=== PATIENT | male | born 1970 | race Caucasian/White ===

== ENCOUNTER 2016-10-22 20:08 | Inpatient (IN) | payer MEDICAID, OTHER ==
[~2016-10-22] VITALS: Ht 167.6 cm; Wt 42.2 kg
[2016-10-22] MEDS ORDERED: TRAM-40 PO (22:16)
[2016-10-22] MEDS ORDERED: DOCU-159 PO (22:16)
[2016-10-22] MEDS ORDERED: NEPH PO (22:17)
[2016-10-22] MEDS ORDERED: SEVE800T10 PO (22:17)
[2016-10-22] MEDS ORDERED: CHOL400T10 PO (22:18)
[2016-10-22] MEDS ORDERED: PYRI100T59 PO (22:19)
[2016-10-22] MEDS ORDERED: FOLI-49 PO (22:19)
[2016-10-22] MEDS ORDERED: RANI150T5 PO (22:19)
[2016-10-22] MEDS ORDERED: NIFE60TA7 PO (22:20)
[2016-10-22] MEDS ORDERED: PARO10TA76 PO (22:21)
[2016-10-22] MEDS ORDERED: AMAN100C65 PO (22:21)
[2016-10-22 23:08] LABS: BASOPHILS % 0.1 % (0.0-2.0); EOSINOPHILS % 1.5 % (0.0-7.0); HEMATOCRIT 32.4 % (42.0-52.0); HEMOGLOBIN 10.8 g/dl (14.0-18.0); LYMPHOCYTES # 0.3 10^3/ul (0.8-2.9); LYMPHOCYTES % 8.1 % (15.0-51.0); MEAN CORPUSCULAR HEMOGLOBIN 30.7 pg (29.0-33.0); MEAN CORPUSCULAR HGB CONC 33.2 g/dl (32.0-37.0); MEAN CORPUSCULAR VOLUME 92.4 fl (82.0-101.0); MEAN PLATELET VOLUME 7.3 fl (7.4-10.4); MONOCYTE # 0.5 10^3/ul (0.3-0.9); MONOCYTES % 14.5 % (0.0-11.0); NEUTROPHIL # 2.5 10^3/ul (1.6-7.5); NEUTROPHILS % 75.8 % (39.0-77.0); PLATELET COUNT 163 10^3/UL (140-440); RED BLOOD COUNT 3.51 10^6/ul (4.70-6.10); RED CELL DISTRIBUTION WIDTH 15.4 % (11.5-14.5); UNCORRECTED WBC 3.3 10^3/ul (4.8-10.8); WHITE BLOOD COUNT 3.3 10^3/ul (4.8-10.8)
[2016-10-22 23:11] LABS: CONDITION 1; LH ANALYZER COMMENTS 1
[2016-10-22 23:17] LABS: INR 1.1; PROTIME 14.2 Sec (12.2-14.2); PT RATIO 1.1
[2016-10-22 23:18] LABS: PARTIAL THROMBOPLASTIN TIME 45.6 Sec (25.0-35.0); POTASSIUM 3.7 mmol/L (3.5-5.1)
[2016-10-22 23:20] LABS: CREATININE 2.84 mg/dl (0.61-1.24)
[2016-10-22 23:21] LABS: CALCIUM 9.4 mg/dl (8.4-10.2)
[2016-10-22 23:36] LABS: TROPONIN-I 0.57 ng/ml (0.00-0.12)
--- NOTE | 2016-10-22 23:49 | RADRPT ---
PROCEDURE: XR Chest. CLINICAL INDICATION: Patient experiencing a Headache TECHNIQUE: Single frontal chest x-ray. COMPARISON: None. FINDINGS: The lungs are clear. No focal opacification is seen. The cardiomediastinal silhouette is unremarka ble. The osseous structures are unremarkable. ECG leads projected over the chest. IMPRESSION: 1. There is no acute cardiopulmonary process. RPTAT: HJES .Quan Cowan MD, MD Date Time Electronically viewed and signed by .Quan Cowan MD, on 10/22/2016 23:48 .S/
[2016-10-23] VITALS (18 sets, daily range): BP systolic 126–155; BP diastolic 80–95; PULSE 60–86; RESP 16–18; TEMP 98; Ht 167.6 cm; Wt 42.2 kg
[2016-10-23] MEDS ORDERED: ASPIRIN 81 MG TAB PO ONE
--- NOTE | 2016-10-23 00:02 | RADRPT ---
PROCEDURE: CT Brain without contrast. CLINICAL INDICATION: Headaches TECHNIQUE: A CT of the brain was performed on a GE [employer] 64-slice CT scanner utilizing axial imaging from the skull base through the vertex without IV contrast. Multiplanar reformatted images were made. Images were reviewed on a PACS workstation. The CTDIvol is 86.10 mGy and the DLP is 162 0.51 mGycm. Study was repeated secondary to motion artifact. COMPARISON: None available FINDINGS: There is no intracranial hemorrhage, mass effect, or midline shift. No extra-axial fluid collection is seen. The ventricles and sulci are age appropriate. Mild diffuse volume loss is present. Decre ased attenuation is present in the right posterior limb of the internal capsule which may represent an acute ischemic infarct. This is anterior to a chronic right thalami capsular infarct. Extensive decreased attenuation is present in the bilateral subcortical white matter, centrum semiovale, and periventricular white matter. Decreased attenuation is also noted in the right delia randall. These ar e compatible with moderate chronic microvascular ischemic disease. The visualized scalp is remarkable for mild right frontal and left parietal scalp edema or small hem atomas. No evidence for calvarial fractures are present. The bilateral orbits are normal. The oscar ateral paranasal sinuses, mastoid air cells and middle ear cavities are clear. IMPRESSION: 1. Acute appearing non hemorrhagic right thalami capsular junction ischemic infarct anterior to a c hronic infarct in the same location. Recommend diffusion weighted MRI to further evaluate. 2. Moderate chronic microvascular ischemic disease 3. Mild diffuse volume loss. A call report was made to JOE Corley at 10/23/2016 12:01:58 AM following the completion of t he examination by the undersigned. Additional history provided is that of a wheelchair-bound dialysi s dependent diabetic patient. RPTAT: HDC .Rand Wolf MD, Date Time Electronically viewed and signed by .Rand Wolf MD, on 10/23/2016 00:02 .C/
--- NOTE | 2016-10-23 00:07 | ERA ---
ER Documentation Chief Complaint Date/Time DATE: 10/23/16 TIME: 00:04 Chief Complaint "dizziness during dialysis with high blood pressure" HPI This is a 46-year-old male l with dizziness during dialysis was severely elevated blood pressure today. Patient denied chest pain. Denies focal neurologic complaints. Patient is chair bound secondary left-sided CVA previously. No other current complaints. ROS All systems reviewed and are negative except as per history of present illness. Medications Home Meds Reported Medications Paroxetine Hcl* (Paroxetine*) 10 Mg Tablet, 10 MG PO DAILY, TAB 10/22/16 Amantadine Hcl* (Amantadine Hcl*) 100 Mg Capsule, 100 MG PO DAILY, #60 CAP 10/22/16 Nifedipine* (Nifedipine ER*) 60 Mg Tablet.sa, 60 MG PO DAILY, TAB.SA 10/22/16 Folic Acid* (Folic Acid*) 1 Mg Tablet, 1 MG PO DAILY, TAB 10/22/16 Pyridoxine Hcl* (Vitamin B-6*) 100 Mg Tablet, 100 MG PO DAILY, TAB 10/22/16 Ranitidine Hcl* (Ranitidine Hcl*) 150 Mg Tablet, 300 MG PO DAILY, #60 TAB 10/22/16 Cholecalciferol* (Vitamin D*) 400 Unit Tablet, 800 UNIT PO QHS, TAB 10/22/16 Sevelamer Hcl* (Renagel*) 800 Mg Tablet, 800 MG PO WITH MEALS, TAB 10/22/16 Multivit/Ca Carb/B Cmplx/Fa* (Germaine-Nae*) 1 Tab Tab, 1 TAB PO DAILY, TAB 10/22/16 Tramadol Hcl* (Ultram*) 50 Mg Tablet, 50 MG PO Q8 Y for PRN, TAB 10/22/16 Docusate Sodium* (Docusate Sodium*) 100 Mg Capsule, 100 MG PO DAILY, #30 CAP 10/22/16 Allergies Allergies: Coded Allergies: No Known Allergy (Unverified , 10/22/16) PMhx/Soc History of Surgery: Yes (AVF PLACEMENT) Anesthesia Reaction: No Hx Neurological Disorder: Yes (CVA WITH LEFT SIDE DEFICIT) Hx Respiratory Disorders: No Hx Cardiac Disorders: Yes (HTN, HLD) Hx Psychiatric Problems: No Hx Miscellaneous Medical Probl: Yes (CKD ON HD TTHS) Hx Alcohol Use: No Hx Substance Use: No Hx Tobacco Use: No Smoking Status: Never smoker Physical Exam Vitals Vital Signs Date Time Temp Pulse Resp B/P Pulse Ox O2 Delivery O2 Flow Rate FiO2 10/22/16 22:03 98.0 73 18 153/96 98 Room Air 10/22/16 20:26 98.4 95 18 147/89 98 Physical Exam Const: [] Head: Atraumatic Eyes: Normal Conjunctiva ENT: Normal External Ears, Nose and Mouth. Neck: Full range of motion..~ No meningismus. Resp: Clear to auscultation bilaterally Cardio: Regular rate and rhythm, no murmurs Abd: Soft, non tender, non distended. Normal bowel sounds Skin: No petechiae or rashes Back: No midline or flank tenderness Ext: No cyanosis, or edema Neur: Awake and alert Psych: Normal Mood and Affect Result Diagram: 10/22/16222910/22/162229 Results 24 hrs Laboratory Tests Test 10/22/16 22:30 Activated Partial Thromboplast Time 45.6Sec Anion Gap 16 Basophils # 0.010^3/ul Basophils % 0.1% Blood Morphology Comment Blood Urea Nitrogen 18mg/dl Calcium Level 9.4mg/dl Carbon Dioxide Level 33mmol/L Chloride Level 91mmol/L Creatinine 2.84mg/dl Eosinophils # 0.010^3/ul Eosinophils % 1.5% Glucose Level 99mg/dl Hematocrit 32.4% Hemoglobin 10.8g/dl INR International Normalized Ratio 1.10 Lymphocytes # 0.310^3/ul Lymphocytes % 8.1% Mean Corpuscular Hemoglobin 30.7pg Mean Corpuscular Hemoglobin Concent 33.2g/dl Mean Corpuscular Volume 92.4fl Mean Platelet Volume 7.3fl Monocytes # 0.510^3/ul Monocytes % 14.5% Neutrophils # 2.510^3/ul Neutrophils % 75.8% Nucleated Red Blood Cells # 0.010^3/ul Nucleated Red Blood Cells % 0.0/100WBC Platelet Count 61350^3/UL Potassium Level 3.7mmol/L Prothrombin Time 14.2Sec Prothrombin Time Ratio 1.1 Red Blood Count 3.5110^6/ul Red Cell Distribution Width 15.4% Sodium Level 136mmol/L Troponin I 0.570ng/ml White Blood Count 3.310^3/ul Current Medications Medications (Trade) Dose Ordered Sig/Bijan Route PRN Reason Start Time Stop Time Status Last Admin Dose Admin Aspirin (Aspirin) 324 mg ONCE ONCE PO 10/23/16 00:00 10/23/16 00:01 DC 10/22/16 23:59 Procedures/MDM EKG: Rate/Rhythm: Normal Sinus Rhythm QRS, ST, T-waves: No changes consistent w/ acute ischemia Impression: No evidence of ischemia or arrhythmia Chest X-ray 1V Interpreted by me: Soft Tissue: No acute abnormalities Bones: No acute abnormalities Mediastinum/Cardiac Silhouette/Lungs: No acute abnormalities CT of the head shows a subacute stroke Medical decision making: This very pleasant gentleman is a positive troponin along with a subacute stroke. Patient has been started on aspirin therapy. Emergency part. Patient will be admitted to hospitalist. Critical Care: Time: 45 minutes Treatments/Evaluations: Close monitoring and treatment of unstable vital signs, cardiorespiratory, and neurologic status, while maintaining tight balance of fluid, respiratory, and cardiac interventions. Departure Diagnosis: Primary Impression: Dizziness Additional Impressions: Non-STEMI (non-ST elevated myocardial infarction) CVA (cerebral vascular accident) Qualified Code: I63.9 - Cerebrovascular accident (CVA), unspecified mechanism Condition: Critical ACELAURARADHA HUNTEL Barney Oct 23, 2016 00:07
[2016-10-23] MEDS ORDERED: traMADol 50 MG TAB PO PRN (02:00)
[2016-10-23] MEDS: HEPARIN 5,000 UNIT/0.5 ML SYG SC SCH ×3 (02:30→21:11)
--- NOTE | 2016-10-23 02:58 | RADRPT ---
PROCEDURE: Doppler US Carotids. CLINICAL INDICATION: Headache. Right thalamic stroke. TECHNIQUE: Multiple sonographic of the carotid bifurcation region and vertebral arteries were obta ined utilizing dumont scale, duplex and color-flow imaging. The images were reviewed on a PACS worksta tion. Stenoses were measured using SRU criteria where appropriate. COMPARISON: None FINDINGS: Evaluation of the right carotid system shows no significant intimal medial thickening and no plaque formation.. Evaluation of the left carotid system shows no significant anteromedial thickening and no plaque for mation.. There is antegrade flow within the vertebral arteries bilaterally. RIGHT CAROTID MEASUREMENTS: Common Carotid Qbudbt94.1 (cm/sec) Internal Carotid Artery - wwdlucwe92.5 (cm/sec) Internal Carotid Artery - mid30.5 (cm/sec) Internal Carotid Artery - .6 (cm/sec) Internal Carotid/Common Carotid0.78 LEFT CAROTID MEASUREMENTS: Common Carotid Artery 68.1 (cm/sec) Internal Carotid Artery - proximal 47.3 (cm/sec) Internal Carotid Artery - mid 67.3(cm/sec) Internal Carotid Artery - distal 37.3(cm/sec) Internal Carotid/Common Carotid 0.99 IMPRESSION: 1. No evidence for hemodynamically significant carotid artery stenosis. 2. Normal antegrade flow in the vertebral arteries bilaterally. RPTAT: HLBE Physician Eyad Date Time Electronically viewed and signed by Physician Eyad on 10/23/2016 02:57 CHARAN/
[2016-10-23 06:03] LABS: BASOPHILS % 1.3 % (0.0-2.0); EOSINOPHILS % 1.2 % (0.0-7.0); HEMATOCRIT 33.4 % (42.0-52.0); HEMOGLOBIN 11.1 g/dl (14.0-18.0); LYMPHOCYTES # 0.3 10^3/ul (0.8-2.9); LYMPHOCYTES % 12.2 % (15.0-51.0); MEAN CORPUSCULAR HEMOGLOBIN 31.1 pg (29.0-33.0); MEAN CORPUSCULAR HGB CONC 33.4 g/dl (32.0-37.0); MEAN CORPUSCULAR VOLUME 93.2 fl (82.0-101.0); MEAN PLATELET VOLUME 7.4 fl (7.4-10.4); MONOCYTE # 0.4 10^3/ul (0.3-0.9); MONOCYTES % 14.6 % (0.0-11.0); NEUTROPHILS % 70.7 % (39.0-77.0); PLATELET COUNT 154 10^3/UL (140-440); RED BLOOD COUNT 3.58 10^6/ul (4.70-6.10); RED CELL DISTRIBUTION WIDTH 15.7 % (11.5-14.5); UNCORRECTED WBC 2.9 10^3/ul (4.8-10.8); WHITE BLOOD COUNT 2.9 10^3/ul (4.8-10.8)
[2016-10-23 06:10] LABS: ALBUMIN 3.7 g/dl (3.3-4.9)
[2016-10-23 06:11] LABS: CHLORIDE 94 mmol/L (97-110); SODIUM 136 mmol/L (135-144)
[2016-10-23 06:13] LABS: ALANINE AMINOTRANSFERASE 42 IU/L (13-69); ALKALINE PHOSPHATASE 64 IU/L (42-121); ANION GAP 15 (8-16); ASPARTATE AMINO TRANSFERASE 33 IU/L (15-46); BILIRUBIN,INDIRECT 0.1 mg/dl (0-1.1); BILIRUBIN,TOTAL 0.1 mg/dl (0.2-1.3); BLOOD UREA NITROGEN 22 mg/dl (7-20); CARBON DIOXIDE 31 mmol/L (21-31); CHOLESTEROL 95 mg/dl (100-200); CONDITION 1; CREATININE 3.56 mg/dl (0.61-1.24); GLUCOSE 78 mg/dl (70-220); LH ANALYZER COMMENTS 1; PHOSPHORUS 3.3 mg/dl (2.5-4.9); TOTAL PROTEIN 6.2 g/dl (6.1-8.1); TRIGLYCERIDES 50 mg/dl (0-149)
[2016-10-23 06:14] LABS: CALCIUM 9.5 mg/dl (8.4-10.2); CHOL/HDL RATIO 1.8 RATIO; HDL CHOLESTEROL 51 mg/dl (27-67); MAGNESIUM 2.2 mg/dl (1.7-2.5)
[2016-10-23 06:40] LABS: IRON 167 ug/dl (35-150)
[2016-10-23 06:50] LABS: TOTAL IRON BINDING CAPACITY 197 ug/dl (241-421)
[2016-10-23 07:20] LABS: FOLATE > 20.0 ng/ml (2.8-20.0)
--- NOTE | 2016-10-23 08:48 | HP ---
DATE OF ADMISSION: 10/22/2016 PRESENTING COMPLAINT: The patient was sent from dialysis center for dizziness as well as shortness of breath. PRESENTING COMPLAINT: The patient was sent from Dialysis Center for dizziness as well as shortness of breath. HISTORY OF PRESENTING COMPLAINT: This is a 46-year-old unfortunate male with a history of end-stage renal disease on hemodialysis, high blood pressure, and a previous stroke who was at dialysis today when he started having episodes of dizziness and a feeling of near syncope. The patient reported t hat he also had mild chest discomfort as well as some chest pressure, and because of that, they sent him to the emergency room for further workup. In the emergency room, he was found to have elevated troponins, and a CT scan is concerning for an acute CVA, so he is being admitted for further manage ment. PAST MEDICAL HISTORY: 1. End-stage renal disease, on hemodialysis Friday, , and Friday. 2. Depression. 3. Previous cerebrovascular accident. 4. Anemia of chronic kidney disease. 5. High blood pressure. 6. 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 PAST SURGICAL HISTORY: Dialysis access placement. ALLERGIES: THE PATIENT HAS NO KNOWN DRUG ALLERGIES. SOCIAL HISTORY: Denies tobacco, alcohol, or illicit drug use. FAMILY HISTORY: Positive for high blood pressure. REVIEW OF SYSTEMS: A 12-point review of system was done. The patient denies fever. He denies abdo jerson pain. He denies dysuria or hematuria. He had an episode of epistaxis when he first came into the emergency room. All other systems were reviewed and negative. PHYSICAL EXAMINATION: VITAL SIGNS: Temperature 98.0, pulse is 73, respirations 18, blood pressure 153/96, saturations wer e 98% on room air. GENERAL: The patient is alert and oriented, in no distress. HEENT: Head normocephalic. Pupils are equal and reactive. NECK: Supple. CHEST: Slightly reduced air entry bilaterally. CARDIOVASCULAR: Heart sounds S1 and S2, without added sounds or murmurs. ABDOMEN: Soft, nontender, nondistended. EXTREMITIES: Lower extremities are negative for edema. NEUROLOGIC: He has chronic left-sided deficits from previous CVA. LABORATORY VALUES: The following abnormalities were pertinent: A leukopenia of 3.3, a hemoglobin o f 10.8, elevated troponin of 0.570, elevated creatinine of 2.84, and his PTT was mildly elevated at 45.6. IMAGING: His chest x-ray did not show any acute cardiopulmonary abnormalities, even with radiology review, and his EKG did not show any acute ST elevations or reciprocal depressions concerning for an acute ischemia. A CT of his brain, however, did show an acute right thalamic ischemic infarct with a chronic infarct in the same location as well as moderate chronic microvascular ischemic changes. IMPRESSION: A 46-year-old unfortunate male with the followin. Dizziness, near syncope, likely secondary to #2. 2. Jqm-BW-jisldxrya myocardial infarction. 3. Acute cerebrovascular accident on chronic cerebrovascular accident with chronic residual left-si ded paralysis. 4. High blood pressure with suboptimal control. 5. End-stage renal disease, on hemodialysis. 6. Chronic debility from previous cerebrovascular accident. 7. Anemia of chronic kidney disease with associated leukopenia. 8. Chronic depression. PLAN OF CARE: The patient is to be admitted to telemetry floor and will complete the ACS rule out. He will benefit from a 2-D echocardiogram, cardiology consultation, and neurology consultation as w tonya. He will also need in-house hemodialysis. Will consult his speech and language specialist to continue that. He will also benefit from an MRI to confirm diagnosis of stroke, and once cleared by neurology he will be able to be started on physical therapy. At this time we going to hold off on statins as well as heparin because I am not sure of the extent of the stroke and the probability of concerns for maybe hemorrhagic conversion, however, if cleared by neurology, we will go ahead and institute this. In t he interim, the patient is to be started on statin as well as aspirin therapy and we will go from ere. For his comorbidities, he will be continued on all his previous home meds. For further inform ation and clarification, please review the patient's chart and my orders. For prophylaxis. I have him on heparin at the prophylaxis dose and I continued his home ranitidine as well. This plan of care has been reviewed with patient, questions have been answered. For clarification a nd further information, please review the patient's chart and my orders. Dictated By: KIA FREEDMAN MD, BA/LOURDES Conf#: [id number] DID#: [id number]
[2016-10-23] MEDS: ASPIRIN 325 MG TAB PO SCH (09:32)
[2016-10-23] MEDS: ATORVASTATIN 40 MG TAB PO SCH (09:33)
[2016-10-23] MEDS: SEVELAMER 800 MG TAB PO SCH ×3 (09:34→17:55)
[2016-10-23] MEDS: PYRIDOXINE 50 MG TAB PO SCH (09:34)
[2016-10-23] MEDS: NIFEdipine (XL) 60 MG TAB PO SCH (09:35)
[2016-10-23] MEDS: RANITIDINE 150 MG TAB PO SCH ×2 (09:35→20:39)
[2016-10-23] MEDS: DOCUSATE SODIUM 100 MG CAP PO SCH (09:36)
[2016-10-23] MEDS: FOLIC ACID 1 MG TAB PO SCH (09:36)
[2016-10-23] MEDS: PAROXETINE 10 MG TAB PO SCH (09:36)
[2016-10-23] MEDS: MULTIVIT/CA CARB/B CMPLX/FA TAB PO SCH (09:36)
[2016-10-23 09:54] LABS: CK-MB 5.07 ng/ml (0.0-2.4); TROPONIN-I 0.641 ng/ml (0.00-0.12)
--- NOTE | 2016-10-23 10:10 | QN ---
Documentation Comment Observation Note: Time: 4 hours Family Hx: Negative for diabetes Evaluation: Multiple exams showed improving symptoms and no evidence of clinical decompensation. NUBIA PAREDES MD Oct 23, 2016 10:09
--- NOTE | 2016-10-23 11:05 | RADRPT ---
PROCEDURE: MRI Brain without contrast. CLINICAL INDICATION: Weakness, acute CVA TECHNIQUE: MRI of the brain was performed on a GE [employer] 3.0T scanner with the following sequ ences obtained: Sagittal and axial T1-weighted, axial T2-weighted, axial FLAIR, axial diffusion jessika ghted (with ADC map), and coronal GRE. COMPARISON: CT brain 10/22/2016 FINDINGS: Patient motion related artifacts are present which somewhat limit evaluation. No acute/recent ische aman infarction or intracranial hemorrhage is seen. No extra-axial fluid collection is seen. There i s no mass effect or midline shift. There is an area of marked decreased T1-weighted/T2-weighted signal intensity centered in the right thalamus extending into the adjacent posterior right sanford radiata with associated susceptibility a rtifact compatible with chronic blood products/hemorrhage, and minimal adjacent encephalomalacia - g liosis noted in the adjacent posterior limb of the right internal capsule. There is suggestion of a linear tract in the left frontal lobe with mild adjacent gliosis and suscep tibility seen on the B0 images of the diffusion weighted sequence, suggestive of the sequela of prio r external ventricular drainage. Also seen is suggestion of a punctate focus of susceptibility on t he B0 images in the left randall which may reflect a chronic micro hemorrhage. A small chronic lacunar infarct is seen in the deep right frontal white matter. The ventricles and sulci are mild to moderately enlarged compatible with volume loss. There are moderate areas of incr eased T2-weighted FLAIR signal intensity in the periventricular - deep white matter which are nonspe cific but likely reflect chronic small vessel ischemic changes. Flow voids are grossly visible in t he proximal intracranial arteries and dural sinuses suggesting patency. The mastoid air cells and p aranasal sinuses are grossly clear. IMPRESSION: 1. Somewhat limited evaluation due to motion, without acute intracranial pathology identified. 2. Findings compatible with chronic hemorrhage centered in the right thalamus extending into the ri ght sanford radiata. Also seen is suggestion of a chronic micro hemorrhage in the left randall. 3. Chronic right frontal lacunar infarct. 4. Mild to moderate volume loss, with moderate chronic small vessel ischemic changes. 5. Also noted are findings suggesting the sequela of prior left trans frontal external ventricular drainage. RPTAT: HESO .Jose M Welsh MD, MD Date Time Electronically viewed and signed by .Jose M Welsh MD, on 10/23/2016 11:05 .O/
--- NOTE | 2016-10-23 12:12 | PN ---
Date/Time of Note Date/Time of Note DATE: 10/23/16 TIME: 12:06 Assessment/Plan VTE Prophylaxis VTE Prophylaxis Intervention: SCD's Assessment/Plan Chief Complaint/Hosp Course Assessment and plan 1. Dizziness and syncope suspect secondary to acute CVA. Continue antiplatelet therapy as well as statin medication. Neurologist consulted. We'll follow-up with recommendations. Of note patient did have MRI of the brain on 10/15/2016 that did show findings compatible with chronic hemorrhage centered in the right thalamus extending into the right sanford radiata. There is also seen chronic right frontal lacunar infarct. 2. Non-ST elevated microinfarction. Supply Coordinator following. Follow-up with recommendations. Of note patient does have end-stage renal disease on dialysis 3. Essential hypertension. Continue on anti-hypertensives and adjust as needed. 4. End-stage renal disease. Continue on dialysis. Monitor renal panel. 5. 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 We'll get physical therapist to follow. 6. Anemia of chronic disease. H&H remained stable. We'll monitor. 7. History of major depression. Continue on Paxil 8. History of dyslipidemia. Continue on statin medication Disposition and plan: Neurologist consulted. Follow-up with recommendations. Await cardiology input for nstemi. Continue patient monitoring Discussed plan of care with Problems: Subjective 24 Hr Interval Summary Free Text/Dictation no s/s of distress Exam/Review of Systems Vital Signs Vitals Vital Signs Date Time Temp Pulse Resp B/P Pulse Ox O2 Delivery O2 Flow Rate FiO2 10/23/16 07:19 97.9 56 16 172/99 99 Room Air Exam General: No acute signs or symptoms of distress Eyes: pupils equal round, Anicteric sclera Neck: Supple nontender, no JVD Cardiac: S1, S2 auscultated, regular rhythm and rate Pulmonary: No coarse rhonchi or breathing auscultated GI: Abdomen soft nontender nondistended, bowel sounds active Extremities: No edema bilateral lower extremities Skin: Clean dry and intact Neurologic: [Noted with some left-sided weakness Results Result Diagram: 10/23/16 0538 10/23/16 0538 Results 24 hrs Laboratory Tests Test 10/22/16 22:30 10/23/16 05:38 10/23/16 09:20 Activated Partial Thromboplast Time 45.6 H Anion Gap 16 15 Basophils # 0.0 0.0 Basophils % 0.1 1.3 Blood Morphology Comment Blood Urea Nitrogen 18 22 H Calcium Level 9.4 9.5 Carbon Dioxide Level 33 H 31 Chloride Level 91 L 94 L Creatinine 2.84 H 3.56 H Eosinophils # 0.0 0.0 Eosinophils % 1.5 1.2 Glucose Level 99 78 Hematocrit 32.4 L 33.4 L Hemoglobin 10.8 L 11.1 L INR International Normalized Ratio 1.10 Lymphocytes # 0.3 L 0.3 L Lymphocytes % 8.1 L 12.2 L Mean Corpuscular Hemoglobin 30.7 31.1 Mean Corpuscular Hemoglobin Concent 33.2 33.4 Mean Corpuscular Volume 92.4 93.2 Mean Platelet Volume 7.3 L 7.4 Monocytes # 0.5 0.4 Monocytes % 14.5 H 14.6 H Neutrophils # 2.5 2.0 Neutrophils % 75.8 70.7 Nucleated Red Blood Cells # 0.0 0.0 Nucleated Red Blood Cells % 0.0 0.0 Platelet Count 163 154 Potassium Level 3.7 4.0 Prothrombin Time 14.2 Prothrombin Time Ratio 1.1 Red Blood Count 3.51 L 3.58 L Red Cell Distribution Width 15.4 H 15.7 H Sodium Level 136 136 Troponin I 0.570 *H 0.641 *H White Blood Count 3.3 L 2.9 L Alanine Aminotransferase (ALT/SGPT) 42 Albumin 3.7 Alkaline Phosphatase 64 Aspartate Amino Transf (AST/SGOT) 33 Cholesterol Level 95 L Cholesterol/HDL Ratio 1.8 Direct Bilirubin 0.00 Folate > 20.0 H HDL Cholesterol 51 Indirect Bilirubin 0.1 Iron Level 167 H LDL Cholesterol, Calculated 34 Magnesium Level 2.2 Percent Iron Saturation 85 H Phosphorus Level 3.3 Thyroid Stimulating Hormone (TSH) 4.390 Total Bilirubin 0.1 L Total Iron Binding Capacity 197 L Total Protein 6.2 Triglycerides Level 50 Creatine Kinase 145 Creatine Kinase Index 3.5 Creatinine Kinase MB (Mass) 5.07 H Medications Medications Current Medications Amantadine HCl (Symmetrel) 100 mg DAILY PO ; Start 10/23/16 at 09:00 Cholecalciferol (Vitamin D) 800 units QHS PO ; Start 10/23/16 at 21:00 Docusate Sodium (Colace) 100 mg DAILY PO Last administered on 12/28/16at 09:36 ; Admin Dose 100 MG; Start 10/23/16 at 09:00 Folic Acid (Folic Acid) 1 mg DAILY PO Last administered on 10/23/16 09:36; Admin Dose 1 MG; Start 10/23/16 at 09:00 Multivit/Ca Carb/ B Cmplx/FA/Prenat (Germaine-Nae) 1 tab DAILY PO Last administered on 10/23/16 09:36; Admin Dose 1 TAB; Start 10/23/16 at 09:00 Nifedipine (Procardia Xl) 60 mg DAILY PO Last administered on 10/23/16 09:35 ; Admin Dose 60 MG; Start 10/23/16 at 09:00 Paroxetine HCl (Paxil) 10 mg DAILY PO Last administered on 10/23/16 09:36; Admin Dose 10 MG; Start 10/23/16 at 09:00 Pyridoxine HCl (Vitamin B6) 100 mg DAILY PO Last administered on 10/23/16 09: 34; Admin Dose 100 MG; Start 10/23/16 at 09:00 Ranitidine HCl (Zantac) 150 mg BID PO Last administered on 10/23/16 09:35; Admin Dose 150 MG; Start 10/23/16 at 09:00 Tramadol HCl (Ultram) 50 mg Q8H PRN PO PRN; Start 10/23/16 at 02:00 Aspirin (Aspirin) 325 mg DAILY PO Last administered on 10/23/16 09:32; Admin Dose 325 MG; Start 10/23/16 at 09:00 Heparin Sodium (Porcine) (Heparin (5000 Units/0.5 ml)) 5,000 unit BID SC ; Start 10/23/16 at 02:30 Atorvastatin Calcium (Lipitor) 40 mg DAILY PO Last administered on 10/23/16 09:33; Admin Dose 40 MG; Start 10/23/16 at 09:00 SANTO KIMBROUGH Oct 23, 2016 12:11
--- NOTE | 2016-10-23 12:20 | CONS ---
Date/Time of Note Date/Time of Note DATE: 10/23/16 TIME: 12:13 Assessment/Plan Assessment/Plan Additional Assessment/Plan Elevated troponin Hypertension End-stage renal disease on hemodialysis History of CVA with possible acute CVA -Patient's troponins are mildly elevated and has remained static. He denies chest pain, shortness of breath, this is likely secondary to hypertension and decreased renal clearance. Would obtain echocardiogram. Patient undergoing evaluation for possible CVA, unclear if this is acute or chronic. Would defer management to the primary team. Blood pressure has improved, will start ROMAN inhibitor. Continue statin therapy if no contraindication. Consultation Date/Type/Reason Admit Date/Time Type of Consultation: cv Reason for Consultation Elevated troponin Hx of Present Illness This is a 46-year-old male with past medical history of end-stage renal disease on hemodialysis, hypertension and CVA with left hemiparesis who presents from dialysis center secondary to hypertension and dizziness. Patient states he has been having difficult to control blood pressure for over a year. He does take his medications on a regular basis but his blood pressure remains elevated. He otherwise denies any chest pain, shortness of breath, palpitations. He feels better now but still has mild dizziness. Denies any fevers or chills, abdominal pain, nausea or vomiting. 12 point review of systems was performed with all pertinent positives and negatives mentioned above and all else is negative Past Medical History CVA Medical History: hypertension, renal disease Past Surgical History Dialysis fistula Family History Significant Family History: no pertinent family hx Social History Alcohol Use: none Smoking Status: Former smoker Drug Use: none Exam/Review of Systems Vital Signs Vitals Vital Signs Date Time Temp Pulse Resp B/P Pulse Ox O2 Delivery O2 Flow Rate FiO2 10/23/16 07:19 97.9 56 16 172/99 99 Room Air Exam No apparent distress Constitutional: alert, frail, oriented Head: normocephalic Neck: supple Respiratory: other (course breath sounds bilaterally, no wheezing) Cardiovascular: other (S1 and S2 heard), regular rate and rhythm Gastrointestinal: bowel sounds, non-tender, soft Extremities: edema (trace) Results Result Diagram: 10/23/16 0538 10/23/16 0538 Results 24 hrs Laboratory Tests Test 10/22/16 22:30 10/23/16 05:38 10/23/16 09:20 Activated Partial Thromboplast Time 45.6 H Anion Gap 16 15 Basophils # 0.0 0.0 Basophils % 0.1 1.3 Blood Morphology Comment Blood Urea Nitrogen 18 22 H Calcium Level 9.4 9.5 Carbon Dioxide Level 33 H 31 Chloride Level 91 L 94 L Creatinine 2.84 H 3.56 H Eosinophils # 0.0 0.0 Eosinophils % 1.5 1.2 Glucose Level 99 78 Hematocrit 32.4 L 33.4 L Hemoglobin 10.8 L 11.1 L INR International Normalized Ratio 1.10 Lymphocytes # 0.3 L 0.3 L Lymphocytes % 8.1 L 12.2 L Mean Corpuscular Hemoglobin 30.7 31.1 Mean Corpuscular Hemoglobin Concent 33.2 33.4 Mean Corpuscular Volume 92.4 93.2 Mean Platelet Volume 7.3 L 7.4 Monocytes # 0.5 0.4 Monocytes % 14.5 H 14.6 H Neutrophils # 2.5 2.0 Neutrophils % 75.8 70.7 Nucleated Red Blood Cells # 0.0 0.0 Nucleated Red Blood Cells % 0.0 0.0 Platelet Count 163 154 Potassium Level 3.7 4.0 Prothrombin Time 14.2 Prothrombin Time Ratio 1.1 Red Blood Count 3.51 L 3.58 L Red Cell Distribution Width 15.4 H 15.7 H Sodium Level 136 136 Troponin I 0.570 *H 0.641 *H White Blood Count 3.3 L 2.9 L Alanine Aminotransferase (ALT/SGPT) 42 Albumin 3.7 Alkaline Phosphatase 64 Aspartate Amino Transf (AST/SGOT) 33 Cholesterol Level 95 L Cholesterol/HDL Ratio 1.8 Direct Bilirubin 0.00 Folate > 20.0 H HDL Cholesterol 51 Indirect Bilirubin 0.1 Iron Level 167 H LDL Cholesterol, Calculated 34 Magnesium Level 2.2 Percent Iron Saturation 85 H Phosphorus Level 3.3 Thyroid Stimulating Hormone (TSH) 4.390 Total Bilirubin 0.1 L Total Iron Binding Capacity 197 L Total Protein 6.2 Triglycerides Level 50 Creatine Kinase 145 Creatine Kinase Index 3.5 Creatinine Kinase MB (Mass) 5.07 H Medications Medications Current Medications Amantadine HCl (Symmetrel) 100 mg DAILY PO ; Start 10/23/16 at 09:00 Cholecalciferol (Vitamin D) 800 units QHS PO ; Start 10/23/16 at 21:00 Docusate Sodium (Colace) 100 mg DAILY PO Last administered on 10/23/16 09:36 ; Admin Dose 100 MG; Start 10/23/16 at 09:00 Folic Acid (Folic Acid) 1 mg DAILY PO Last administered on 10/23/16 09:36; Admin Dose 1 MG; Start 10/23/16 at 09:00 Multivit/Ca Carb/ B Cmplx/FA/Prenat (Germaine-Nae) 1 tab DAILY PO Last administered on 10/23/16 09:36; Admin Dose 1 TAB; Start 10/23/16 at 09:00 Nifedipine (Procardia Xl) 60 mg DAILY PO Last administered on 10/23/16 09:35 ; Admin Dose 60 MG; Start 10/23/16 at 09:00 Paroxetine HCl (Paxil) 10 mg DAILY PO Last administered on 10/23/16 09:36; Admin Dose 10 MG; Start 10/23/16 at 09:00 Pyridoxine HCl (Vitamin B6) 100 mg DAILY PO Last administered on 10/23/16 09: 34; Admin Dose 100 MG; Start 10/23/16 at 09:00 Ranitidine HCl (Zantac) 150 mg BID PO Last administered on 10/23/16 09:35; Admin Dose 150 MG; Start 10/23/16 at 09:00 Tramadol HCl (Ultram) 50 mg Q8H PRN PO PRN; Start 10/23/16 at 02:00 Aspirin (Aspirin) 325 mg DAILY PO Last administered on 10/23/16 09:32; Admin Dose 325 MG; Start 10/23/16 at 09:00 Heparin Sodium (Porcine) (Heparin (5000 Units/0.5 ml)) 5,000 unit BID SC ; Start 10/23/16 at 02:30 Atorvastatin Calcium (Lipitor) 40 mg DAILY PO Last administered on 10/23/16 09:33; Admin Dose 40 MG; Start 10/23/16 at 09:00 Procedures Procedures ECG demonstrates sinus bradycardia at 54 bpm, QRS 122 ms, nonspecific STT wave abnormalities Abdulaziz Ny DO Oct 23, 2016 12:20
[2016-10-23] MEDS: AMANTADINE 100 MG CAP PO SCH (13:58)
--- NOTE | 2016-10-23 14:28 | RADRPT ---
Echocardiogram Report Patient Name: ROISE CASILLAS Gender: Male Date: 1970 Study Date: 23-Oct-2016 [place] Sewer: Nitza Brizuela RDCS Location: [facility] Ref. Physician: KIA FREEDMAN Quality: Adequate Procedures: Transthoracic echocardiogram with complete 2D, M-Mode, and doppler examination. Indications: NSTEMI. 2D/M Mode Doppler Measurement Value Normal Ranges Measurement Value Normal Ranges LVIDd 2D 5.3 3.5 - 5.6 cm AV Peak Genaro 1.6 m/sec LVIDs 2D 2.9 2.1 - 4.1 cm AV Peak PG 10.1 mmHg LVPWd 2D 1.2 0.6 - 1.1 cm LVOT Peak Genaro 1.2 m/sec IVSd 2D 1.1 0.6 - 1.1 cm LVOT Peak PG 5.9 mmHg AoR Diam 2D 2.6 2.0 - 3.7 cm MV E Peak Genaro 0.7 m/sec EDV 2D 135.4 cm3 MV A Peak Genaro 0.7 m/sec ESV 2D 25.5 cm3 MV E/A 1.0 LA Dimen 2D 3.5 2.3 - 4.0 cm MV Decel Time 230 msec MV Decel [place] 3 MV E/A 1.0 Findings Left Ventricle: Lower limits of normal systolic function. Normal left ventricular cavity size. Mild concentric left ventricular hypertrophy. Ejection fraction is visually estimated at 50 %. Tissue Doppler/Mitral Doppler indices are consistent with pseudonormalization with mildly elevated left atrial pressure (Stage II diastolic dysfunction). Right Ventricle: Normal right ventricular size. Normal right ventricular systolic function. Left Atrium: There is mild enlargement of left atrium. Right Atrium: The right atrium is normal in size. Mitral Valve: Mitral valve leaflets appear mildly thickened. Mild mitral annular calcification. Mild mitral valve regurgitation. Aortic Valve: No hemodynamically significant aortic stenosis by doppler. Aortic cusps appear mildly calcified. Trace aortic valve regurgitation. Tricuspid Valve: Normal appearance and function of the tricuspid valve with trace physiologic regurgitation. Pulmonic Valve: Pulmonic valve not well visualized. Pericardium: Normal pericardium with no significant pericardial effusion. Aorta: Normal aortic root. IVC: Normal size and normal respiratory collapse consistent with normal right atrial pressure. Pulmonary Artery: Normal pulmonary artery size. Conclusions 1.Lower limits of normal systolic function. Normal left ventricular cavity size. Mild concentric left ventricular hypertrophy. Ejection fraction is visually estimated at 50 %. Tissue Doppler/Mitral Doppler indices are consistent with pseudonormalization with mildly elevated left atrial pressure (Stage II diastolic dysfunction). 2.Normal right ventricular size. Normal right ventricular systolic function. 3.There is mild enlargement of left atrium. 4.The right atrium is normal in size. 5.Mild mitral valve regurgitation. 6.No significant valvular stenosis or regurgitation seen of remaining visualized valves. 7.Normal pericardium with no significant pericardial effusion. Electronically Signed By: Abdulaziz Ny 23-Oct-2016 14:27:48 -0800 Patient Name: ROSIE CASILLAS Study Date: 23-Oct-2016 [id number]
--- NOTE | 2016-10-23 15:40 | CONS ---
Date/Time of Note Date/Time of Note DATE: 10/23/16 TIME: 15:28 Assessment/Plan Assessment/Plan Chief Complaint/Hosp Course 46 year old M ESRD, HTN, previous CVA with hemorrhagic component likely secondary to advanced small vessel disease and uncontrolled hypertension. likely hypertensive emergency -MRI Brain reviewed, carotid duplex wnl -MRA Head without contrast ordered for further evaluation for large vessel stenosis -may continue on antiplatelet therapy with Aspirin -maintain BP<140/90 -LDL: 34 continue on current dose of statin -check HBA1C -PT/OT/Speech evaluation -will continue to follow Problems: Consultation Date/Type/Reason Admit Date/Time 10/23/16 Date of Consultation: Oct 23, 2016 Type of Consultation: eval for stroke Reason for Consultation r/o CVA hypertensive emergency Referring Provider: KIA FREEDMAN Hx of Present Illness 46 year old male with hx of ESRD on HD, HTN, previous CVA with residual left sided hemiparesis presented from dialysis center with elevated blood pressure and complaint of dizziness. Per chart he has had difficulty controlling his blood pressure for the past year, reports being compliant with meds including aspirin. Initial documented BP: 183/90. MRI shows right thalamic chronic hemorrhage, encephalomalacia and gliosis in posterior limb of right internal capsule. hemorrhage. chronic microvascular disease Constitutional: no complaints Eyes: no complaints ENT: no complaints Respiratory: no complaints Cardiovascular: no complaints Gastrointestinal: no complaints Genitourinary: no complaints Musculoskeletal: no complaints Skin: no complaints Neurologic: dizziness Past Medical History as per hpi Medical History: hypertension, renal disease Social History Alcohol Use: none Smoking Status: Former smoker Drug Use: none Exam/Review of Systems Vital Signs Vitals Vital Signs Date Time Temp Pulse Resp B/P Pulse Ox O2 Delivery O2 Flow Rate FiO2 10/23/16 14:46 97.7 82 18 136/95 100 10/23/16 14:23 Room Air Exam awake and alert no acute distress appears older than stated age, thin oriented x3 appears comfortable speech is mildly dysarthric, but fluent with no aphasia CN: LILIANA, VFF, blinks to threat, sensation intact, face symmetric on smile palate upgoing uvula midline scm/trap intact tongue midline Motor: left arm contracted with spasticity limited movement 2/5, LLE 3/5 lifts anti-gravity with drift right arm and leg full strength Sensory: intact throughout Coordination: mild ataxia on right FTN, unable to perform on left due to residual weakness Results Result Diagram: 10/23/16 0538 10/23/16 0538 Results 24 hrs Laboratory Tests Test 10/22/16 22:30 10/23/16 05:38 10/23/16 09:20 10/23/16 14:01 Activated Partial Thromboplast Time 45.6 H Anion Gap 16 15 Basophils # 0.0 0.0 Basophils % 0.1 1.3 Blood Morphology Comment Blood Urea Nitrogen 18 22 H Calcium Level 9.4 9.5 Carbon Dioxide Level 33 H 31 Chloride Level 91 L 94 L Creatinine 2.84 H 3.56 H Eosinophils # 0.0 0.0 Eosinophils % 1.5 1.2 Glucose Level 99 78 Hematocrit 32.4 L 33.4 L Hemoglobin 10.8 L 11.1 L INR International Normalized Ratio 1.10 Lymphocytes # 0.3 L 0.3 L Lymphocytes % 8.1 L 12.2 L Mean Corpuscular Hemoglobin 30.7 31.1 Mean Corpuscular Hemoglobin Concent 33.2 33.4 Mean Corpuscular Volume 92.4 93.2 Mean Platelet Volume 7.3 L 7.4 Monocytes # 0.5 0.4 Monocytes % 14.5 H 14.6 H Neutrophils # 2.5 2.0 Neutrophils % 75.8 70.7 Nucleated Red Blood Cells # 0.0 0.0 Nucleated Red Blood Cells % 0.0 0.0 Platelet Count 163 154 Potassium Level 3.7 4.0 Prothrombin Time 14.2 Prothrombin Time Ratio 1.1 Red Blood Count 3.51 L 3.58 L Red Cell Distribution Width 15.4 H 15.7 H Sodium Level 136 136 Troponin I 0.570 *H 0.641 *H White Blood Count 3.3 L 2.9 L Alanine Aminotransferase (ALT/SGPT) 42 Albumin 3.7 Alkaline Phosphatase 64 Aspartate Amino Transf (AST/SGOT) 33 Cholesterol Level 95 L Cholesterol/HDL Ratio 1.8 Direct Bilirubin 0.00 Folate > 20.0 H HDL Cholesterol 51 Indirect Bilirubin 0.1 Iron Level 167 H LDL Cholesterol, Calculated 34 Magnesium Level 2.2 Percent Iron Saturation 85 H Phosphorus Level 3.3 Thyroid Stimulating Hormone (TSH) 4.390 Total Bilirubin 0.1 L Total Iron Binding Capacity 197 L Total Protein 6.2 Triglycerides Level 50 Creatine Kinase 145 Creatine Kinase Index 3.5 Creatinine Kinase MB (Mass) 5.07 H Bedside Glucose 79 Medications Medications Current Medications Amantadine HCl (Symmetrel) 100 mg DAILY PO Last administered on 10/23/16 13: 58; Admin Dose 100 MG; Start 10/23/16 at 09:00 Cholecalciferol (Vitamin D) 800 units QHS PO ; Start 10/23/16 at 21:00 Docusate Sodium (Colace) 100 mg DAILY PO Last administered on 10/23/16 09:36 ; Admin Dose 100 MG; Start 10/23/16 at 09:00 Folic Acid (Folic Acid) 1 mg DAILY PO Last administered on 10/23/16 09:36; Admin Dose 1 MG; Start 10/23/16 at 09:00 Multivit/Ca Carb/ B Cmplx/FA/Prenat (Germaine-Nae) 1 tab DAILY PO Last administered on 10/23/16 09:36; Admin Dose 1 TAB; Start 10/23/16 at 09:00 Nifedipine (Procardia Xl) 60 mg DAILY PO Last administered on 10/23/16 09:35 ; Admin Dose 60 MG; Start 10/23/16 at 09:00 Paroxetine HCl (Paxil) 10 mg DAILY PO Last administered on 10/23/16 09:36; Admin Dose 10 MG; Start 10/23/16 at 09:00 Pyridoxine HCl (Vitamin B6) 100 mg DAILY PO Last administered on 10/23/16 09: 34; Admin Dose 100 MG; Start 10/23/16 at 09:00 Ranitidine HCl (Zantac) 150 mg BID PO Last administered on 10/23/16 09:35; Admin Dose 150 MG; Start 10/23/16 at 09:00 Tramadol HCl (Ultram) 50 mg Q8H PRN PO PRN; Start 10/23/16 at 02:00 Aspirin (Aspirin) 325 mg DAILY PO Last administered on 10/23/16 09:32; Admin Dose 325 MG; Start 10/23/16 at 09:00 Heparin Sodium (Porcine) (Heparin (5000 Units/0.5 ml)) 5,000 unit BID SC ; Start 10/23/16 at 02:30 Atorvastatin Calcium (Lipitor) 40 mg DAILY PO Last administered on 10/23/16 09:33; Admin Dose 40 MG; Start 10/23/16 at 09:00 COSMO CROWE MD Oct 23, 2016 15:39
--- NOTE | 2016-10-23 18:45 | QN ---
Documentation Comment [id number] DEEPAK BERGER MD Oct 23, 2016 18:45
--- NOTE | 2016-10-23 19:27 | CONS ---
DATE OF ADMISSION: 10/23/2016 DATE OF CONSULTATION: TYPE OF CONSULTATION: Nephrology consultation. Thank you, Dr. Ceci Freedman, and [place], for kindly asking me to see this patient in consul tation. HISTORY OF PRESENT ILLNESS: The patient is a 46-year-old male who has a history of ESRD, hypertensi on, history of aphasia, history of CVA, history of AV fistula in left upper extremity, history of G- tube placement and removal, who was sent in from the dialysis center by me because the patient was n ot feeling good, complaining of dizziness, and has uncontrolled hypertension. There was a question about patient not taking his medication and losing weight and having also some malnutrition because of not eating due to his stroke history. The patient, in the ER, was seen. The patient's blood pre ssure earlier was recorded as 153/92. The patient's brain MRI scan was done, shows somewhat limited evaluation due to motion without acute intracranial pathology. Findings compatible with chronic he morrhage centered in the right thalamus extending into the right sanford radiata, also seen are chron ic microhemorrhages in the left randall, chronic right frontal lacunar infarctions, mild to moderate vo lume loss. Also noted findings of some ____ external ventricular drainage. A carotid duplex scan d one shows no evidence for hemodynamically significant carotid artery stenosis. Brain CT scan shows acute appearing nonhemorrhagic right thalami capsular junction ischemic infarction, anterior to utility bill collector micah infarction in the same location, moderate chronic microvascular ischemic changes. Chest x-ray s hows no acute cardiopulmonary process. The patient's WBC 3.3, hematocrit 32.4, platelet count of 16 3. Sodium 132, potassium 4.1, BUN of 22, creatinine 3.56. The patient's troponin 0.570. Patient i s being admitted. The patient did have dialysis yesterday. 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 The patient has left-sided weakness, AV fistula in the left upper extremit y, history of anemia, history of G-tube placement and removal. ALLERGY HISTORY: NEGATIVE. FAMILY HISTORY: Negative at this point. SOCIAL HISTORY: Negative per patient. MEDICATION HISTORY: Includes the patient is on: 1. Amantadine. 2. Vitamin D. 3. Docusate sodium. 4. Folic acid. 5. Multiple vitamin. 6. Nifedipine. 7. Paxil. 8. Pyridoxine. 9. Ranitidine. 10. Renagel. 11. Ultram. CURRENT MEDICATIONS: The patient is on: 1. Amantadine. 2. Aspirin. 3. Lipitor. 4. Cholecalciferol. 5. Docusate sodium. 6. Folic acid. 7. Heparin subcutaneous. 8. The patient is on Paxil. 9. Pyridoxine. 10. Ranitidine. 11. Renvela. 12. Tramadol. REVIEW OF SYSTEMS: Limited because patient is aphasic for the examination. PHYSICAL EXAMINATION: GENERAL: The patient is awake, alert, aphasic, no change. VITAL SIGNS: Pulse 70, blood pressure 150/106. HEENT: Head is atraumatic, normocephalic. Pupils equal, reactive. NECK: Supple. LUNGS: Clear. CARDIOVASCULAR: S1, S2 is normal. Systolic murmur noted. ABDOMEN: Soft, nontender. Bowel sounds positive. No palpable mass or hepatosplenomegaly. EXTREMITIES: No cyanosis, clubbing, or edema. CENTRAL NERVOUS SYSTEM: The patient is awake, alert with hemiplegia noted. IMPRESSION: 1. The patient has uncontrolled hypertension. 2. Old cerebrovascular accident. 3. History of dysphagia and G-tube placement and removal, now patient is on diet at home. 4. The patient has positive troponin. 5. The patient has anemia. 6. Incomplete database. 7. Neutropenia. 8. The patient is status post hypercalcemia, but now he is hypocalcemic. PLAN: At this point is to continue to monitor. Continue to monitor blood pressure. The patient is on nifedipine. The patient will have hemodialysis done. The patient's electrolytes will be monito red. Thank you, Dr. Freedman, for kindly asking me to see this patient in nephrology consultation. Dictated By: DEEPAK BERGER MD BS/NTS Conf#: [id number] DID#: [id number] CC: KIA FREEDMAN MD; [place] CONSUMER CREDIT COUNSELOR;*EndCC*
[2016-10-23] MEDS: CHOLECALCIFEROL 400 UNITS TAB PO SCH (20:39)
[2016-10-24] VITALS (15 sets, daily range): BP systolic 127–169; BP diastolic 77–128; PULSE 60–88; RESP 16–21
[2016-10-24] MEDS: morphine 2 MG INJ IV PRN (01:00)
[2016-10-24] MEDS ORDERED: LORAZEPAM 2 MG INJ IV ONE (05:00)
[2016-10-24] MEDS: SEVELAMER 800 MG TAB PO SCH ×3 (07:53→17:55)
[2016-10-24 08:20] LABS: ALBUMIN 3.8 g/dl (3.3-4.9); POTASSIUM 4.1 mmol/L (3.5-5.1)
[2016-10-24 08:21] LABS: BASOPHILS % 0.8 % (0.0-2.0); EOSINOPHILS % 1.3 % (0.0-7.0); HEMATOCRIT 33.5 % (42.0-52.0); HEMOGLOBIN 11.1 g/dl (14.0-18.0); LYMPHOCYTES # 0.4 10^3/ul (0.8-2.9); LYMPHOCYTES % 11.7 % (15.0-51.0); MEAN CORPUSCULAR HEMOGLOBIN 30.9 pg (29.0-33.0); MEAN CORPUSCULAR VOLUME 93.5 fl (82.0-101.0); MEAN PLATELET VOLUME 7.7 fl (7.4-10.4); MONOCYTE # 0.5 10^3/ul (0.3-0.9); MONOCYTES % 13.8 % (0.0-11.0); NEUTROPHIL # 2.4 10^3/ul (1.6-7.5); NEUTROPHILS % 72.4 % (39.0-77.0); PLATELET COUNT 164 10^3/UL (140-440); RED BLOOD COUNT 3.58 10^6/ul (4.70-6.10); RED CELL DISTRIBUTION WIDTH 15.1 % (11.5-14.5); UNCORRECTED WBC 3.4 10^3/ul (4.8-10.8); WHITE BLOOD COUNT 3.4 10^3/ul (4.8-10.8)
[2016-10-24 08:22] LABS: CREATININE 3.32 mg/dl (0.61-1.24)
[2016-10-24 08:23] LABS: CALCIUM 10.2 mg/dl (8.4-10.2); PHOSPHORUS 3.4 mg/dl (2.5-4.9)
[2016-10-24 08:25] LABS: CONDITION 1; LH ANALYZER COMMENTS 1
[2016-10-24] MEDS: DOCUSATE SODIUM 100 MG CAP PO SCH (11:51)
[2016-10-24] MEDS: RANITIDINE 150 MG TAB PO SCH ×2 (11:51→23:32)
[2016-10-24] MEDS: PAROXETINE 10 MG TAB PO SCH (11:51)
[2016-10-24] MEDS: FOLIC ACID 1 MG TAB PO SCH (11:51)
[2016-10-24] MEDS: ATORVASTATIN 40 MG TAB PO SCH (11:51)
[2016-10-24] MEDS: MULTIVIT/CA CARB/B CMPLX/FA TAB PO SCH (11:51)
[2016-10-24] MEDS: ASPIRIN 325 MG TAB PO SCH (11:51)
[2016-10-24] MEDS: PYRIDOXINE 50 MG TAB PO SCH (11:52)
[2016-10-24] MEDS: AMANTADINE 100 MG CAP PO SCH (11:52)
[2016-10-24] MEDS: NIFEdipine (XL) 60 MG TAB PO SCH (11:52)
[2016-10-24] MEDS: HEPARIN 5,000 UNIT/0.5 ML SYG SC SCH (11:54)
--- NOTE | 2016-10-24 13:19 | PN ---
Date/Time of Note Date/Time of Note DATE: 10/24/16 TIME: 13:16 Assessment/Plan VTE Prophylaxis VTE Prophylaxis Intervention: SCD's Lines/Catheters [facility] [place] [facility] Urinary Cath still in place: No Assessment/Plan Assessment/Plan 1. Dizziness and syncope suspect secondary to acute CVA. Continue antiplatelet therapy as well as statin medication. Neurologist consulted. We'll follow-up with recommendations. Of note patient did have MRI of the brain on 10/15/2016 that did show findings compatible with chronic hemorrhage centered in the right thalamus extending into the right sanford radiata. There is also seen chronic right frontal lacunar infarct. - Will repeat head imaging - will hold subq heparin 2. Non-ST elevated microinfarction. Pathology Collector following. Follow-up with recommendations. Of note patient does have end-stage renal disease on dialysis 3. Essential hypertension. Continue on anti-hypertensives and adjust as needed. 4. End-stage renal disease. Continue on dialysis. Monitor renal panel. 5. 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 We'll get physical therapist to follow. 6. Anemia of chronic disease. H&H remained stable. We'll monitor. 7. History of major depression. Continue on Paxil 8. History of dyslipidemia. Continue on statin medication Subjective 24 Hr Interval Summary Free Text/Dictation no acute distress. pt not fully oriented. cachectic Exam/Review of Systems Vital Signs Vitals Vital Signs Date Time Temp Pulse Resp B/P Pulse Ox O2 Delivery O2 Flow Rate FiO2 10/24/16 12:03 98.3 110 18 169/103 95 10/24/16 04:00 Nasal Cannula 2.0 Intake and Output 10/23/16 10/23/16 10/24/16 14:59 22:59 06:59 Intake Total 550 ml 0 ml Output Total 2500 ml Balance -1950 ml 0 ml Exam General: No acute signs or symptoms of distress Eyes: pupils equal round, Anicteric sclera Neck: Supple nontender, no JVD Cardiac: S1, S2 auscultated, regular rhythm and rate Pulmonary: No coarse rhonchi or breathing auscultated GI: Abdomen soft nontender nondistended, bowel sounds active Extremities: No edema bilateral lower extremities Skin: Clean dry and intact Neurologic: [Noted with some left-sided weakness Results Result Diagram: 10/24/16 0722 10/24/16 0722 Results 24 hrs Laboratory Tests Test 10/23/16 14:01 10/24/16 07:22 Bedside Glucose 79 Albumin 3.8 Anion Gap 17 H Basophils # 0.0 Basophils % 0.8 Blood Morphology Comment Blood Urea Nitrogen 19 Calcium Level 10.2 Carbon Dioxide Level 31 Chloride Level 97 Creatinine 3.32 H Eosinophils # 0.0 Eosinophils % 1.3 Glucose Level 70 Hematocrit 33.5 L Hemoglobin 11.1 L Lymphocytes # 0.4 L Lymphocytes % 11.7 L Mean Corpuscular Hemoglobin 30.9 Mean Corpuscular Hemoglobin Concent 33.0 Mean Corpuscular Volume 93.5 Mean Platelet Volume 7.7 Monocytes # 0.5 Monocytes % 13.8 H Neutrophils # 2.4 Neutrophils % 72.4 Nucleated Red Blood Cells # 0.0 Nucleated Red Blood Cells % 0.0 Phosphorus Level 3.4 Platelet Count 164 Potassium Level 4.1 Red Blood Count 3.58 L Red Cell Distribution Width 15.1 H Sodium Level 141 White Blood Count 3.4 L Medications Medications Current Medications Amantadine HCl (Symmetrel) 100 mg DAILY PO Last administered on 10/24/16 11: 52; Admin Dose 100 MG; Start 10/23/16 at 09:00 Cholecalciferol (Vitamin D) 800 units QHS PO Last administered on 10/23/16 20 :39; Admin Dose 800 UNITS; Start 10/23/16 at 21:00 Docusate Sodium (Colace) 100 mg DAILY PO Last administered on 10/24/16 11:51 ; Admin Dose 100 MG; Start 10/23/16 at 09:00 Folic Acid (Folic Acid) 1 mg DAILY PO Last administered on 10/24/16 11:51; Admin Dose 1 MG; Start 10/23/16 at 09:00 Multivit/Ca Carb/ B Cmplx/FA/Prenat (Germaine-Nae) 1 tab DAILY PO Last administered on 10/24/16 11:51; Admin Dose 1 TAB; Start 10/23/16 at 09:00 Nifedipine (Procardia Xl) 60 mg DAILY PO Last administered on 10/24/16 11:52 ; Admin Dose 60 MG; Start 10/23/16 at 09:00 Paroxetine HCl (Paxil) 10 mg DAILY PO Last administered on 10/24/16 11:51; Admin Dose 10 MG; Start 10/23/16 at 09:00 Pyridoxine HCl (Vitamin B6) 100 mg DAILY PO Last administered on 10/24/16 11: 52; Admin Dose 100 MG; Start 10/23/16 at 09:00 Ranitidine HCl (Zantac) 150 mg BID PO Last administered on 10/24/16 11:51; Admin Dose 150 MG; Start 10/23/16 at 09:00 Tramadol HCl (Ultram) 50 mg Q8H PRN PO PRN; Start 10/23/16 at 02:00 Aspirin (Aspirin) 325 mg DAILY PO Last administered on 10/24/16 11:51; Admin Dose 325 MG; Start 10/23/16 at 09:00 Heparin Sodium (Porcine) (Heparin (5000 Units/0.5 ml)) 5,000 unit BID SC Last administered on 10/24/16 11:54; Admin Dose 5,000 UNIT; Start 10/23/16 at 02: 30 Atorvastatin Calcium (Lipitor) 40 mg DAILY PO Last administered on 10/24/16 11:51; Admin Dose 40 MG; Start 10/23/16 at 09:00 Morphine Sulfate (morphine) 2 mg Q4H PRN IV PAIN Last administered on 01:00; Admin Dose 2 MG; Start 10/24/16 at 01:00 ROGERIO SOUZA MD Oct 24, 2016 13:19
--- NOTE | 2016-10-24 16:30 | CONS ---
Date/Time of Note Date/Time of Note DATE: 10/24/16 TIME: 16:28 Consult Date/Type/Reason Admit Date/Time Oct 23, 2016 at 14:38 Initial Consult Date 10/23/16 Type of Consultation: eval for stroke Reason for Consultation evaluate for stroke Ordering Provider: KIA FREEDMAN Subjective patient complains of generalized weakness denies headache, no focal weakness reported, no new speech issues Objective Vital Signs Date Time Temp Pulse Resp B/P Pulse Ox O2 Delivery O2 Flow Rate FiO2 10/24/16 15:40 98.3 76 18 127/77 95 10/24/16 04:00 Nasal Cannula 2.0 Intake and Output 10/23/16 10/23/16 10/24/16 15:00 23:00 07:00 Intake Total 550 ml 0 ml Output Total 2500 ml Balance -1950 ml 0 ml awake and alert no acute distress appears older than stated age, thin oriented x3 appears comfortable speech is mildly dysarthric, but fluent with no aphasia CN: LILIANA, VFF, blinks to threat, sensation intact, face symmetric on smile palate upgoing uvula midline scm/trap intact tongue midline Motor: left arm contracted with spasticity limited movement 2/5, LLE 3/5 lifts anti-gravity with drift right arm and leg full strength Sensory: intact throughout Coordination: mild ataxia on right FTN, unable to perform on left due to residual weakness Results/Medications Result Diagram: 10/24/1622 10/24/1622 Results 24 hrs Laboratory Tests Test 10/24/16 07:22 Albumin 3.8 Anion Gap 17 H Basophils # 0.0 Basophils % 0.8 Blood Morphology Comment Blood Urea Nitrogen 19 Calcium Level 10.2 Carbon Dioxide Level 31 Chloride Level 97 Creatinine 3.32 H Eosinophils # 0.0 Eosinophils % 1.3 Glucose Level 70 Hematocrit 33.5 L Hemoglobin 11.1 L Lymphocytes # 0.4 L Lymphocytes % 11.7 L Mean Corpuscular Hemoglobin 30.9 Mean Corpuscular Hemoglobin Concent 33.0 Mean Corpuscular Volume 93.5 Mean Platelet Volume 7.7 Monocytes # 0.5 Monocytes % 13.8 H Neutrophils # 2.4 Neutrophils % 72.4 Nucleated Red Blood Cells # 0.0 Nucleated Red Blood Cells % 0.0 Phosphorus Level 3.4 Platelet Count 164 Potassium Level 4.1 Red Blood Count 3.58 L Red Cell Distribution Width 15.1 H Sodium Level 141 White Blood Count 3.4 L Medications Current Medications Amantadine HCl (Symmetrel) 100 mg DAILY PO Last administered on 10/24/16 11: 52; Admin Dose 100 MG; Start 10/23/16 at 09:00 Cholecalciferol (Vitamin D) 800 units QHS PO Last administered on 10/23/16 20 :39; Admin Dose 800 UNITS; Start 10/23/16 at 21:00 Docusate Sodium (Colace) 100 mg DAILY PO Last administered on 10/24/16 11:51 ; Admin Dose 100 MG; Start 10/23/16 at 09:00 Folic Acid (Folic Acid) 1 mg DAILY PO Last administered on 10/24/16 11:51; Admin Dose 1 MG; Start 10/23/16 at 09:00 Multivit/Ca Carb/ B Cmplx/FA/Prenat (Germaine-Nae) 1 tab DAILY PO Last administered on 10/24/16 11:51; Admin Dose 1 TAB; Start 10/23/16 at 09:00 Nifedipine (Procardia Xl) 60 mg DAILY PO Last administered on 10/24/16 11:52 ; Admin Dose 60 MG; Start 10/23/16 at 09:00 Paroxetine HCl (Paxil) 10 mg DAILY PO Last administered on 10/24/16 11:51; Admin Dose 10 MG; Start 10/23/16 at 09:00 Pyridoxine HCl (Vitamin B6) 100 mg DAILY PO Last administered on 10/24/16 11: 52; Admin Dose 100 MG; Start 10/23/16 at 09:00 Ranitidine HCl (Zantac) 150 mg BID PO Last administered on 10/24/16 11:51; Admin Dose 150 MG; Start 10/23/16 at 09:00 Tramadol HCl (Ultram) 50 mg Q8H PRN PO PRN; Start 10/23/16 at 02:00 Aspirin (Aspirin) 325 mg DAILY PO Last administered on 10/24/16 11:51; Admin Dose 325 MG; Start 10/23/16 at 09:00 Atorvastatin Calcium (Lipitor) 40 mg DAILY PO Last administered on 10/24/16 11:51; Admin Dose 40 MG; Start 10/23/16 at 09:00 Morphine Sulfate (morphine) 2 mg Q4H PRN IV PAIN Last administered on at 01:00; Admin Dose 2 MG; Start 10/24/16 at 01:00 Assessment/Plan Chief Complaint/Hosp Course 46 year old M ESRD, HTN, previous CVA with hemorrhagic component likely secondary to advanced small vessel disease and uncontrolled hypertension. likely hypertensive emergency -MRI Brain reviewed, carotid duplex wnl -MRA Head without contrast ordered for further evaluation for large vessel stenosis, currently pending -may continue on antiplatelet therapy with Aspirin -maintain BP<140/90 -LDL: 34 continue on current dose of statin -check HBA1C -PT/OT/Speech evaluation -will continue to follow Problems: COSMO CROWE MD Oct 24, 2016 16:30
--- NOTE | 2016-10-24 17:02 | CONS ---
Date/Time of Note Date/Time of Note DATE: 10/24/16 TIME: 17:00 Assessment/Plan Assessment/Plan Chief Complaint/Hosp Course IMPRESSION: A 46-year-old unfortunate male with the followin. HTN 2. [id number] myocardial infarction. 3. 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 4. 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 End-stage renal disease, on hemodialysis. 6. Chronic debility from previous cerebrovascular accident. 7. Anemia of chronic kidney disease with associated leukopenia. 8. Chronic depression. PLAN HD Problems: Consultation Date/Type/Reason Admit Date/Time Oct 23, 2016 at 14:38 Initial Consult Date 10/23/16 Type of Consultation: RENAL Referring Provider: KIA FREEDMAN Exam/Review of Systems Vital Signs Vitals Vital Signs Date Time Temp Pulse Resp B/P Pulse Ox O2 Delivery O2 Flow Rate FiO2 10/24/16 16:43 88 10/24/16 15:40 98.3 18 127/77 95 10/24/16 04:00 Nasal Cannula 2.0 Intake and Output 10/23/16 10/23/16 10/24/16 14:59 22:59 06:59 Intake Total 550 ml 0 ml Output Total 2500 ml Balance -1950 ml 0 ml Exam Neck: supple Respiratory: diminished breath sounds Cardiovascular: regular rate and rhythm Gastrointestinal: soft Musculoskeletal: nl extremities to inspection Extremities: normal pulses Results Result Diagram: 10/24/16 0722 10/24/16 0722 Results 24 hrs Laboratory Tests Test 10/24/16 07:22 Albumin 3.8 Anion Gap 17 H Basophils # 0.0 Basophils % 0.8 Blood Morphology Comment Blood Urea Nitrogen 19 Calcium Level 10.2 Carbon Dioxide Level 31 Chloride Level 97 Creatinine 3.32 H Eosinophils # 0.0 Eosinophils % 1.3 Glucose Level 70 Hematocrit 33.5 L Hemoglobin 11.1 L Lymphocytes # 0.4 L Lymphocytes % 11.7 L Mean Corpuscular Hemoglobin 30.9 Mean Corpuscular Hemoglobin Concent 33.0 Mean Corpuscular Volume 93.5 Mean Platelet Volume 7.7 Monocytes # 0.5 Monocytes % 13.8 H Neutrophils # 2.4 Neutrophils % 72.4 Nucleated Red Blood Cells # 0.0 Nucleated Red Blood Cells % 0.0 Phosphorus Level 3.4 Platelet Count 164 Potassium Level 4.1 Red Blood Count 3.58 L Red Cell Distribution Width 15.1 H Sodium Level 141 White Blood Count 3.4 L Medications Medications Current Medications Amantadine HCl (Symmetrel) 100 mg DAILY PO Last administered on 10/24/16 11: 52; Admin Dose 100 MG; Start 10/23/16 at 09:00 Cholecalciferol (Vitamin D) 800 units QHS PO Last administered on 10/23/16 20 :39; Admin Dose 800 UNITS; Start 10/23/16 at 21:00 Docusate Sodium (Colace) 100 mg DAILY PO Last administered on 10/24/16 11:51 ; Admin Dose 100 MG; Start 10/23/16 at 09:00 Folic Acid (Folic Acid) 1 mg DAILY PO Last administered on 10/24/16 11:51; Admin Dose 1 MG; Start 10/23/16 at 09:00 Multivit/Ca Carb/ B Cmplx/FA/Prenat (Germaine-Nae) 1 tab DAILY PO Last administered on 10/24/16 11:51; Admin Dose 1 TAB; Start 10/23/16 at 09:00 Nifedipine (Procardia Xl) 60 mg DAILY PO Last administered on 10/24/16 11:52 ; Admin Dose 60 MG; Start 10/23/16 at 09:00 Paroxetine HCl (Paxil) 10 mg DAILY PO Last administered on 10/24/16 11:51; Admin Dose 10 MG; Start 10/23/16 at 09:00 Pyridoxine HCl (Vitamin B6) 100 mg DAILY PO Last administered on 10/24/16 11: 52; Admin Dose 100 MG; Start 10/23/16 at 09:00 Ranitidine HCl (Zantac) 150 mg BID PO Last administered on 10/24/16 11:51; Admin Dose 150 MG; Start 10/23/16 at 09:00 Tramadol HCl (Ultram) 50 mg Q8H PRN PO PRN; Start 10/23/16 at 02:00 Aspirin (Aspirin) 325 mg DAILY PO Last administered on 10/24/16 11:51; Admin Dose 325 MG; Start 10/23/16 at 09:00 Atorvastatin Calcium (Lipitor) 40 mg DAILY PO Last administered on 10/24/16 11:51; Admin Dose 40 MG; Start 10/23/16 at 09:00 Morphine Sulfate (morphine) 2 mg Q4H PRN IV PAIN Last administered on at 01:00; Admin Dose 2 MG; Start 10/24/16 at 01:00 DEEPAK BERGER MD Oct 24, 2016 17:02
--- NOTE | 2016-10-24 23:06 | CONS ---
Date/Time of Note Date/Time of Note DATE: 10/24/16 TIME: 23:02 Assessment/Plan Assessment/Plan Additional Assessment/Plan Elevated troponin Hypertension End-stage renal disease on hemodialysis History of CVA with possible acute CVA Low normal EF 50% -pt feeling better, BP trend slightly elevated, will add ROMAN-I, decrease asa to 81mg if no contraindication. Consultation Date/Type/Reason Admit Date/Time Oct 23, 2016 at 14:38 Initial Consult Date 10/23/16 Type of Consultation: cv Referring Provider: KIA FREEDMAN 24 HR Interval Summary Free Text/Dictation denies sob, cp Exam/Review of Systems Vital Signs Vitals Vital Signs Date Time Temp Pulse Resp B/P Pulse Ox O2 Delivery O2 Flow Rate FiO2 10/24/16 20:43 70 10/24/16 19:12 98.7 16 138/82 98 10/24/16 04:00 Nasal Cannula 2.0 Intake and Output 10/23/16 10/23/16 10/24/16 15:00 23:00 07:00 Intake Total 550 ml 0 ml Output Total 2500 ml Balance -1950 ml 0 ml Exam nad Constitutional: alert, oriented Head: normocephalic Respiratory: other (course bs, no wheeze) Cardiovascular: other (s1s2), regular rate and rhythm Gastrointestinal: bowel sounds, non-tender, soft Extremities: edema (trace) Results Result Diagram: 10/24/16 0722 10/24/16 0722 Results 24 hrs Laboratory Tests Test 10/24/16 07:22 Albumin 3.8 Anion Gap 17 H Basophils # 0.0 Basophils % 0.8 Blood Morphology Comment Blood Urea Nitrogen 19 Calcium Level 10.2 Carbon Dioxide Level 31 Chloride Level 97 Creatinine 3.32 H Eosinophils # 0.0 Eosinophils % 1.3 Glucose Level 70 Hematocrit 33.5 L Hemoglobin 11.1 L Lymphocytes # 0.4 L Lymphocytes % 11.7 L Mean Corpuscular Hemoglobin 30.9 Mean Corpuscular Hemoglobin Concent 33.0 Mean Corpuscular Volume 93.5 Mean Platelet Volume 7.7 Monocytes # 0.5 Monocytes % 13.8 H Neutrophils # 2.4 Neutrophils % 72.4 Nucleated Red Blood Cells # 0.0 Nucleated Red Blood Cells % 0.0 Phosphorus Level 3.4 Platelet Count 164 Potassium Level 4.1 Red Blood Count 3.58 L Red Cell Distribution Width 15.1 H Sodium Level 141 White Blood Count 3.4 L Medications Medications Current Medications Amantadine HCl (Symmetrel) 100 mg DAILY PO Last administered on 10/24/16 11: 52; Admin Dose 100 MG; Start 10/23/16 at 09:00 Cholecalciferol (Vitamin D) 800 units QHS PO Last administered on 10/23/16 20 :39; Admin Dose 800 UNITS; Start 10/23/16 at 21:00 Docusate Sodium (Colace) 100 mg DAILY PO Last administered on 10/24/16 11:51 ; Admin Dose 100 MG; Start 10/23/16 at 09:00 Folic Acid (Folic Acid) 1 mg DAILY PO Last administered on 10/24/16 11:51; Admin Dose 1 MG; Start 10/23/16 at 09:00 Multivit/Ca Carb/ B Cmplx/FA/Prenat (Germaine-Nae) 1 tab DAILY PO Last administered on 10/24/16 11:51; Admin Dose 1 TAB; Start 10/23/16 at 09:00 Nifedipine (Procardia Xl) 60 mg DAILY PO Last administered on 10/24/16 11:52 ; Admin Dose 60 MG; Start 10/23/16 at 09:00 Paroxetine HCl (Paxil) 10 mg DAILY PO Last administered on 10/24/16 11:51; Admin Dose 10 MG; Start 10/23/16 at 09:00 Pyridoxine HCl (Vitamin B6) 100 mg DAILY PO Last administered on 10/24/16 11: 52; Admin Dose 100 MG; Start 10/23/16 at 09:00 Ranitidine HCl (Zantac) 150 mg BID PO Last administered on 10/24/16 11:51; Admin Dose 150 MG; Start 10/23/16 at 09:00 Tramadol HCl (Ultram) 50 mg Q8H PRN PO PRN; Start 10/23/16 at 02:00 Aspirin (Aspirin) 325 mg DAILY PO Last administered on 10/24/16 11:51; Admin Dose 325 MG; Start 10/23/16 at 09:00 Atorvastatin Calcium (Lipitor) 40 mg DAILY PO Last administered on 10/24/16 11:51; Admin Dose 40 MG; Start 10/23/16 at 09:00 Morphine Sulfate (morphine) 2 mg Q4H PRN IV PAIN Last administered on at 01:00; Admin Dose 2 MG; Start 10/24/16 at 01:00 Abdulaziz Ny DO Oct 24, 2016 23:06
[2016-10-24] MEDS: CHOLECALCIFEROL 400 UNITS TAB PO SCH (23:32)
[2016-10-25] VITALS (20 sets, daily range): BP systolic 115–182; BP diastolic 72–104; PULSE 63–108; RESP 16–18
[2016-10-25] MEDS: hydrALAzine 20 MG INJ IV PRN ×2 (00:35→06:38)
[2016-10-25 06:39] LABS: BASOPHILS % 0.3 % (0.0-2.0); EOSINOPHILS % 1.2 % (0.0-7.0); HEMATOCRIT 34.6 % (42.0-52.0); HEMOGLOBIN 11.6 g/dl (14.0-18.0); LYMPHOCYTES # 0.4 10^3/ul (0.8-2.9); LYMPHOCYTES % 11.4 % (15.0-51.0); MEAN CORPUSCULAR HEMOGLOBIN 31.1 pg (29.0-33.0); MEAN CORPUSCULAR HGB CONC 33.5 g/dl (32.0-37.0); MEAN PLATELET VOLUME 7.7 fl (7.4-10.4); MONOCYTE # 0.7 10^3/ul (0.3-0.9); MONOCYTES % 17.8 % (0.0-11.0); NEUTROPHIL # 2.6 10^3/ul (1.6-7.5); NEUTROPHILS % 69.3 % (39.0-77.0); PLATELET COUNT 163 10^3/UL (140-440); RED BLOOD COUNT 3.72 10^6/ul (4.70-6.10); RED CELL DISTRIBUTION WIDTH 14.8 % (11.5-14.5); UNCORRECTED WBC 3.8 10^3/ul (4.8-10.8); WHITE BLOOD COUNT 3.8 10^3/ul (4.8-10.8)
[2016-10-25 06:47] LABS: CONDITION 1; LH ANALYZER COMMENTS 1
[2016-10-25 07:07] LABS: POTASSIUM 4.2 mmol/L (3.5-5.1)
[2016-10-25 07:10] LABS: CALCIUM 10.9 mg/dl (8.4-10.2); CREATININE 5.47 mg/dl (0.61-1.24); PHOSPHORUS 3.5 mg/dl (2.5-4.9)
--- NOTE | 2016-10-25 08:17 | RADRPT ---
PROCEDURE: MRA Head without contrast. CLINICAL INDICATION: Neurologic deficit TECHNIQUE: MRA of the brain was performed utilizing 3-D [id number] imaging without intravenous contrast. Source and MIP images were reviewed. COMPARISON: Correlation brain MRI yesterday FINDINGS: No significant focal proximal stenosis or large vessel occlusion of the bilateral intracranial ICA, bilateral MCA, or bilateral NILSA. There is also no significant focal proximal stenosis or large vess el occlusion of the bilateral intradural vertebral artery segments, basilar artery, or bilateral INTAKE ASSESSOR . right INTAKE ASSESSOR noted. No aneurysm is identified. IMPRESSION: No evidence of significant stenosis or large vessel occlusion. RPTAT: AA .Konstantin Mahoney MD, MD Date Time Electronically viewed and signed by .Konstantin Mahoney MD, on 10/25/2016 08:17 .T/
[2016-10-25] MEDS ORDERED: LISINOPRIL 5 MG TAB PO SCH (09:00)
[2016-10-25] MEDS: LISINOPRIL 5 MG TAB PO SCH ×2 (09:21→21:49)
[2016-10-25] MEDS: PAROXETINE 10 MG TAB PO SCH (09:21)
[2016-10-25] MEDS: ASPIRIN 81 MG TAB PO SCH (09:22)
[2016-10-25] MEDS: FOLIC ACID 1 MG TAB PO SCH (09:22)
[2016-10-25] MEDS: MULTIVIT/CA CARB/B CMPLX/FA TAB PO SCH (09:22)
[2016-10-25] MEDS: NIFEdipine (XL) 60 MG TAB PO SCH (09:22)
[2016-10-25] MEDS: RANITIDINE 150 MG TAB PO SCH ×2 (09:22→21:49)
[2016-10-25] MEDS: DOCUSATE SODIUM 100 MG CAP PO SCH (09:22)
[2016-10-25] MEDS: SEVELAMER 800 MG TAB PO SCH ×3 (09:22→17:59)
[2016-10-25] MEDS: AMANTADINE 100 MG CAP PO SCH (09:22)
[2016-10-25] MEDS: ATORVASTATIN 40 MG TAB PO SCH (09:22)
[2016-10-25] MEDS: PYRIDOXINE 50 MG TAB PO SCH (09:22)
--- NOTE | 2016-10-25 10:20 | CONS ---
Date/Time of Note Date/Time of Note DATE: 10/25/16 TIME: 10:17 Assessment/Plan Assessment/Plan Additional Assessment/Plan Mild Elevated troponin Hypertension End-stage renal disease on hemodialysis History of CVA with possible acute CVA Low normal EF 50% -Patient with elevated blood pressure today, ROMAN inhibitor was just started this morning, if needed, could uptitrate, otherwise continue aspirin, statin therapy. No beta kalyani secondary to bradycardia. Consultation Date/Type/Reason Admit Date/Time Oct 23, 2016 at 14:38 Initial Consult Date 10/23/16 Type of Consultation: cv Referring Provider: KIA FREEDMAN 24 HR Interval Summary Free Text/Dictation Denies shortness of breath, chest pain or palpitations Exam/Review of Systems Vital Signs Vitals Vital Signs Date Time Temp Pulse Resp B/P Pulse Ox O2 Delivery O2 Flow Rate FiO2 10/25/16 08:43 99 10/25/16 08:05 98.6 18 173/104 98 10/24/16 04:00 Nasal Cannula 2.0 Intake and Output 10/24/16 10/24/16 10/25/16 15:00 23:00 07:00 Intake Total 0 ml 360 ml 100 ml Balance 0 ml 360 ml 100 ml Exam No apparent distress Constitutional: alert, frail, oriented Head: normocephalic Neck: supple Respiratory: other (course breath sounds bilaterally, no wheezing) Cardiovascular: other (S1-S2 heard), regular rate and rhythm, systolic murmur Gastrointestinal: bowel sounds, non-tender, soft Extremities: other (no edema) Results Result Diagram: 10/25/16 0552 10/25/16 0552 Results 24 hrs Laboratory Tests Test 10/25/16 05:52 Albumin 4.0 Anion Gap 17 H Basophils # 0.0 Basophils % 0.3 Blood Morphology Comment Blood Urea Nitrogen 39 #H Calcium Level 10.9 H Carbon Dioxide Level 29 Chloride Level 98 Creatinine 5.47 #H Eosinophils # 0.0 Eosinophils % 1.2 Glucose Level 80 Hematocrit 34.6 L Hemoglobin 11.6 L Lymphocytes # 0.4 L Lymphocytes % 11.4 L Mean Corpuscular Hemoglobin 31.1 Mean Corpuscular Hemoglobin Concent 33.5 Mean Corpuscular Volume 93.0 Mean Platelet Volume 7.7 Monocytes # 0.7 Monocytes % 17.8 H Neutrophils # 2.6 Neutrophils % 69.3 Nucleated Red Blood Cells # 0.0 Nucleated Red Blood Cells % 0.0 Phosphorus Level 3.5 Platelet Count 163 Potassium Level 4.2 Red Blood Count 3.72 L Red Cell Distribution Width 14.8 H Sodium Level 140 White Blood Count 3.8 L Medications Medications Current Medications Amantadine HCl (Symmetrel) 100 mg DAILY PO Last administered on 10/25/16 09: 22; Admin Dose 100 MG; Start 10/23/16 at 09:00 Cholecalciferol (Vitamin D) 800 units QHS PO Last administered on 10/24/16 23 :32; Admin Dose 800 UNITS; Start 10/23/16 at 21:00 Docusate Sodium (Colace) 100 mg DAILY PO Last administered on 10/25/16 09:22 ; Admin Dose 100 MG; Start 10/23/16 at 09:00 Folic Acid (Folic Acid) 1 mg DAILY PO Last administered on 10/25/16 09:22; Admin Dose 1 MG; Start 10/23/16 at 09:00 Multivit/Ca Carb/ B Cmplx/FA/Prenat (Germaine-Nae) 1 tab DAILY PO Last administered on 10/25/16 09:22; Admin Dose 1 TAB; Start 10/23/16 at 09:00 Nifedipine (Procardia Xl) 60 mg DAILY PO Last administered on 10/25/16 09:22 ; Admin Dose 60 MG; Start 10/23/16 at 09:00 Paroxetine HCl (Paxil) 10 mg DAILY PO Last administered on 10/25/16 09:21; Admin Dose 10 MG; Start 10/23/16 at 09:00 Pyridoxine HCl (Vitamin B6) 100 mg DAILY PO Last administered on 10/25/16 09: 22; Admin Dose 100 MG; Start 10/23/16 at 09:00 Ranitidine HCl (Zantac) 150 mg BID PO Last administered on 10/25/16 09:22; Admin Dose 150 MG; Start 10/23/16 at 09:00 Tramadol HCl (Ultram) 50 mg Q8H PRN PO PRN; Start 10/23/16 at 02:00 Atorvastatin Calcium (Lipitor) 40 mg DAILY PO Last administered on 10/25/16 09:22; Admin Dose 40 MG; Start 10/23/16 at 09:00 Morphine Sulfate (morphine) 2 mg Q4H PRN IV PAIN Last administered on 01:00; Admin Dose 2 MG; Start 10/24/16 at 01:00 Aspirin (Aspirin) 81 mg DAILY PO Last administered on 10/25/16at 09:22; Admin Dose 81 MG; Start 10/25/16 at 09:00 Lisinopril (Zestril) 5 mg BID PO Last administered on 10/25/16at 09:21; Admin Dose 5 MG; Start 10/25/16 at 09:00 Hydralazine HCl (Apresoline) 10 mg Q6H PRN IV sbp>160mmhg Last administered on 10/25/16at 06:38; Admin Dose 10 MG; Start 10/25/16 at 00:00 Abdulaziz Ny DO Oct 25, 2016 10:20
--- NOTE | 2016-10-25 18:17 | CONS ---
Date/Time of Note Date/Time of Note DATE: 10/25/16 TIME: 18:17 Assessment/Plan Assessment/Plan Chief Complaint/Hosp Course IMPRESSION: A 46-year-old unfortunate male with the followin. HTN 2. [id number] myocardial infarction. 3. 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 End-stage renal disease, on hemodialysis. 6. Chronic debility from previous cerebrovascular accident. 7. Anemia of chronic kidney disease with associated leukopenia. 8. Chronic depression. 9 HYPERCALCEMIA PLAN HD Problems: Consultation Date/Type/Reason Admit Date/Time Oct 23, 2016 at 14:38 Initial Consult Date 10/23/16 Type of Consultation: RENAL Referring Provider: KIA FREEDMAN 24 HR Interval Summary Constitutional: no complaints Exam/Review of Systems Vital Signs Vitals Vital Signs Date Time Temp Pulse Resp B/P Pulse Ox O2 Delivery O2 Flow Rate FiO2 10/25/16 17:15 78 15 10/25/16 17:02 98.0 137/85 98 10/24/16 04:00 Nasal Cannula 2.0 Intake and Output 10/24/16 10/24/16 10/25/16 15:00 23:00 07:00 Intake Total 0 ml 360 ml 100 ml Balance 0 ml 360 ml 100 ml Exam Respiratory: clear to auscultation Cardiovascular: regular rate and rhythm Gastrointestinal: soft Musculoskeletal: nl extremities to inspection Extremities: normal pulses Results Result Diagram: 10/25/16 0552 10/25/16 0552 Results 24 hrs Laboratory Tests Test 10/25/16 05:52 Albumin 4.0 Anion Gap 17 H Basophils # 0.0 Basophils % 0.3 Blood Morphology Comment Blood Urea Nitrogen 39 #H Calcium Level 10.9 H Carbon Dioxide Level 29 Chloride Level 98 Creatinine 5.47 #H Eosinophils # 0.0 Eosinophils % 1.2 Glucose Level 80 Hematocrit 34.6 L Hemoglobin 11.6 L Lymphocytes # 0.4 L Lymphocytes % 11.4 L Mean Corpuscular Hemoglobin 31.1 Mean Corpuscular Hemoglobin Concent 33.5 Mean Corpuscular Volume 93.0 Mean Platelet Volume 7.7 Monocytes # 0.7 Monocytes % 17.8 H Neutrophils # 2.6 Neutrophils % 69.3 Nucleated Red Blood Cells # 0.0 Nucleated Red Blood Cells % 0.0 Phosphorus Level 3.5 Platelet Count 163 Potassium Level 4.2 Red Blood Count 3.72 L Red Cell Distribution Width 14.8 H Sodium Level 140 White Blood Count 3.8 L Medications Medications Current Medications Amantadine HCl (Symmetrel) 100 mg DAILY PO Last administered on 10/25/16 09: 22; Admin Dose 100 MG; Start 10/23/16 at 09:00 Cholecalciferol (Vitamin D) 800 units QHS PO Last administered on 10/24/16 23 :32; Admin Dose 800 UNITS; Start 10/23/16 at 21:00 Docusate Sodium (Colace) 100 mg DAILY PO Last administered on 10/25/16 09:22 ; Admin Dose 100 MG; Start 10/23/16 at 09:00 Folic Acid (Folic Acid) 1 mg DAILY PO Last administered on 10/25/16 09:22; Admin Dose 1 MG; Start 10/23/16 at 09:00 Multivit/Ca Carb/ B Cmplx/FA/Prenat (Germaine-Nae) 1 tab DAILY PO Last administered on 10/25/16 09:22; Admin Dose 1 TAB; Start 10/23/16 at 09:00 Nifedipine (Procardia Xl) 60 mg DAILY PO Last administered on 10/25/16 09:22 ; Admin Dose 60 MG; Start 10/23/16 at 09:00 Paroxetine HCl (Paxil) 10 mg DAILY PO Last administered on 10/25/16 09:21; Admin Dose 10 MG; Start 10/23/16 at 09:00 Pyridoxine HCl (Vitamin B6) 100 mg DAILY PO Last administered on 10/25/16 09: 22; Admin Dose 100 MG; Start 10/23/16 at 09:00 Ranitidine HCl (Zantac) 150 mg BID PO Last administered on 10/25/16 09:22; Admin Dose 150 MG; Start 10/23/16 at 09:00 Tramadol HCl (Ultram) 50 mg Q8H PRN PO PRN; Start 10/23/16 at 02:00 Atorvastatin Calcium (Lipitor) 40 mg DAILY PO Last administered on 10/25/16 09:22; Admin Dose 40 MG; Start 10/23/16 at 09:00 Morphine Sulfate (morphine) 2 mg Q4H PRN IV PAIN Last administered on 12/29/ 16at 01:00; Admin Dose 2 MG; Start 10/24/16 at 01:00 Aspirin (Aspirin) 81 mg DAILY PO Last administered on 10/25/16at 09:22; Admin Dose 81 MG; Start 10/25/16 at 09:00 Lisinopril (Zestril) 5 mg BID PO Last administered on 10/25/16at 09:21; Admin Dose 5 MG; Start 10/25/16 at 09:00 Hydralazine HCl (Apresoline) 10 mg Q6H PRN IV sbp>160mmhg Last administered on 10/25/16at 06:38; Admin Dose 10 MG; Start 10/25/16 at 00:00 DEEPAK BERGER MD Oct 25, 2016 18:17
--- NOTE | 2016-10-25 18:40 | CONS ---
Date/Time of Note Date/Time of Note DATE: 10/25/16 TIME: 18:31 Assessment/Plan Assessment/Plan Additional Assessment/Plan 46 year old M ESRD, HTN, previous CVA with hemorrhagic component likely secondary to advanced small vessel disease and uncontrolled hypertension. likely hypertensive emergency PLAN: -may continue on antiplatelet therapy with Aspirin -maintain BP<140/90 -LDL: 34 continue on current dose of statin -check HBA1C -PT/OT/Speech evaluation -will continue to follow Consultation Date/Type/Reason Admit Date/Time Oct 23, 2016 at 14:38 Initial Consult Date 10/23/16 Type of Consultation: RENAL Referring Provider: KIA FREEDMAN 24 HR Interval Summary Free Text/Dictation Doiing well, sitting in bed having dinner. Exam/Review of Systems Vital Signs Vitals Vital Signs Date Time Temp Pulse Resp B/P Pulse Ox O2 Delivery O2 Flow Rate FiO2 10/25/16 17:15 78 15 10/25/16 17:02 98.0 137/85 98 10/24/16 04:00 Nasal Cannula 2.0 Intake and Output 10/24/16 10/24/16 10/25/16 15:00 23:00 07:00 Intake Total 0 ml 360 ml 100 ml Balance 0 ml 360 ml 100 ml Exam Constitutional: alert, oriented Psych: nl mood/affect, no complaints Head: atraumatic, normocephalic Eyes: EOMI, nl conjunctiva, nl lids ENMT: nl external ears & nose, nl lips & teeth, nl nasal mucosa & septum Neck: non-tender, supple Respiratory: clear to auscultation, normal air movement Cardiovascular: nl pulses, regular rate and rhythm Gastrointestinal: nl liver, spleen, non-tender, soft Extremities: normal pulses Neurological: focal weakness, other (awake and alert) Results Result Diagram: 10/25/16 0552 10/25/16 0552 Results 24 hrs Laboratory Tests Test 10/25/16 05:52 Albumin 4.0 Anion Gap 17 H Basophils # 0.0 Basophils % 0.3 Blood Morphology Comment Blood Urea Nitrogen 39 #H Calcium Level 10.9 H Carbon Dioxide Level 29 Chloride Level 98 Creatinine 5.47 #H Eosinophils # 0.0 Eosinophils % 1.2 Glucose Level 80 Hematocrit 34.6 L Hemoglobin 11.6 L Lymphocytes # 0.4 L Lymphocytes % 11.4 L Mean Corpuscular Hemoglobin 31.1 Mean Corpuscular Hemoglobin Concent 33.5 Mean Corpuscular Volume 93.0 Mean Platelet Volume 7.7 Monocytes # 0.7 Monocytes % 17.8 H Neutrophils # 2.6 Neutrophils % 69.3 Nucleated Red Blood Cells # 0.0 Nucleated Red Blood Cells % 0.0 Phosphorus Level 3.5 Platelet Count 163 Potassium Level 4.2 Red Blood Count 3.72 L Red Cell Distribution Width 14.8 H Sodium Level 140 White Blood Count 3.8 L Medications Medications Current Medications Amantadine HCl (Symmetrel) 100 mg DAILY PO Last administered on 10/25/16 09: 22; Admin Dose 100 MG; Start 10/23/16 at 09:00 Cholecalciferol (Vitamin D) 800 units QHS PO Last administered on 10/24/16 23 :32; Admin Dose 800 UNITS; Start 10/23/16 at 21:00 Docusate Sodium (Colace) 100 mg DAILY PO Last administered on 10/25/16 09:22 ; Admin Dose 100 MG; Start 10/23/16 at 09:00 Folic Acid (Folic Acid) 1 mg DAILY PO Last administered on 10/25/16 09:22; Admin Dose 1 MG; Start 10/23/16 at 09:00 Multivit/Ca Carb/ B Cmplx/FA/Prenat (Germaine-Nae) 1 tab DAILY PO Last administered on 10/25/16 09:22; Admin Dose 1 TAB; Start 10/23/16 at 09:00 Nifedipine (Procardia Xl) 60 mg DAILY PO Last administered on 10/25/16 09:22 ; Admin Dose 60 MG; Start 10/23/16 at 09:00 Paroxetine HCl (Paxil) 10 mg DAILY PO Last administered on 10/25/16 09:21; Admin Dose 10 MG; Start 10/23/16 at 09:00 Pyridoxine HCl (Vitamin B6) 100 mg DAILY PO Last administered on 10/25/16 09: 22; Admin Dose 100 MG; Start 10/23/16 at 09:00 Ranitidine HCl (Zantac) 150 mg BID PO Last administered on 10/25/16 09:22; Admin Dose 150 MG; Start 10/23/16 at 09:00 Tramadol HCl (Ultram) 50 mg Q8H PRN PO PRN; Start 10/23/16 at 02:00 Atorvastatin Calcium (Lipitor) 40 mg DAILY PO Last administered on 10/25/16at 09:22; Admin Dose 40 MG; Start 10/23/16 at 09:00 Morphine Sulfate (morphine) 2 mg Q4H PRN IV PAIN Last administered on at 01:00; Admin Dose 2 MG; Start 10/24/16 at 01:00 Aspirin (Aspirin) 81 mg DAILY PO Last administered on 10/25/16at 09:22; Admin Dose 81 MG; Start 10/25/16 at 09:00 Lisinopril (Zestril) 5 mg BID PO Last administered on 10/25/16at 09:21; Admin Dose 5 MG; Start 10/25/16 at 09:00 Hydralazine HCl (Apresoline) 10 mg Q6H PRN IV sbp>160mmhg Last administered on 10/25/16at 06:38; Admin Dose 10 MG; Start 10/25/16 at 00:00 Procedures Procedures 10/23/16 CT brain IMPRESSION: 1. Acute appearing non hemorrhagic right thalami capsular junction ischemic infarct anterior to a chronic infarct in the same location. Recommend diffusion weighted MRI to further evaluate. 2. Moderate chronic microvascular ischemic disease 3. Mild diffuse volume loss. A call report was made to JOE Corley at 10/23/2016 12:01:58 AM following the completion of the examination by the undersigned. Additional history provided is that of a wheelchair-bound dialysis dependent diabetic patient. RPTAT: [facility] .Rnad Wolf MD, MD Date Time Electronically viewed and signed by .Rand Wolf MD, on 10/23/2016 00: 02 10/23/16 MRI of brain IMPRESSION: 1. Somewhat limited evaluation due to motion, without acute intracranial pathology identified. 2. Findings compatible with chronic hemorrhage centered in the right thalamus extending into the right sanford radiata. Also seen is suggestion of a chronic micro hemorrhage in the left randall. 3. Chronic right frontal lacunar infarct. 4. Mild to moderate volume loss, with moderate chronic small vessel ischemic changes. 5. Also noted are findings suggesting the sequela of prior left trans frontal external ventricular drainage. RPTAT: [facility] .Jose M Welsh MD, Date Time Electronically viewed and signed by .Jose M Welsh MD, MD on 10/23/2016 11:05 10/23/16 Carotid ultrasound IMPRESSION: 1. No evidence for hemodynamically significant carotid artery stenosis. 2. Normal antegrade flow in the vertebral arteries bilaterally. RPTAT: [facility] Nely Oliver, Physician Date Time Electronically viewed and signed by Nely Oliver, Physician on 10/23/2016 02 :57 10/25/16 MRA of head and neck IMPRESSION: No evidence of significant stenosis or large vessel occlusion. RPTAT: [facility] .Konstantin Mahoney MD, Date Time Electronically viewed and signed by .Konstantin Mahoney MD, MD on 10/25/2016 08:17 HARRIS DUMONT MD Oct 25, 2016 18:40
[2016-10-25] MEDS: CHOLECALCIFEROL 400 UNITS TAB PO SCH (21:49)
--- NOTE | 2016-10-25 23:41 | PN ---
Date/Time of Note Date/Time of Note DATE: 10/25/16 TIME: 23:34 Assessment/Plan VTE Prophylaxis VTE Prophylaxis Intervention: SCD's Lines/Catheters IV [facility]from [facility] Saline Lock Urinary Cath still in place: No Assessment/Plan Assessment/Plan 1. Dizziness and syncope suspect secondary to acute CVA. Continue antiplatelet therapy as well as statin medication. Neurologist consulted. We'll follow-up with recommendations. Of note patient did have MRI of the brain on 10/15/2016 that did show findings compatible with chronic hemorrhage centered in the right thalamus extending into the right sanford radiata. There is also seen chronic right frontal lacunar infarct. - MRI brain without acute findings - f/u Neurology recs 2. Non-ST elevated microinfarction. Grain Operations Manager following. Follow-up with recommendations. Of note patient does have end-stage renal disease on dialysis 3. Essential hypertension. Continue on anti-hypertensives and adjust as needed. 4. End-stage renal disease. Continue on dialysis. Monitor renal panel. 5. 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 We'll get physical therapist to follow. 6. Anemia of chronic disease. H&H remained stable. We'll monitor. 7. History of major depression. Continue on Paxil 8. History of dyslipidemia. Continue on statin medication Subjective 24 Hr Interval Summary Free Text/Dictation c/o weakness Exam/Review of Systems Vital Signs Vitals Vital Signs Date Time Temp Pulse Resp B/P Pulse Ox O2 Delivery O2 Flow Rate FiO2 10/25/16 20:57 108 10/25/16 19:41 98.4 16 133/81 98 10/24/16 04:00 Nasal Cannula 2.0 Intake and Output 10/24/16 10/24/16 10/25/16 15:00 23:00 07:00 Intake Total 0 ml 360 ml 100 ml Balance 0 ml 360 ml 100 ml Results Result Diagram: 10/25/16 0552 10/25/16 0552 Results 24 hrs Laboratory Tests Test 10/25/16 05:52 Albumin 4.0 Anion Gap 17 H Basophils # 0.0 Basophils % 0.3 Blood Morphology Comment Blood Urea Nitrogen 39 #H Calcium Level 10.9 H Carbon Dioxide Level 29 Chloride Level 98 Creatinine 5.47 #H Eosinophils # 0.0 Eosinophils % 1.2 Glucose Level 80 Hematocrit 34.6 L Hemoglobin 11.6 L Lymphocytes # 0.4 L Lymphocytes % 11.4 L Mean Corpuscular Hemoglobin 31.1 Mean Corpuscular Hemoglobin Concent 33.5 Mean Corpuscular Volume 93.0 Mean Platelet Volume 7.7 Monocytes # 0.7 Monocytes % 17.8 H Neutrophils # 2.6 Neutrophils % 69.3 Nucleated Red Blood Cells # 0.0 Nucleated Red Blood Cells % 0.0 Phosphorus Level 3.5 Platelet Count 163 Potassium Level 4.2 Red Blood Count 3.72 L Red Cell Distribution Width 14.8 H Sodium Level 140 White Blood Count 3.8 L Medications Medications Current Medications Amantadine HCl (Symmetrel) 100 mg DAILY PO Last administered on 10/25/16 09: 22; Admin Dose 100 MG; Start 10/23/16 at 09:00 Cholecalciferol (Vitamin D) 800 units QHS PO Last administered on 10/25/16 21 :49; Admin Dose 800 UNITS; Start 10/23/16 at 21:00 Docusate Sodium (Colace) 100 mg DAILY PO Last administered on 10/25/16 09:22 ; Admin Dose 100 MG; Start 10/23/16 at 09:00 Folic Acid (Folic Acid) 1 mg DAILY PO Last administered on 10/25/16 09:22; Admin Dose 1 MG; Start 10/23/16 at 09:00 Multivit/Ca Carb/ B Cmplx/FA/Prenat (Germaine-Nae) 1 tab DAILY PO Last administered on 10/25/16 09:22; Admin Dose 1 TAB; Start 10/23/16 at 09:00 Nifedipine (Procardia Xl) 60 mg DAILY PO Last administered on 10/25/16 09:22 ; Admin Dose 60 MG; Start 10/23/16 at 09:00 Paroxetine HCl (Paxil) 10 mg DAILY PO Last administered on 10/25/16 09:21; Admin Dose 10 MG; Start 10/23/16 at 09:00 Pyridoxine HCl (Vitamin B6) 100 mg DAILY PO Last administered on 10/25/16 09: 22; Admin Dose 100 MG; Start 10/23/16 at 09:00 Ranitidine HCl (Zantac) 150 mg BID PO Last administered on 10/25/16 21:49; Admin Dose 150 MG; Start 10/23/16 at 09:00 Tramadol HCl (Ultram) 50 mg Q8H PRN PO PRN; Start 10/23/16 at 02:00 Atorvastatin Calcium (Lipitor) 40 mg DAILY PO Last administered on 10/25/16 09:22; Admin Dose 40 MG; Start 10/23/16 at 09:00 Morphine Sulfate (morphine) 2 mg Q4H PRN IV PAIN Last administered on 01:00; Admin Dose 2 MG; Start 10/24/16 at 01:00 Aspirin (Aspirin) 81 mg DAILY PO Last administered on 10/25/16 09:22; Admin Dose 81 MG; Start 10/25/16 at 09:00 Lisinopril (Zestril) 5 mg BID PO Last administered on 10/25/16 21:49; Admin Dose 5 MG; Start 10/25/16 at 09:00 Hydralazine HCl (Apresoline) 10 mg Q6H PRN IV sbp>160mmhg Last administered on 10/25/16 06:38; Admin Dose 10 MG; Start 10/25/16 at 00:00 ROGERIO SOUZA MD Oct 25, 2016 23:41
[2016-10-26] VITALS (15 sets, daily range): BP systolic 105–191; BP diastolic 59–100; PULSE 52–81; RESP 16–20
[2016-10-26] MEDS: PYRIDOXINE 50 MG TAB PO SCH (08:14)
[2016-10-26] MEDS: AMANTADINE 100 MG CAP PO SCH (08:14)
[2016-10-26] MEDS: DOCUSATE SODIUM 100 MG CAP PO SCH (08:14)
[2016-10-26] MEDS: NIFEdipine (XL) 60 MG TAB PO SCH (08:14)
[2016-10-26] MEDS: ATORVASTATIN 40 MG TAB PO SCH (08:14)
[2016-10-26] MEDS: MULTIVIT/CA CARB/B CMPLX/FA TAB PO SCH (08:14)
[2016-10-26] MEDS: ASPIRIN 81 MG TAB PO SCH (08:14)
[2016-10-26] MEDS: RANITIDINE 150 MG TAB PO SCH ×2 (08:14→21:44)
[2016-10-26] MEDS: SEVELAMER 800 MG TAB PO SCH ×3 (08:14→18:07)
[2016-10-26] MEDS: FOLIC ACID 1 MG TAB PO SCH (08:14)
[2016-10-26] MEDS: PAROXETINE 10 MG TAB PO SCH (08:14)
[2016-10-26] MEDS: LISINOPRIL 5 MG TAB PO SCH ×2 (08:14→21:00)
[2016-10-26] MEDS ORDERED: ASP81 PO (10:26)
[2016-10-26] MEDS ORDERED: ATOR40TA68 PO (10:26)
[2016-10-26] MEDS ORDERED: AMLO-218 PO (10:26)
--- NOTE | 2016-10-26 10:27 | PDOCDIS ---
Discharge Instructions CONDITION Patient Condition: Stable HOME CARE INSTRUCTIONS: Special Diet: Mechanical soft ACTIVITY: Activity Restrictions: Slowly Increase Activity FOLLOW UP/APPOINTMENTS Appointments follow-up with primary care doctor OTHER ORDERS: Other Orders: call 911 or go to the nearest ER if you develop weakness, numbness, chest pain, shortness of breath, palpitations, fever, chills ROGERIO SOUZA MD Oct 26, 2016 10:27
[2016-10-26] MEDS ORDERED: MEGE400O PO (10:29)
--- NOTE | 2016-10-26 16:08 | CONS ---
Date/Time of Note Date/Time of Note DATE: 10/26/16 TIME: 16:07 Assessment/Plan Assessment/Plan Chief Complaint/Hosp Course IMPRESSION: A 46-year-old unfortunate male with the followin. HTN 2. Uob-DI-wldysnzju myocardial infarction. 3. 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 End-stage renal disease, on hemodialysis. 6. Chronic debility from previous cerebrovascular accident. 7. Anemia of chronic kidney disease with associated leukopenia. 8. Chronic depression. 9 HYPERCALCEMIA hx PLAN HD dc planning per pcp Problems: Consultation Date/Type/Reason Admit Date/Time Oct 23, 2016 at 14:38 Initial Consult Date 10/23/16 Type of Consultation: RENAL Referring Provider: KIA FREEDMAN 24 HR Interval Summary Constitutional: no complaints Exam/Review of Systems Vital Signs Vitals Vital Signs Date Time Temp Pulse Resp B/P Pulse Ox O2 Delivery O2 Flow Rate FiO2 10/26/16 15:31 98.0 54 20 191/88 100 10/24/16 04:00 Nasal Cannula 2.0 Intake and Output 10/25/16 10/25/16 10/26/16 15:00 23:00 07:00 Intake Total 1200 ml 600 ml Output Total 2500 ml Balance -1300 ml 600 ml Exam Neck: supple Respiratory: clear to auscultation Cardiovascular: regular rate and rhythm Gastrointestinal: soft Musculoskeletal: nl extremities to inspection Extremities: normal pulses Results Result Diagram: 10/25/16 0552 10/25/16 0552 Medications Medications Current Medications Amantadine HCl (Symmetrel) 100 mg DAILY PO Last administered on 10/26/16at 08: 14; Admin Dose 100 MG; Start 10/23/16 at 09:00 Cholecalciferol (Vitamin D) 800 units QHS PO Last administered on 10/25/16at 21 :49; Admin Dose 800 UNITS; Start 10/23/16 at 21:00 Docusate Sodium (Colace) 100 mg DAILY PO Last administered on 10/26/16at 08:14 ; Admin Dose 100 MG; Start 10/23/16 at 09:00 Folic Acid (Folic Acid) 1 mg DAILY PO Last administered on 10/26/16at 08:14; Admin Dose 1 MG; Start 10/23/16 at 09:00 Multivit/Ca Carb/ B Cmplx/FA/Prenat (Germaine-Nae) 1 tab DAILY PO Last administered on 10/26/16 08:14; Admin Dose 1 TAB; Start 10/23/16 at 09:00 Nifedipine (Procardia Xl) 60 mg DAILY PO Last administered on 10/26/16 08:14 ; Admin Dose 60 MG; Start 10/23/16 at 09:00 Paroxetine HCl (Paxil) 10 mg DAILY PO Last administered on 10/26/16 08:14; Admin Dose 10 MG; Start 10/23/16 at 09:00 Pyridoxine HCl (Vitamin B6) 100 mg DAILY PO Last administered on 10/26/16 08: 14; Admin Dose 100 MG; Start 10/23/16 at 09:00 Ranitidine HCl (Zantac) 150 mg BID PO Last administered on 10/26/16 08:14; Admin Dose 150 MG; Start 10/23/16 at 09:00 Tramadol HCl (Ultram) 50 mg Q8H PRN PO PRN; Start 10/23/16 at 02:00 Atorvastatin Calcium (Lipitor) 40 mg DAILY PO Last administered on 10/26/16 08:14; Admin Dose 40 MG; Start 10/23/16 at 09:00 Morphine Sulfate (morphine) 2 mg Q4H PRN IV PAIN Last administered on 01:00; Admin Dose 2 MG; Start 10/24/16 at 01:00 Aspirin (Aspirin) 81 mg DAILY PO Last administered on 10/26/16 08:14; Admin Dose 81 MG; Start 10/25/16 at 09:00 Lisinopril (Zestril) 5 mg BID PO Last administered on 10/26/16 08:14; Admin Dose 5 MG; Start 10/25/16 at 09:00 Hydralazine HCl (Apresoline) 10 mg Q6H PRN IV sbp>160mmhg Last administered on 10/25/16 06:38; Admin Dose 10 MG; Start 10/25/16 at 00:00 DEEPAK BERGER MD Oct 26, 2016 16:08
--- NOTE | 2016-10-26 16:21 | CONS ---
Date/Time of Note Date/Time of Note DATE: 10/26/16 TIME: 16:19 Assessment/Plan Assessment/Plan Additional Assessment/Plan 46 year old M ESRD, HTN, previous CVA with hemorrhagic component likely secondary to advanced small vessel disease and uncontrolled hypertension. likely hypertensive emergency PLAN: -may continue on antiplatelet therapy with Aspirin -maintain BP<140/90 -LDL: 34 continue on current dose of statin -check HBA1C -PT/OT/Speech Therapies -OK to DC home and follow up as outpatient. -sign off now Consultation Date/Type/Reason Admit Date/Time Oct 23, 2016 at 14:38 Initial Consult Date 10/23/16 Type of Consultation: RENAL Referring Provider: KIA FREEDMAN 24 HR Interval Summary Free Text/Dictation Doing well. No new complaints. Stii had increased BP this morning. Exam/Review of Systems Vital Signs Vitals Vital Signs Date Time Temp Pulse Resp B/P Pulse Ox O2 Delivery O2 Flow Rate FiO2 10/26/16 15:31 98.0 54 20 191/88 100 10/24/16 04:00 Nasal Cannula 2.0 Intake and Output 10/25/16 10/25/16 10/26/16 15:00 23:00 07:00 Intake Total 1200 ml 600 ml Output Total 2500 ml Balance -1300 ml 600 ml Exam Constitutional: alert, oriented Psych: nl mood/affect, no complaints Head: atraumatic, normocephalic Eyes: EOMI, nl conjunctiva, nl lids, nl sclera ENMT: mucosa pink and moist, nl external ears & nose, nl lips & teeth, nl nasal mucosa & septum Neck: non-tender, supple Respiratory: clear to auscultation, normal air movement Cardiovascular: nl pulses, regular rate and rhythm Gastrointestinal: nl liver, spleen, non-tender, soft Musculoskeletal: nl extremities to inspection Extremities: normal pulses Neurological: PLANER FEEDER II-XII intact, nl mental status, nl speech, nl strength Skin: nl turgor, rash or lesions Lymph: nl lymph nodes Results Result Diagram: 10/25/16 0552 10/25/16 0552 Medications Medications Current Medications Amantadine HCl (Symmetrel) 100 mg DAILY PO Last administered on 10/26/16at 08: 14; Admin Dose 100 MG; Start 10/23/16 at 09:00 Cholecalciferol (Vitamin D) 800 units QHS PO Last administered on 10/25/16at 21 :49; Admin Dose 800 UNITS; Start 10/23/16 at 21:00 Docusate Sodium (Colace) 100 mg DAILY PO Last administered on 10/26/16 08:14 ; Admin Dose 100 MG; Start 10/23/16 at 09:00 Folic Acid (Folic Acid) 1 mg DAILY PO Last administered on 10/26/16 08:14; Admin Dose 1 MG; Start 10/23/16 at 09:00 Multivit/Ca Carb/ B Cmplx/FA/Prenat (Germaine-Nae) 1 tab DAILY PO Last administered on 10/26/16 08:14; Admin Dose 1 TAB; Start 10/23/16 at 09:00 Nifedipine (Procardia Xl) 60 mg DAILY PO Last administered on 10/26/16 08:14 ; Admin Dose 60 MG; Start 10/23/16 at 09:00 Paroxetine HCl (Paxil) 10 mg DAILY PO Last administered on 10/26/16 08:14; Admin Dose 10 MG; Start 10/23/16 at 09:00 Pyridoxine HCl (Vitamin B6) 100 mg DAILY PO Last administered on 10/26/16 08: 14; Admin Dose 100 MG; Start 10/23/16 at 09:00 Ranitidine HCl (Zantac) 150 mg BID PO Last administered on 10/26/16 08:14; Admin Dose 150 MG; Start 10/23/16 at 09:00 Tramadol HCl (Ultram) 50 mg Q8H PRN PO PRN; Start 10/23/16 at 02:00 Atorvastatin Calcium (Lipitor) 40 mg DAILY PO Last administered on 10/26/16 08:14; Admin Dose 40 MG; Start 10/23/16 at 09:00 Morphine Sulfate (morphine) 2 mg Q4H PRN IV PAIN Last administered on 01:00; Admin Dose 2 MG; Start 10/24/16 at 01:00 Aspirin (Aspirin) 81 mg DAILY PO Last administered on 10/26/16 08:14; Admin Dose 81 MG; Start 10/25/16 at 09:00 Lisinopril (Zestril) 5 mg BID PO Last administered on 10/26/16 08:14; Admin Dose 5 MG; Start 10/25/16 at 09:00 Hydralazine HCl (Apresoline) 10 mg Q6H PRN IV sbp>160mmhg Last administered on 10/25/16at 06:38; Admin Dose 10 MG; Start 10/25/16 at 00:00 HARRIS DUMONT MD Oct 26, 2016 16:21
[2016-10-26] MEDS: hydrALAzine 20 MG INJ IV PRN (16:32)
[2016-10-26] MEDS: CHOLECALCIFEROL 400 UNITS TAB PO SCH (21:48)
[2016-10-27] VITALS (22 sets, daily range): BP systolic 116–186; BP diastolic 60–104; PULSE 48–84; RESP 16–18
[2016-10-27 07:12] LABS: ALBUMIN 3.8 g/dl (3.3-4.9)
[2016-10-27 07:13] LABS: POTASSIUM 4.9 mmol/L (3.5-5.1)
[2016-10-27 07:15] LABS: BILIRUBIN,INDIRECT 0.1 mg/dl (0-1.1); BILIRUBIN,TOTAL 0.1 mg/dl (0.2-1.3); CREATININE 6.42 mg/dl (0.61-1.24)
[2016-10-27 07:16] LABS: ALBUMIN/GLOBULIN RATIO 1.52; CALCIUM 10.7 mg/dl (8.4-10.2); TOTAL PROTEIN 6.3 g/dl (6.1-8.1)
[2016-10-27] MEDS: ATORVASTATIN 40 MG TAB PO SCH (08:17)
[2016-10-27] MEDS: SEVELAMER 800 MG TAB PO SCH ×3 (08:17→20:20)
[2016-10-27] MEDS: MULTIVIT/CA CARB/B CMPLX/FA TAB PO SCH (08:17)
[2016-10-27] MEDS: ASPIRIN 81 MG TAB PO SCH (08:17)
[2016-10-27] MEDS: PAROXETINE 10 MG TAB PO SCH (08:17)
[2016-10-27] MEDS: RANITIDINE 150 MG TAB PO SCH ×2 (08:18→20:21)
[2016-10-27] MEDS: FOLIC ACID 1 MG TAB PO SCH (08:18)
[2016-10-27] MEDS: AMANTADINE 100 MG CAP PO SCH (08:18)
[2016-10-27] MEDS: PYRIDOXINE 50 MG TAB PO SCH (08:18)
[2016-10-27] MEDS: DOCUSATE SODIUM 100 MG CAP PO SCH (08:18)
[2016-10-27] MEDS: LISINOPRIL 5 MG TAB PO SCH ×2 (08:19→20:23)
[2016-10-27] MEDS: NIFEdipine (XL) 60 MG TAB PO SCH (08:19)
--- NOTE | 2016-10-27 14:55 | CONS ---
Date/Time of Note Date/Time of Note DATE: 10/27/16 TIME: 14:52 Assessment/Plan Assessment/Plan Chief Complaint/Hosp Course IMPRESSION: A 46-year-old unfortunate male with the followin. HTN 2. Hrc-[place]-soburywol myocardial infarction. 3. 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 End-stage renal disease, on hemodialysis. 6. Chronic debility from previous cerebrovascular accident. 7. Anemia of chronic kidney disease with associated leukopenia. 8. Chronic depression. 9 HYPERCALCEMIA hx PLAN HD dc planning per pcp sensipar Problems: Consultation Date/Type/Reason Admit Date/Time Oct 23, 2016 at 14:38 Initial Consult Date 10/23/16 Type of Consultation: RENAL Referring Provider: KIA FREEDMAN 24 HR Interval Summary Constitutional: no complaints Exam/Review of Systems Vital Signs Vitals Vital Signs Date Time Temp Pulse Resp B/P Pulse Ox O2 Delivery O2 Flow Rate FiO2 10/27/16 12:56 52 10/27/16 12:09 97.6 18 186/98 100 10/24/16 04:00 Nasal Cannula 2.0 Intake and Output 10/26/16 10/26/16 10/27/16 15:00 23:00 07:00 Intake Total 660 ml 120 ml Balance 660 ml 120 ml Exam Neck: supple Respiratory: clear to auscultation Cardiovascular: regular rate and rhythm Gastrointestinal: soft Extremities: No edema Results Result Diagram: 10/25/16 0552 10/27/16 0620 Results 24 hrs Laboratory Tests Test 10/27/16 06:20 Alanine Aminotransferase (ALT/SGPT) 36 Albumin 3.8 Albumin/Globulin Ratio 1.52 Alkaline Phosphatase 63 Anion Gap 18 H Aspartate Amino Transf (AST/SGOT) 26 Blood Urea Nitrogen 50 H Calcium Level 10.7 H Carbon Dioxide Level 28 Chloride Level 97 Creatinine 6.42 H Direct Bilirubin 0.00 Globulin 2.50 Glucose Level 81 Hemoglobin A1c 4.6 Indirect Bilirubin 0.1 Potassium Level 4.9 Sodium Level 138 Total Bilirubin 0.1 L Total Protein 6.3 Medications Medications Current Medications Amantadine HCl (Symmetrel) 100 mg DAILY PO Last administered on 10/27/16t 08:18 ; Admin Dose 100 MG; Start 10/23/16 at 09:00 Cholecalciferol (Vitamin D) 800 units QHS PO Last administered on 10/26/16at 21 :48; Admin Dose 800 UNITS; Start 10/23/16 at 21:00 Docusate Sodium (Colace) 100 mg DAILY PO Last administered on 10/27/16 08:18; Admin Dose 100 MG; Start 10/23/16 at 09:00 Folic Acid (Folic Acid) 1 mg DAILY PO Last administered on 10/27/16 08:18; Admin Dose 1 MG; Start 10/23/16 at 09:00 Multivit/Ca Carb/ B Cmplx/FA/Prenat (Germaine-Nae) 1 tab DAILY PO Last administered on 10/27/16 08:17; Admin Dose 1 TAB; Start 10/23/16 at 09:00 Nifedipine (Procardia Xl) 60 mg DAILY PO Last administered on 10/27/16 08:19; Admin Dose 60 MG; Start 10/23/16 at 09:00 Paroxetine HCl (Paxil) 10 mg DAILY PO Last administered on 10/27/16 08:17; Admin Dose 10 MG; Start 10/23/16 at 09:00 Pyridoxine HCl (Vitamin B6) 100 mg DAILY PO Last administered on 10/27/16 08:18 ; Admin Dose 100 MG; Start 10/23/16 at 09:00 Ranitidine HCl (Zantac) 150 mg BID PO Last administered on 10/27/16 08:18; Admin Dose 150 MG; Start 10/23/16 at 09:00 Tramadol HCl (Ultram) 50 mg Q8H PRN PO PRN; Start 10/23/16 at 02:00 Atorvastatin Calcium (Lipitor) 40 mg DAILY PO Last administered on 10/27/16 08: 17; Admin Dose 40 MG; Start 10/23/16 at 09:00 Morphine Sulfate (morphine) 2 mg Q4H PRN IV PAIN Last administered on at 01:00; Admin Dose 2 MG; Start 10/24/16 at 01:00 Aspirin (Aspirin) 81 mg DAILY PO Last administered on 10/27/16 08:17; Admin Dose 81 MG; Start 10/25/16 at 09:00 Lisinopril (Zestril) 5 mg BID PO Last administered on 10/27/16 08:19; Admin Dose 5 MG; Start 10/25/16 at 09:00 Hydralazine HCl (Apresoline) 10 mg Q6H PRN IV sbp>160mmhg Last administered on 10/26/16at 16:32; Admin Dose 10 MG; Start 10/25/16 at 00:00 Cinacalcet (Sensipar) 30 mg DAILY PO ; Start 10/28/16 at 09:00; Status UNV Cinacalcet (Sensipar) 60 mg DAILY PO ; Start 10/28/16 at 09:00; Status UNV DEEPAK BERGER MD Oct 27, 2016 14:55
--- NOTE | 2016-10-27 17:30 | QN ---
Documentation Job number: [id number] Comment Progress notes done. For unclear reasons, this is not showing up in [facility]. Medical records aware. MERI KEN NP Oct 27, 2016 17:29
--- NOTE | 2016-10-27 18:10 | PN ---
DATE: 10/27/2016 SUBJECTIVE DATA: Denies any chest pain. Denies other complaints. OBJECTIVE DATA: VITAL SIGNS: Temperature 97.8, pulse rate 48, respiratory rate 17, blood pressure 154/96, oxygen saturation 100% on room air. GENERAL: This is a frail-looking male lying in bed in no apparent distress. HEENT: Head normocephalic and atraumatic. Eyes: Anicteric sclerae. Conjunctivae clear. ENT: Nasal septum is midline. Oral mucosa is dry. NECK: Supple. No JVD noticed. RESPIRATORY: Bilaterally clear to auscultation. No adventitious breath sounds. No use of accessory muscles of respiration. CARDIAC: Regular rate and rhythm. No murmurs. ABDOMEN: Scaphoid. Bowel sounds positive in all 4 quadrants. GENITOURINARY: Deferred. EXTREMITIES: No cyanosis, no clubbing. Bilateral lower extremity trace edema. Peripheral pulses palpable. NEUROLOGIC: The patient is awake and alert. Oriented x3. Mild dysarthria. Left arm is contracted with spasticity and limited movement. Left lower extremity has minimal movement against gravity. Right upper extremity and right lower extremity strength within normal limits. LABORATORY AND DIAGNOSTIC DATA: WBC 3.8, hemoglobin 11.6, hematocrit 34.6, platelet count 163. Sodium 130, potassium 4.9, chloride 97, carbon dioxide 28, anion gap 18, BUN 50, creatinine 6.42, glucose 81, calcium 10.7. ASSESSMENT AND PLAN: 1. Acute onset of syncope and dizziness. Brain imaging showing chronic hemorrhage centered in the right thalamus extending into the right sanford radiata with chronic micro hemorrhage in the left randall and a chronic right frontal lacunar infarct. No evidence of any acute infarct. The patient was evaluated by neurology. Neurology recommended to continue the patient on aspirin. Status post evaluation by speech therapy and physical therapy. Physical therapy recommending jail facility placement. 2. Non-ST elevation myocardial infarction. Continue antiplatelet therapy. Possibly a type 2 event. Cardiology following. 3. Essential hypertension. Continue antihypertensives. Adjust antihypertensives to obtain optimal blood pressure control. 4. End-stage renal disease on hemodialysis. The patient is being followed by nephrology. Continue hemodialysis as per nephrology. 5. Left hemiplegia secondary to prior cerebrovascular accident. Physical therapy evaluated the patient. Physical therapy recommending jail facility placement. 6. Major depression. Continue SSRIs. 7. Dyslipidemia. Continue statins. 8. Normocytic normochromic anemia. Most probably anemia of chronic kidney disease. We will continue to monitor the H and H closely. 9. Dysphagia. Continue aspiration precautions. Continue diet as per speech therapy recommendations. 10. Fluid, electrolytes, and nutrition. Continue pureed diet with nectar thick liquids. 11. DVT prophylaxis with bilateral sequential compression devices. 12. Gastrointestinal prophylaxis with histamine 2 receptor blockers. DISPOSITION AND PLAN: The patient is unstable for discharge for home. The patient needs further rehabilitation. The patient agreed to go to a jail facility. Case management order done for jail facility placement. Case discussed with Dr. Murillo. MERI MURILLO MD, AM/[facility] Conf#: [id number] DID#: [id number] MTDD
[2016-10-27] MEDS: CHOLECALCIFEROL 400 UNITS TAB PO SCH (20:21)
[2016-10-28] VITALS (12 sets, daily range): BP systolic 131–186; BP diastolic 76–91; PULSE 54–94; RESP 18–20
[2016-10-28 06:31] LABS: BASOPHILS % 0.7 % (0.0-2.0); EOSINOPHILS # 0.1 10^3/ul (0.0-0.5); EOSINOPHILS % 2.3 % (0.0-7.0); HEMATOCRIT 31.5 % (42.0-52.0); HEMOGLOBIN 10.6 g/dl (14.0-18.0); LYMPHOCYTES # 0.4 10^3/ul (0.8-2.9); LYMPHOCYTES % 15.9 % (15.0-51.0); MEAN CORPUSCULAR HEMOGLOBIN 31.5 pg (29.0-33.0); MEAN CORPUSCULAR HGB CONC 33.5 g/dl (32.0-37.0); MEAN CORPUSCULAR VOLUME 94.2 fl (82.0-101.0); MONOCYTE # 0.5 10^3/ul (0.3-0.9); MONOCYTES % 19.4 % (0.0-11.0); NEUTROPHIL # 1.7 10^3/ul (1.6-7.5); NEUTROPHILS % 61.7 % (39.0-77.0); PLATELET COUNT 169 10^3/UL (140-440); RED BLOOD COUNT 3.35 10^6/ul (4.70-6.10); UNCORRECTED WBC 2.8 10^3/ul (4.8-10.8); WHITE BLOOD COUNT 2.8 10^3/ul (4.8-10.8)
[2016-10-28 06:36] LABS: CONDITION 1; LH ANALYZER COMMENTS 1
[2016-10-28 07:00] LABS: POTASSIUM 4.8 mmol/L (3.5-5.1)
[2016-10-28 07:01] LABS: PHOSPHORUS 3.7 mg/dl (2.5-4.9)
[2016-10-28 07:02] LABS: CREATININE 4.63 mg/dl (0.61-1.24); MAGNESIUM 2.3 mg/dl (1.7-2.5); TROPONIN-I 0.544 ng/ml (0.00-0.12)
[2016-10-28 07:03] LABS: CALCIUM 10.1 mg/dl (8.4-10.2)
[2016-10-28 07:41] LABS: PLATELET ESTIMATE PLT APPEAR ADEQUATE
[2016-10-28] MEDS ORDERED: CINACALCET 30 MG TAB PO SCH (09:00)
[2016-10-28] MEDS: PYRIDOXINE 50 MG TAB PO SCH (09:42)
[2016-10-28] MEDS: FOLIC ACID 1 MG TAB PO SCH (09:42)
[2016-10-28] MEDS: ASPIRIN 81 MG TAB PO SCH (09:42)
[2016-10-28] MEDS: SEVELAMER 800 MG TAB PO SCH ×3 (09:42→17:25)
[2016-10-28] MEDS: PAROXETINE 10 MG TAB PO SCH (09:42)
[2016-10-28] MEDS: AMANTADINE 100 MG CAP PO SCH (09:42)
[2016-10-28] MEDS: MULTIVIT/CA CARB/B CMPLX/FA TAB PO SCH (09:42)
[2016-10-28] MEDS: LISINOPRIL 5 MG TAB PO SCH ×2 (09:43→21:54)
[2016-10-28] MEDS: ATORVASTATIN 40 MG TAB PO SCH (09:43)
[2016-10-28] MEDS: RANITIDINE 150 MG TAB PO SCH ×2 (09:43→21:53)
[2016-10-28] MEDS: CINACALCET 30 MG TAB PO SCH (09:43)
[2016-10-28] MEDS: DOCUSATE SODIUM 100 MG CAP PO SCH (09:43)
[2016-10-28] MEDS: NIFEdipine (XL) 60 MG TAB PO SCH (09:43)
--- NOTE | 2016-10-28 14:19 | CONS ---
Date/Time of Note Date/Time of Note DATE: 10/28/16 TIME: 14:18 Assessment/Plan Assessment/Plan Chief Complaint/Hosp Course IMPRESSION: A 46-year-old unfortunate male with the followin. HTN 2. [id number] myocardial infarction. 3. 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 4. HX [employer] BLEED 5. End-stage renal disease, on hemodialysis. 6. Chronic debility from previous cerebrovascular accident. 7. Anemia of chronic kidney disease with associated leukopenia. 8. Chronic depression. 9 HYPERCALCEMIA hx PLAN HD am dc planning per pcp sensipar Problems: Consultation Date/Type/Reason Admit Date/Time Oct 23, 2016 at 14:38 Initial Consult Date 10/23/16 Type of Consultation: RENAL Referring Provider: KIA FREEDMAN 24 HR Interval Summary Constitutional: no complaints Exam/Review of Systems Vital Signs Vitals Vital Signs Date Time Temp Pulse Resp B/P Pulse Ox O2 Delivery O2 Flow Rate FiO2 10/28/16 12:23 57 10/28/16 11:35 98.1 20 186/77 100 Intake and Output 10/27/16 10/27/16 10/28/16 15:00 23:00 07:00 Intake Total 150 ml 1200 ml Output Total 2000 ml Balance 150 ml -800 ml Exam Respiratory: clear to auscultation Cardiovascular: regular rate and rhythm Gastrointestinal: soft Extremities: No edema Results Result Diagram: 10/28/16 0525 10/28/16 0525 Results 24 hrs Laboratory Tests Test 10/28/16 05:25 Anion Gap 15 Basophils # 0.0 Basophils % 0.7 Blood Morphology Comment Blood Urea Nitrogen 37 #H Calcium Level 10.1 Carbon Dioxide Level 31 Chloride Level 97 Creatinine 4.63 #H Eosinophils # 0.1 Eosinophils % 2.3 Glucose Level 79 Hematocrit 31.5 L Hemoglobin 10.6 L Lymphocytes # 0.4 L Lymphocytes % 15.9 Magnesium Level 2.3 Mean Corpuscular Hemoglobin 31.5 Mean Corpuscular Hemoglobin Concent 33.5 Mean Corpuscular Volume 94.2 Mean Platelet Volume 8.0 Monocytes # 0.5 Monocytes % 19.4 H Neutrophils # 1.7 Neutrophils % 61.7 Nucleated Red Blood Cells # 0.0 Nucleated Red Blood Cells % 0.0 Phosphorus Level 3.7 Platelet Count 169 Platelet Estimate PLT APPEAR ADEQUATE Potassium Level 4.8 Red Blood Count 3.35 L Red Cell Distribution Width 15.0 H Sodium Level 138 Troponin I 0.544 *H White Blood Count 2.8 #L Medications Medications Current Medications Amantadine HCl (Symmetrel) 100 mg DAILY PO Last administered on 10/28/16 09:42 ; Admin Dose 100 MG; Start 10/23/16 at 09:00 Cholecalciferol (Vitamin D) 800 units QHS PO Last administered on 10/27/16 20: 21; Admin Dose 800 UNITS; Start 10/23/16 at 21:00 Docusate Sodium (Colace) 100 mg DAILY PO Last administered on 10/28/16 09:43; Admin Dose 100 MG; Start 10/23/16 at 09:00 Folic Acid (Folic Acid) 1 mg DAILY PO Last administered on 10/28/16 09:42; Admin Dose 1 MG; Start 10/23/16 at 09:00 Multivit/Ca Carb/ B Cmplx/FA/Prenat (Germaine-Nae) 1 tab DAILY PO Last administered on 10/28/16 09:42; Admin Dose 1 TAB; Start 10/23/16 at 09:00 Nifedipine (Procardia Xl) 60 mg DAILY PO Last administered on 10/28/16 09:43; Admin Dose 60 MG; Start 10/23/16 at 09:00 Paroxetine HCl (Paxil) 10 mg DAILY PO Last administered on 10/28/16 09:42; Admin Dose 10 MG; Start 10/23/16 at 09:00 Pyridoxine HCl (Vitamin B6) 100 mg DAILY PO Last administered on 10/28/16 09:42 ; Admin Dose 100 MG; Start 10/23/16 at 09:00 Ranitidine HCl (Zantac) 150 mg BID PO Last administered on 10/28/16 09:43; Admin Dose 150 MG; Start 10/23/16 at 09:00 Tramadol HCl (Ultram) 50 mg Q8H PRN PO PRN; Start 10/23/16 at 02:00 Atorvastatin Calcium (Lipitor) 40 mg DAILY PO Last administered on 10/28/16 09: 43; Admin Dose 40 MG; Start 10/23/16 at 09:00 Morphine Sulfate (morphine) 2 mg Q4H PRN IV PAIN Last administered on at 01:00; Admin Dose 2 MG; Start 10/24/16 at 01:00 Aspirin (Aspirin) 81 mg DAILY PO Last administered on 10/28/16 09:42; Admin Dose 81 MG; Start 10/25/16 at 09:00 Lisinopril (Zestril) 5 mg BID PO Last administered on 10/28/16 09:43; Admin Dose 5 MG; Start 10/25/16 at 09:00 Hydralazine HCl (Apresoline) 10 mg Q6H PRN IV sbp>160mmhg Last administered on 10/26/16 16:32; Admin Dose 10 MG; Start 10/25/16 at 00:00 Cinacalcet (Sensipar) 60 mg DAILY PO Last administered on 10/28/16 09:43; Admin Dose 60 MG; Start 10/28/16 at 09:00 DEEPAK BERGER MD Oct 28, 2016 14:18
--- NOTE | 2016-10-28 16:01 | PN ---
Date/Time of Note Date/Time of Note DATE: 10/28/16 TIME: 15:56 Assessment/Plan VTE Prophylaxis VTE Prophylaxis Intervention: SCD's Lines/Catheters [facility] Urinary Cath still in place: No Assessment/Plan Chief Complaint/Hosp Course Assessment and plan 1. Dizziness and syncope suspect secondary to acute CVA. Continue antiplatelet therapy as well as statin medication. Of note patient did have MRI of the brain on 10/15/2016 that did show findings compatible with chronic hemorrhage centered in the right thalamus extending into the right sanford radiata. There is also seen chronic right frontal lacunar infarct. Neurologist following. Continue on antiplatelet therapy as well as physical therapy services. 2. 2. Non-ST elevated myocardial infarction. Likely demand ischemia. Continue antibiotic therapy. Cardiologists following. 3. Essential hypertension. Continue on anti-hypertensives and adjust as needed. 4. End-stage renal disease. Continue on dialysis. Monitor renal panel. 5. 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 Continue physical therapy. 6. Anemia of chronic disease. H&H remained stable. We'll monitor. 7. History of major depression. Continue on Paxil 8. History of dyslipidemia. Continue on statin medication Disposition and plan: Discharge planning. Await placement for [facility]. Discussed with case management. Discussed plan of care with Problems: Subjective 24 Hr Interval Summary Free Text/Dictation no s/s of distress. appears comfortable at this time Exam/Review of Systems Vital Signs Vitals Vital Signs Date Time Temp Pulse Resp B/P Pulse Ox O2 Delivery O2 Flow Rate FiO2 10/28/16 12:23 57 10/28/16 11:35 98.1 20 186/77 100 Intake and Output 10/27/16 10/27/16 10/28/16 15:00 23:00 07:00 Intake Total 150 ml 1200 ml Output Total 2000 ml Balance 150 ml -800 ml Exam General: No acute signs or symptoms of distress Eyes: pupils equal round, Anicteric sclera Neck: Supple nontender, no JVD Cardiac: S1, S2 auscultated, regular rhythm and rate Pulmonary: No coarse rhonchi or breathing auscultated GI: Abdomen soft nontender nondistended, bowel sounds active Extremities: No edema bilateral lower extremities Skin: Clean dry and intact Neurologic: Alert to person place and time and situation Results Result Diagram: 10/28/16 0525 10/28/16 0525 Results 24 hrs Laboratory Tests Test 10/28/16 05:25 Anion Gap 15 Basophils # 0.0 Basophils % 0.7 Blood Morphology Comment Blood Urea Nitrogen 37 #H Calcium Level 10.1 Carbon Dioxide Level 31 Chloride Level 97 Creatinine 4.63 #H Eosinophils # 0.1 Eosinophils % 2.3 Glucose Level 79 Hematocrit 31.5 L Hemoglobin 10.6 L Lymphocytes # 0.4 L Lymphocytes % 15.9 Magnesium Level 2.3 Mean Corpuscular Hemoglobin 31.5 Mean Corpuscular Hemoglobin Concent 33.5 Mean Corpuscular Volume 94.2 Mean Platelet Volume 8.0 Monocytes # 0.5 Monocytes % 19.4 H Neutrophils # 1.7 Neutrophils % 61.7 Nucleated Red Blood Cells # 0.0 Nucleated Red Blood Cells % 0.0 Phosphorus Level 3.7 Platelet Count 169 Platelet Estimate PLT APPEAR ADEQUATE Potassium Level 4.8 Red Blood Count 3.35 L Red Cell Distribution Width 15.0 H Sodium Level 138 Troponin I 0.544 *H White Blood Count 2.8 #L Medications Medications Current Medications Amantadine HCl (Symmetrel) 100 mg DAILY PO Last administered on 10/28/16 09:42 ; Admin Dose 100 MG; Start 10/23/16 at 09:00 Cholecalciferol (Vitamin D) 800 units QHS PO Last administered on 10/27/16 20: 21; Admin Dose 800 UNITS; Start 10/23/16 at 21:00 Docusate Sodium (Colace) 100 mg DAILY PO Last administered on 10/28/16 09:43; Admin Dose 100 MG; Start 10/23/16 at 09:00 Folic Acid (Folic Acid) 1 mg DAILY PO Last administered on 10/28/16 09:42; Admin Dose 1 MG; Start 10/23/16 at 09:00 Multivit/Ca Carb/ B Cmplx/FA/Prenat (Germaine-Nae) 1 tab DAILY PO Last administered on 10/28/16 09:42; Admin Dose 1 TAB; Start 10/23/16 at 09:00 Nifedipine (Procardia Xl) 60 mg DAILY PO Last administered on 10/28/16 09:43; Admin Dose 60 MG; Start 10/23/16 at 09:00 Paroxetine HCl (Paxil) 10 mg DAILY PO Last administered on 10/28/16 09:42; Admin Dose 10 MG; Start 10/23/16 at 09:00 Pyridoxine HCl (Vitamin B6) 100 mg DAILY PO Last administered on 10/28/16 09:42 ; Admin Dose 100 MG; Start 10/23/16 at 09:00 Ranitidine HCl (Zantac) 150 mg BID PO Last administered on 10/28/16 09:43; Admin Dose 150 MG; Start 10/23/16 at 09:00 Tramadol HCl (Ultram) 50 mg Q8H PRN PO PRN; Start 10/23/16 at 02:00 Atorvastatin Calcium (Lipitor) 40 mg DAILY PO Last administered on 10/28/16 09: 43; Admin Dose 40 MG; Start 10/23/16 at 09:00 Morphine Sulfate (morphine) 2 mg Q4H PRN IV PAIN Last administered on at 01:00; Admin Dose 2 MG; Start 10/24/16 at 01:00 Aspirin (Aspirin) 81 mg DAILY PO Last administered on 10/28/16 09:42; Admin Dose 81 MG; Start 10/25/16 at 09:00 Lisinopril (Zestril) 5 mg BID PO Last administered on 10/28/16 09:43; Admin Dose 5 MG; Start 10/25/16 at 09:00 Hydralazine HCl (Apresoline) 10 mg Q6H PRN IV sbp>160mmhg Last administered on 10/26/16 16:32; Admin Dose 10 MG; Start 10/25/16 at 00:00 Cinacalcet (Sensipar) 60 mg DAILY PO Last administered on 10/28/16 09:43; Admin Dose 60 MG; Start 10/28/16 at 09:00 SANTO KIMBROUGH Oct 28, 2016 16:01
[2016-10-28] MEDS: hydrALAzine 20 MG INJ IV PRN (16:34)
[2016-10-28] MEDS: CHOLECALCIFEROL 400 UNITS TAB PO SCH (21:54)
[2016-10-29] VITALS (18 sets, daily range): BP systolic 110–141; BP diastolic 54–88; PULSE 68–89; RESP 16–20
[2016-10-29] MEDS: RANITIDINE 150 MG TAB PO SCH ×2 (08:48→20:57)
[2016-10-29] MEDS: AMANTADINE 100 MG CAP PO SCH (08:48)
[2016-10-29] MEDS: ASPIRIN 81 MG TAB PO SCH (08:48)
[2016-10-29] MEDS: LISINOPRIL 5 MG TAB PO SCH ×2 (08:48→20:57)
[2016-10-29] MEDS: FOLIC ACID 1 MG TAB PO SCH (08:48)
[2016-10-29] MEDS: SEVELAMER 800 MG TAB PO SCH ×3 (08:48→17:24)
[2016-10-29] MEDS: PYRIDOXINE 50 MG TAB PO SCH (08:48)
[2016-10-29] MEDS: CINACALCET 30 MG TAB PO SCH (08:48)
[2016-10-29] MEDS: PAROXETINE 10 MG TAB PO SCH (08:48)
[2016-10-29] MEDS: DOCUSATE SODIUM 100 MG CAP PO SCH (08:48)
[2016-10-29] MEDS: ATORVASTATIN 40 MG TAB PO SCH (08:48)
[2016-10-29] MEDS: MULTIVIT/CA CARB/B CMPLX/FA TAB PO SCH (08:48)
[2016-10-29] MEDS: NIFEdipine (XL) 60 MG TAB PO SCH (08:49)
[2016-10-29 10:51] LABS: BASOPHILS % 0.3 % (0.0-2.0); EOSINOPHILS % 1.3 % (0.0-7.0); HEMATOCRIT 32.3 % (42.0-52.0); HEMOGLOBIN 10.6 g/dl (14.0-18.0); LYMPHOCYTES # 0.4 10^3/ul (0.8-2.9); MEAN CORPUSCULAR HEMOGLOBIN 30.8 pg (29.0-33.0); MEAN CORPUSCULAR HGB CONC 32.7 g/dl (32.0-37.0); MEAN CORPUSCULAR VOLUME 94.3 fl (82.0-101.0); MEAN PLATELET VOLUME 8.2 fl (7.4-10.4); MONOCYTE # 0.5 10^3/ul (0.3-0.9); MONOCYTES % 12.7 % (0.0-11.0); NEUTROPHIL # 2.9 10^3/ul (1.6-7.5); NEUTROPHILS % 75.7 % (39.0-77.0); PLATELET COUNT 198 10^3/UL (140-440); RED BLOOD COUNT 3.42 10^6/ul (4.70-6.10); RED CELL DISTRIBUTION WIDTH 14.7 % (11.5-14.5); UNCORRECTED WBC 3.8 10^3/ul (4.8-10.8); WHITE BLOOD COUNT 3.8 10^3/ul (4.8-10.8)
[2016-10-29 10:57] LABS: CONDITION 1; LH ANALYZER COMMENTS 1
[2016-10-29 11:00] LABS: POTASSIUM 4.8 mmol/L (3.5-5.1)
[2016-10-29 11:02] LABS: CREATININE 5.5 mg/dl (0.61-1.24)
[2016-10-29 11:03] LABS: CALCIUM 10.2 mg/dl (8.4-10.2)
--- NOTE | 2016-10-29 11:28 | PN ---
Date/Time of Note Date/Time of Note DATE: 10/29/16 TIME: 11:27 Assessment/Plan VTE Prophylaxis VTE Prophylaxis Intervention: SCD's Lines/Catheters IV Catheter Type (from [facility]): [facility] Urinary Cath still in place: No Assessment/Plan Chief Complaint/Hosp Course Assessment and plan 1. Dizziness and syncope suspect secondary to acute CVA. Continue antiplatelet therapy as well as statin medication. Of note patient did have MRI of the brain on 10/15/2016 that did show findings compatible with chronic hemorrhage centered in the right thalamus extending into the right sanford radiata. There is also seen chronic right frontal lacunar infarct. Neurologist following. Continue on antiplatelet therapy as well as physical therapy services. Continue conservative management 2. 2. Non-ST elevated myocardial infarction. Likely demand ischemia. Continue antibiotic therapy. Cardiologists following. 3. Essential hypertension. Continue on anti-hypertensives and adjust as needed. 4. End-stage renal disease. Continue on dialysis. Monitor renal panel. 5. 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 Continue physical therapy. 6. Anemia of chronic disease. H&H remained stable. We'll monitor. 7. History of major depression. Continue on Paxil 8. History of dyslipidemia. Continue on statin medication Disposition and plan: Discharge planning. Await placement for [facility] facility. Discussed with case management. Continue supportive care for now Discussed plan of care with Problems: Subjective 24 Hr Interval Summary Free Text/Dictation Comfortable at this time. No apparent distress seen Exam/Review of Systems Vital Signs Vitals Vital Signs Date Time Temp Pulse Resp B/P Pulse Ox O2 Delivery O2 Flow Rate FiO2 10/29/16 11:10 98.1 73 18 141/82 92 Intake and Output 10/28/16 10/28/16 10/29/16 15:00 23:00 07:00 Intake Total 150 ml Balance 150 ml Exam General: No acute signs or symptoms of distress Eyes: pupils equal round, Anicteric sclera Neck: Supple nontender, no JVD Cardiac: S1, S2 auscultated, regular rhythm and rate Pulmonary: No coarse rhonchi or breathing auscultated GI: Abdomen soft nontender nondistended, bowel sounds active Extremities: No edema bilateral lower extremities Skin: Clean dry and intact Neurologic: Alert to person place and time and situation Results Result Diagram: 10/29/16 1000 10/29/16 1000 Results 24 hrs Laboratory Tests Test 10/29/16 10:00 Anion Gap 19 H Basophils # 0.0 Basophils % 0.3 Blood Morphology Comment Blood Urea Nitrogen 45 H Calcium Level 10.2 Carbon Dioxide Level 28 Chloride Level 98 Creatinine 5.50 H Eosinophils # 0.0 Eosinophils % 1.3 Glucose Level 128 # Hematocrit 32.3 L Hemoglobin 10.6 L Lymphocytes # 0.4 L Lymphocytes % 10.0 L Mean Corpuscular Hemoglobin 30.8 Mean Corpuscular Hemoglobin Concent 32.7 Mean Corpuscular Volume 94.3 Mean Platelet Volume 8.2 Monocytes # 0.5 Monocytes % 12.7 H Neutrophils # 2.9 Neutrophils % 75.7 Nucleated Red Blood Cells # 0.0 Nucleated Red Blood Cells % 0.0 Platelet Count 198 Potassium Level 4.8 Red Blood Count 3.42 L Red Cell Distribution Width 14.7 H Sodium Level 140 White Blood Count 3.8 #L Medications Medications Current Medications Amantadine HCl (Symmetrel) 100 mg DAILY PO Last administered on 10/29/16 08:48 ; Admin Dose 100 MG; Start 10/23/16 at 09:00 Cholecalciferol (Vitamin D) 800 units QHS PO Last administered on 10/28/16 21: 54; Admin Dose 800 UNITS; Start 10/23/16 at 21:00 Docusate Sodium (Colace) 100 mg DAILY PO Last administered on 10/29/16 08:48; Admin Dose 100 MG; Start 10/23/16 at 09:00 Folic Acid (Folic Acid) 1 mg DAILY PO Last administered on 10/29/16 08:48; Admin Dose 1 MG; Start 10/23/16 at 09:00 Multivit/Ca Carb/ B Cmplx/FA/Prenat (Germaine-Nae) 1 tab DAILY PO Last administered on 10/29/16 08:48; Admin Dose 1 TAB; Start 10/23/16 at 09:00 Nifedipine (Procardia Xl) 60 mg DAILY PO Last administered on 10/28/16 09:43; Admin Dose 60 MG; Start 10/23/16 at 09:00 Paroxetine HCl (Paxil) 10 mg DAILY PO Last administered on 10/29/16 08:48; Admin Dose 10 MG; Start 10/23/16 at 09:00 Pyridoxine HCl (Vitamin B6) 100 mg DAILY PO Last administered on 10/29/16 08:48 ; Admin Dose 100 MG; Start 10/23/16 at 09:00 Ranitidine HCl (Zantac) 150 mg BID PO Last administered on 10/29/16 08:48; Admin Dose 150 MG; Start 10/23/16 at 09:00 Tramadol HCl (Ultram) 50 mg Q8H PRN PO PRN; Start 10/23/16 at 02:00 Atorvastatin Calcium (Lipitor) 40 mg DAILY PO Last administered on 10/29/16 08: 48; Admin Dose 40 MG; Start 10/23/16 at 09:00 Morphine Sulfate (morphine) 2 mg Q4H PRN IV PAIN Last administered on at 01:00; Admin Dose 2 MG; Start 10/24/16 at 01:00 Aspirin (Aspirin) 81 mg DAILY PO Last administered on 10/29/16 08:48; Admin Dose 81 MG; Start 10/25/16 at 09:00 Lisinopril (Zestril) 5 mg BID PO Last administered on 10/28/16 21:54; Admin Dose 5 MG; Start 10/25/16 at 09:00 Hydralazine HCl (Apresoline) 10 mg Q6H PRN IV sbp>160mmhg Last administered on 10/28/16 16:34; Admin Dose 10 MG; Start 10/25/16 at 00:00 Cinacalcet (Sensipar) 60 mg DAILY PO Last administered on 10/29/16 08:48; Admin Dose 60 MG; Start 10/28/16 at 09:00 SANTO KIMBROUGH Oct 29, 2016 11:28
--- NOTE | 2016-10-29 13:11 | CONS ---
Date/Time of Note Date/Time of Note DATE: 10/29/16 TIME: 13:09 Assessment/Plan Assessment/Plan Additional Assessment/Plan Mild Elevated troponin Hypertension End-stage renal disease on hemodialysis History of CVA with possible acute CVA Low normal EF 50% -Blood pressure improved today, so episodes of hypertension but overall better. Would continue current antihypertensive medication regimen. DC planning Consultation Date/Type/Reason Admit Date/Time Oct 23, 2016 at 14:38 Initial Consult Date 10/23/16 Type of Consultation: cv Referring Provider: KIA FREEDMAN 24 HR Interval Summary Free Text/Dictation Patient denies chest pain, shortness of breath or headache Exam/Review of Systems Vital Signs Vitals Vital Signs Date Time Temp Pulse Resp B/P Pulse Ox O2 Delivery O2 Flow Rate FiO2 10/29/16 12:39 89 10/29/16 11:30 18 10/29/16 11:10 98.1 141/82 92 Intake and Output 10/28/16 10/28/16 10/29/16 15:00 23:00 07:00 Intake Total 150 ml Balance 150 ml Exam No apparent distress Constitutional: alert, frail, oriented Head: normocephalic Respiratory: other (course breath sounds bilaterally, no wheezing) Cardiovascular: other (S1 and S2 heard), regular rate and rhythm Gastrointestinal: bowel sounds, non-tender, soft Extremities: other (no edema) Results Result Diagram: 10/29/16 1000 10/29/16 1000 Results 24 hrs Laboratory Tests Test 10/29/16 10:00 Anion Gap 19 H Basophils # 0.0 Basophils % 0.3 Blood Morphology Comment Blood Urea Nitrogen 45 H Calcium Level 10.2 Carbon Dioxide Level 28 Chloride Level 98 Creatinine 5.50 H Eosinophils # 0.0 Eosinophils % 1.3 Glucose Level 128 # Hematocrit 32.3 L Hemoglobin 10.6 L Lymphocytes # 0.4 L Lymphocytes % 10.0 L Mean Corpuscular Hemoglobin 30.8 Mean Corpuscular Hemoglobin Concent 32.7 Mean Corpuscular Volume 94.3 Mean Platelet Volume 8.2 Monocytes # 0.5 Monocytes % 12.7 H Neutrophils # 2.9 Neutrophils % 75.7 Nucleated Red Blood Cells # 0.0 Nucleated Red Blood Cells % 0.0 Platelet Count 198 Potassium Level 4.8 Red Blood Count 3.42 L Red Cell Distribution Width 14.7 H Sodium Level 140 White Blood Count 3.8 #L Medications Medications Current Medications Amantadine HCl (Symmetrel) 100 mg DAILY PO Last administered on 10/29/16 08:48 ; Admin Dose 100 MG; Start 10/23/16 at 09:00 Cholecalciferol (Vitamin D) 800 units QHS PO Last administered on 10/28/16 21: 54; Admin Dose 800 UNITS; Start 10/23/16 at 21:00 Docusate Sodium (Colace) 100 mg DAILY PO Last administered on 10/29/16 08:48; Admin Dose 100 MG; Start 10/23/16 at 09:00 Folic Acid (Folic Acid) 1 mg DAILY PO Last administered on 10/29/16 08:48; Admin Dose 1 MG; Start 10/23/16 at 09:00 Multivit/Ca Carb/ B Cmplx/FA/Prenat (Germaine-Nae) 1 tab DAILY PO Last administered on 10/29/16 08:48; Admin Dose 1 TAB; Start 10/23/16 at 09:00 Nifedipine (Procardia Xl) 60 mg DAILY PO Last administered on 10/28/16 09:43; Admin Dose 60 MG; Start 10/23/16 at 09:00 Paroxetine HCl (Paxil) 10 mg DAILY PO Last administered on 10/29/16 08:48; Admin Dose 10 MG; Start 10/23/16 at 09:00 Pyridoxine HCl (Vitamin B6) 100 mg DAILY PO Last administered on 10/29/16 08:48 ; Admin Dose 100 MG; Start 10/23/16 at 09:00 Ranitidine HCl (Zantac) 150 mg BID PO Last administered on 10/29/16 08:48; Admin Dose 150 MG; Start 10/23/16 at 09:00 Tramadol HCl (Ultram) 50 mg Q8H PRN PO PRN; Start 10/23/16 at 02:00 Atorvastatin Calcium (Lipitor) 40 mg DAILY PO Last administered on 10/29/16 08: 48; Admin Dose 40 MG; Start 10/23/16 at 09:00 Morphine Sulfate (morphine) 2 mg Q4H PRN IV PAIN Last administered on at 01:00; Admin Dose 2 MG; Start 10/24/16 at 01:00 Aspirin (Aspirin) 81 mg DAILY PO Last administered on 10/29/16 08:48; Admin Dose 81 MG; Start 10/25/16 at 09:00 Lisinopril (Zestril) 5 mg BID PO Last administered on 10/28/16 21:54; Admin Dose 5 MG; Start 10/25/16 at 09:00 Hydralazine HCl (Apresoline) 10 mg Q6H PRN IV sbp>160mmhg Last administered on 10/28/16 16:34; Admin Dose 10 MG; Start 10/25/16 at 00:00 Cinacalcet (Sensipar) 60 mg DAILY PO Last administered on 10/29/16 08:48; Admin Dose 60 MG; Start 10/28/16 at 09:00 Abdulaziz Ny DO Oct 29, 2016 13:11
[2016-10-29] MEDS: CHOLECALCIFEROL 400 UNITS TAB PO SCH (20:57)
[2016-10-30] VITALS (12 sets, daily range): BP systolic 142–170; BP diastolic 74–93; PULSE 56–82; RESP 16–20
[2016-10-30 05:57] LABS: BASOPHIL # 0.1 10^3/ul (0.0-0.1); EOSINOPHILS # 0.1 10^3/ul (0.0-0.5); EOSINOPHILS % 1.7 % (0.0-7.0); HEMATOCRIT 30.6 % (42.0-52.0); HEMOGLOBIN 10.1 g/dl (14.0-18.0); LYMPHOCYTES # 0.3 10^3/ul (0.8-2.9); LYMPHOCYTES % 10.3 % (15.0-51.0); MEAN CORPUSCULAR HEMOGLOBIN 31.3 pg (29.0-33.0); MEAN CORPUSCULAR HGB CONC 33.1 g/dl (32.0-37.0); MEAN CORPUSCULAR VOLUME 94.7 fl (82.0-101.0); MEAN PLATELET VOLUME 7.8 fl (7.4-10.4); MONOCYTE # 0.5 10^3/ul (0.3-0.9); MONOCYTES % 14.9 % (0.0-11.0); NEUTROPHIL # 2.3 10^3/ul (1.6-7.5); NEUTROPHILS % 71.1 % (39.0-77.0); PLATELET COUNT 197 10^3/UL (140-440); RED BLOOD COUNT 3.23 10^6/ul (4.70-6.10); RED CELL DISTRIBUTION WIDTH 14.9 % (11.5-14.5); UNCORRECTED WBC 3.3 10^3/ul (4.8-10.8); WHITE BLOOD COUNT 3.3 10^3/ul (4.8-10.8)
[2016-10-30 06:22] LABS: POTASSIUM 5.5 mmol/L (3.5-5.1)
[2016-10-30 06:25] LABS: CALCIUM 10.1 mg/dl (8.4-10.2); CONDITION 1; CREATININE 5.1 mg/dl (0.61-1.24); LH ANALYZER COMMENTS 1
[2016-10-30] MEDS: SEVELAMER 800 MG TAB PO SCH ×3 (07:55→18:58)
[2016-10-30] MEDS: FOLIC ACID 1 MG TAB PO SCH (08:29)
[2016-10-30] MEDS: NIFEdipine (XL) 60 MG TAB PO SCH (08:29)
[2016-10-30] MEDS: CINACALCET 30 MG TAB PO SCH (08:30)
[2016-10-30] MEDS: PYRIDOXINE 50 MG TAB PO SCH (08:30)
[2016-10-30] MEDS: MULTIVIT/CA CARB/B CMPLX/FA TAB PO SCH (08:30)
[2016-10-30] MEDS: ATORVASTATIN 40 MG TAB PO SCH (08:31)
[2016-10-30] MEDS: LISINOPRIL 5 MG TAB PO SCH ×2 (08:31→20:47)
[2016-10-30] MEDS: PAROXETINE 10 MG TAB PO SCH (08:31)
[2016-10-30] MEDS: ASPIRIN 81 MG TAB PO SCH (08:31)
[2016-10-30] MEDS: DOCUSATE SODIUM 100 MG CAP PO SCH (08:31)
[2016-10-30] MEDS: RANITIDINE 150 MG TAB PO SCH ×2 (08:31→20:47)
[2016-10-30] MEDS: AMANTADINE 100 MG CAP PO SCH (08:31)
--- NOTE | 2016-10-30 12:53 | CONS ---
Date/Time of Note Date/Time of Note DATE: 10/30/16 TIME: 12:51 Assessment/Plan Assessment/Plan Additional Assessment/Plan Mild Elevated troponin Hypertension End-stage renal disease on hemodialysis History of CVA with possible acute CVA Low normal EF 50% -Patient with elevated blood pressure today, will not adjust medications until after dialysis, if blood pressure remains elevated, would increase lisinopril dose. Consultation Date/Type/Reason Admit Date/Time Oct 23, 2016 at 14:38 Initial Consult Date 10/23/16 Type of Consultation: cv Referring Provider: KIA FREEDMAN 24 HR Interval Summary Free Text/Dictation No shortness of breath, chest pain or palpitations Exam/Review of Systems Vital Signs Vitals Vital Signs Date Time Temp Pulse Resp B/P Pulse Ox O2 Delivery O2 Flow Rate FiO2 10/30/16 12:40 66 10/30/16 11:21 98.2 20 170/92 99 Intake and Output 10/29/16 10/29/16 10/30/16 15:00 23:00 07:00 Intake Total 500 ml 720 ml 150 ml Output Total 3500 ml Balance -3000 ml 720 ml 150 ml Exam No apparent distress Constitutional: alert, frail, oriented Head: normocephalic Neck: supple Respiratory: other Cardiovascular: other (S1-S2 heard), regular rate and rhythm Gastrointestinal: bowel sounds, non-tender, soft Extremities: other (no edema) Results Result Diagram: 10/30/16 0515 10/30/16 0515 Results 24 hrs Laboratory Tests Test 10/30/16 05:15 Anion Gap 17 H Basophils # 0.1 Basophils % 2.0 Blood Morphology Comment Blood Urea Nitrogen 34 #H Calcium Level 10.1 Carbon Dioxide Level 31 Chloride Level 103 Creatinine 5.10 H Eosinophils # 0.1 Eosinophils % 1.7 Glucose Level 88 # Hematocrit 30.6 L Hemoglobin 10.1 L Lymphocytes # 0.3 L Lymphocytes % 10.3 L Mean Corpuscular Hemoglobin 31.3 Mean Corpuscular Hemoglobin Concent 33.1 Mean Corpuscular Volume 94.7 Mean Platelet Volume 7.8 Monocytes # 0.5 Monocytes % 14.9 H Neutrophils # 2.3 Neutrophils % 71.1 Nucleated Red Blood Cells # 0.0 Nucleated Red Blood Cells % 0.0 Platelet Count 197 Potassium Level 5.5 H Red Blood Count 3.23 L Red Cell Distribution Width 14.9 H Sodium Level 145 H White Blood Count 3.3 L Medications Medications Current Medications Amantadine HCl (Symmetrel) 100 mg DAILY PO Last administered on 10/30/16 08:31 ; Admin Dose 100 MG; Start 10/23/16 at 09:00 Cholecalciferol (Vitamin D) 800 units QHS PO Last administered on 10/29/16 20: 57; Admin Dose 800 UNITS; Start 10/23/16 at 21:00 Docusate Sodium (Colace) 100 mg DAILY PO Last administered on 10/30/16 08:31; Admin Dose 100 MG; Start 10/23/16 at 09:00 Folic Acid (Folic Acid) 1 mg DAILY PO Last administered on 10/30/16 08:29; Admin Dose 1 MG; Start 10/23/16 at 09:00 Multivit/Ca Carb/ B Cmplx/FA/Prenat (Germaine-Nae) 1 tab DAILY PO Last administered on 10/30/16 08:30; Admin Dose 1 TAB; Start 10/23/16 at 09:00 Nifedipine (Procardia Xl) 60 mg DAILY PO Last administered on 10/30/16 08:29; Admin Dose 60 MG; Start 10/23/16 at 09:00 Paroxetine HCl (Paxil) 10 mg DAILY PO Last administered on 10/30/16 08:31; Admin Dose 10 MG; Start 10/23/16 at 09:00 Pyridoxine HCl (Vitamin B6) 100 mg DAILY PO Last administered on 10/30/16 08:30 ; Admin Dose 100 MG; Start 10/23/16 at 09:00 Ranitidine HCl (Zantac) 150 mg BID PO Last administered on 10/30/16 08:31; Admin Dose 150 MG; Start 10/23/16 at 09:00 Tramadol HCl (Ultram) 50 mg Q8H PRN PO PRN; Start 10/23/16 at 02:00 Atorvastatin Calcium (Lipitor) 40 mg DAILY PO Last administered on 10/30/16 08: 31; Admin Dose 40 MG; Start 10/23/16 at 09:00 Morphine Sulfate (morphine) 2 mg Q4H PRN IV PAIN Last administered on at 01:00; Admin Dose 2 MG; Start 10/24/16 at 01:00 Aspirin (Aspirin) 81 mg DAILY PO Last administered on 10/30/16 08:31; Admin Dose 81 MG; Start 10/25/16 at 09:00 Lisinopril (Zestril) 5 mg BID PO Last administered on 10/30/16 08:31; Admin Dose 5 MG; Start 10/25/16 at 09:00 Hydralazine HCl (Apresoline) 10 mg Q6H PRN IV sbp>160mmhg Last administered on 10/28/16 16:34; Admin Dose 10 MG; Start 10/25/16 at 00:00 Cinacalcet (Sensipar) 60 mg DAILY PO Last administered on 10/30/16 08:30; Admin Dose 60 MG; Start 10/28/16 at 09:00 Abdulaziz Ny DO Oct 30, 2016 12:53
--- NOTE | 2016-10-30 15:25 | PN ---
Date/Time of Note Date/Time of Note DATE: 10/30/16 TIME: 15:22 Assessment/Plan VTE Prophylaxis VTE Prophylaxis Intervention: SCD's Lines/Catheters [facility] Urinary Cath still in place: No Assessment/Plan Chief Complaint/Hosp Course Assessment and plan 1. Dizziness and syncope suspect secondary to acute CVA. Continue antiplatelet therapy as well as statin medication. Of note patient did have MRI of the brain on 10/15/2016 that did show findings compatible with chronic hemorrhage centered in the right thalamus extending into the right san[place] radiata. There is also seen chronic right frontal lacunar infarct. Neurologist following. Continue on antiplatelet therapy as well as physical therapy services. Continue conservative management 2. 2. Non-ST elevated myocardial infarction. Likely demand ischemia. Continue antibiotic therapy. Cardiologists following. 3. Essential hypertension. Continue on anti-hypertensives and adjust as needed. 4. End-stage renal disease. Continue on dialysis. Monitor renal panel. 5. 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 Continue physical therapy. 6. Anemia of chronic disease. H&H remained stable. We'll monitor. 7. History of major depression. Continue on Paxil 8. History of dyslipidemia. Continue on statin medication Disposition and plan: Discharge planning. Still Awaiting placement for [facility] facility. . Continue supportive care for now Discussed plan of care with Problems: Subjective 24 Hr Interval Summary Free Text/Dictation no s/s of distress. comfortable Exam/Review of Systems Vital Signs Vitals Vital Signs Date Time Temp Pulse Resp B/P Pulse Ox O2 Delivery O2 Flow Rate FiO2 10/30/16 14:59 97.9 67 20 148/77 98 Intake and Output 10/29/16 10/29/16 10/30/16 15:00 23:00 07:00 Intake Total 500 ml 720 ml 150 ml Output Total 3500 ml Balance -3000 ml 720 ml 150 ml Exam General: No acute signs or symptoms of distress Eyes: pupils equal round, Anicteric sclera Neck: Supple nontender, no JVD Cardiac: S1, S2 auscultated, regular rhythm and rate Pulmonary: No coarse rhonchi or breathing auscultated GI: Abdomen soft nontender nondistended, bowel sounds active Extremities: No edema bilateral lower extremities Skin: Clean dry and intact Neurologic: Alert to person place and time and situation Results Result Diagram: 10/30/16 0515 10/30/16 0515 Results 24 hrs Laboratory Tests Test 10/30/16 05:15 Anion Gap 17 H Basophils # 0.1 Basophils % 2.0 Blood Morphology Comment Blood Urea Nitrogen 34 #H Calcium Level 10.1 Carbon Dioxide Level 31 Chloride Level 103 Creatinine 5.10 H Eosinophils # 0.1 Eosinophils % 1.7 Glucose Level 88 # Hematocrit 30.6 L Hemoglobin 10.1 L Lymphocytes # 0.3 L Lymphocytes % 10.3 L Mean Corpuscular Hemoglobin 31.3 Mean Corpuscular Hemoglobin Concent 33.1 Mean Corpuscular Volume 94.7 Mean Platelet Volume 7.8 Monocytes # 0.5 Monocytes % 14.9 H Neutrophils # 2.3 Neutrophils % 71.1 Nucleated Red Blood Cells # 0.0 Nucleated Red Blood Cells % 0.0 Platelet Count 197 Potassium Level 5.5 H Red Blood Count 3.23 L Red Cell Distribution Width 14.9 H Sodium Level 145 H White Blood Count 3.3 L Medications Medications Current Medications Amantadine HCl (Symmetrel) 100 mg DAILY PO Last administered on 10/30/16 08:31 ; Admin Dose 100 MG; Start 10/23/16 at 09:00 Cholecalciferol (Vitamin D) 800 units QHS PO Last administered on 10/29/16 20: 57; Admin Dose 800 UNITS; Start 10/23/16 at 21:00 Docusate Sodium (Colace) 100 mg DAILY PO Last administered on 10/30/16 08:31; Admin Dose 100 MG; Start 10/23/16 at 09:00 Folic Acid (Folic Acid) 1 mg DAILY PO Last administered on 10/30/16 08:29; Admin Dose 1 MG; Start 10/23/16 at 09:00 Multivit/Ca Carb/ B Cmplx/FA/Prenat (Germaine-Nae) 1 tab DAILY PO Last administered on 10/30/16 08:30; Admin Dose 1 TAB; Start 10/23/16 at 09:00 Nifedipine (Procardia Xl) 60 mg DAILY PO Last administered on 10/30/16 08:29; Admin Dose 60 MG; Start 10/23/16 at 09:00 Paroxetine HCl (Paxil) 10 mg DAILY PO Last administered on 10/30/16 08:31; Admin Dose 10 MG; Start 10/23/16 at 09:00 Pyridoxine HCl (Vitamin B6) 100 mg DAILY PO Last administered on 10/30/16 08:30 ; Admin Dose 100 MG; Start 10/23/16 at 09:00 Ranitidine HCl (Zantac) 150 mg BID PO Last administered on 10/30/16 08:31; Admin Dose 150 MG; Start 10/23/16 at 09:00 Tramadol HCl (Ultram) 50 mg Q8H PRN PO PRN; Start 10/23/16 at 02:00 Atorvastatin Calcium (Lipitor) 40 mg DAILY PO Last administered on 10/30/16 08: 31; Admin Dose 40 MG; Start 10/23/16 at 09:00 Morphine Sulfate (morphine) 2 mg Q4H PRN IV PAIN Last administered on at 01:00; Admin Dose 2 MG; Start 10/24/16 at 01:00 Aspirin (Aspirin) 81 mg DAILY PO Last administered on 10/30/16 08:31; Admin Dose 81 MG; Start 10/25/16 at 09:00 Lisinopril (Zestril) 5 mg BID PO Last administered on 10/30/16 08:31; Admin Dose 5 MG; Start 10/25/16 at 09:00 Hydralazine HCl (Apresoline) 10 mg Q6H PRN IV sbp>160mmhg Last administered on 10/28/16 16:34; Admin Dose 10 MG; Start 10/25/16 at 00:00 Cinacalcet (Sensipar) 60 mg DAILY PO Last administered on 10/30/16 08:30; Admin Dose 60 MG; Start 10/28/16 at 09:00 SANTO KIMBROUGH Oct 30, 2016 15:25
--- NOTE | 2016-10-30 19:14 | CONS ---
Date/Time of Note Date/Time of Note DATE: 10/30/16 TIME: 19:13 Assessment/Plan Assessment/Plan Chief Complaint/Hosp Course IMPRESSION: A 46-year-old unfortunate male with the followin. HTN 2. [id number] myocardial infarction. 3. 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 4. 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 End-stage renal disease, on hemodialysis. 6. Chronic debility from previous cerebrovascular accident. 7. Anemia of chronic kidney disease with associated leukopenia. 8. Chronic depression. 9 HYPERCALCEMIA hx PLAN HD am dc planning per pcp sensipar HD Problems: Consultation Date/Type/Reason Admit Date/Time Oct 23, 2016 at 14:38 Initial Consult Date 10/23/16 Type of Consultation: RENAL Referring Provider: KIA FREEDMAN 24 HR Interval Summary Constitutional: no complaints Exam/Review of Systems Vital Signs Vitals Vital Signs Date Time Temp Pulse Resp B/P Pulse Ox O2 Delivery O2 Flow Rate FiO2 10/30/16 16:42 71 10/30/16 14:59 97.9 20 148/77 98 Intake and Output 10/29/16 10/29/16 10/30/16 15:00 23:00 07:00 Intake Total 500 ml 720 ml 150 ml Output Total 3500 ml Balance -3000 ml 720 ml 150 ml Exam Neck: supple Respiratory: clear to auscultation Cardiovascular: regular rate and rhythm Gastrointestinal: soft Musculoskeletal: nl extremities to inspection Results Result Diagram: 10/30/16 0515 10/30/16 0515 Results 24 hrs Laboratory Tests Test 10/30/16 05:15 Anion Gap 17 H Basophils # 0.1 Basophils % 2.0 Blood Morphology Comment Blood Urea Nitrogen 34 #H Calcium Level 10.1 Carbon Dioxide Level 31 Chloride Level 103 Creatinine 5.10 H Eosinophils # 0.1 Eosinophils % 1.7 Glucose Level 88 # Hematocrit 30.6 L Hemoglobin 10.1 L Lymphocytes # 0.3 L Lymphocytes % 10.3 L Mean Corpuscular Hemoglobin 31.3 Mean Corpuscular Hemoglobin Concent 33.1 Mean Corpuscular Volume 94.7 Mean Platelet Volume 7.8 Monocytes # 0.5 Monocytes % 14.9 H Neutrophils # 2.3 Neutrophils % 71.1 Nucleated Red Blood Cells # 0.0 Nucleated Red Blood Cells % 0.0 Platelet Count 197 Potassium Level 5.5 H Red Blood Count 3.23 L Red Cell Distribution Width 14.9 H Sodium Level 145 H White Blood Count 3.3 L Medications Medications Current Medications Amantadine HCl (Symmetrel) 100 mg DAILY PO Last administered on 10/30/16 08:31 ; Admin Dose 100 MG; Start 10/23/16 at 09:00 Cholecalciferol (Vitamin D) 800 units QHS PO Last administered on 10/29/16 20: 57; Admin Dose 800 UNITS; Start 10/23/16 at 21:00 Docusate Sodium (Colace) 100 mg DAILY PO Last administered on 10/30/16 08:31; Admin Dose 100 MG; Start 10/23/16 at 09:00 Folic Acid (Folic Acid) 1 mg DAILY PO Last administered on 10/30/16 08:29; Admin Dose 1 MG; Start 10/23/16 at 09:00 Multivit/Ca Carb/ B Cmplx/FA/Prenat (Germaine-Nae) 1 tab DAILY PO Last administered on 10/30/16 08:30; Admin Dose 1 TAB; Start 10/23/16 at 09:00 Nifedipine (Procardia Xl) 60 mg DAILY PO Last administered on 10/30/16 08:29; Admin Dose 60 MG; Start 10/23/16 at 09:00 Paroxetine HCl (Paxil) 10 mg DAILY PO Last administered on 10/30/16 08:; Admin Dose 10 MG; Start 10/23/16 at 09:00 Pyridoxine HCl (Vitamin B6) 100 mg DAILY PO Last administered on 10/30/16 08:30 ; Admin Dose 100 MG; Start 10/23/16 at 09:00 Ranitidine HCl (Zantac) 150 mg BID PO Last administered on 10/30/16 08:31; Admin Dose 150 MG; Start 10/23/16 at 09:00 Tramadol HCl (Ultram) 50 mg Q8H PRN PO PRN; Start 10/23/16 at 02:00 Atorvastatin Calcium (Lipitor) 40 mg DAILY PO Last administered on 10/30/16 08: ; Admin Dose 40 MG; Start 10/23/16 at 09:00 Morphine Sulfate (morphine) 2 mg Q4H PRN IV PAIN Last administered on at 01:00; Admin Dose 2 MG; Start 10/24/16 at 01:00 Aspirin (Aspirin) 81 mg DAILY PO Last administered on 10/30/16 08:31; Admin Dose 81 MG; Start 10/25/16 at 09:00 Lisinopril (Zestril) 5 mg BID PO Last administered on 10/30/16 08:31; Admin Dose 5 MG; Start 10/25/16 at 09:00 Hydralazine HCl (Apresoline) 10 mg Q6H PRN IV sbp>160mmhg Last administered on 10/28/16 16:34; Admin Dose 10 MG; Start 10/25/16 at 00:00 Cinacalcet (Sensipar) 60 mg DAILY PO Last administered on 10/30/16 08:30; Admin Dose 60 MG; Start 10/28/16 at 09:00 DEEPAK BERGER MD Oct 30, 2016 19:14
[2016-10-30] MEDS: CHOLECALCIFEROL 400 UNITS TAB PO SCH (20:46)
[2016-10-31] VITALS (20 sets, daily range): BP systolic 99–159; BP diastolic 46–97; PULSE 67–100; RESP 18–20
[2016-10-31 08:12] LABS: POTASSIUM 5.9 mmol/L (3.5-5.1)
[2016-10-31 08:14] LABS: CREATININE 6.87 mg/dl (0.61-1.24)
[2016-10-31 08:15] LABS: CALCIUM 10.9 mg/dl (8.4-10.2)
[2016-10-31] MEDS: LISINOPRIL 5 MG TAB PO SCH ×2 (09:00→20:23)
[2016-10-31] MEDS: ATORVASTATIN 40 MG TAB PO SCH (10:06)
[2016-10-31] MEDS: PAROXETINE 10 MG TAB PO SCH (10:06)
[2016-10-31] MEDS: DOCUSATE SODIUM 100 MG CAP PO SCH (10:07)
[2016-10-31] MEDS: FOLIC ACID 1 MG TAB PO SCH (10:07)
[2016-10-31] MEDS: ASPIRIN 81 MG TAB PO SCH (10:07)
[2016-10-31] MEDS: MULTIVIT/CA CARB/B CMPLX/FA TAB PO SCH (10:07)
[2016-10-31] MEDS: AMANTADINE 100 MG CAP PO SCH (10:07)
[2016-10-31] MEDS: SEVELAMER 800 MG TAB PO SCH ×3 (10:07→18:03)
[2016-10-31] MEDS: RANITIDINE 150 MG TAB PO SCH ×2 (10:07→20:23)
[2016-10-31] MEDS: CINACALCET 30 MG TAB PO SCH (10:07)
[2016-10-31] MEDS: PYRIDOXINE 50 MG TAB PO SCH (10:07)
[2016-10-31] MEDS: NIFEdipine (XL) 60 MG TAB PO SCH (10:08)
--- NOTE | 2016-10-31 13:44 | CONS ---
Date/Time of Note Date/Time of Note DATE: 10/31/16 TIME: 13:40 Assessment/Plan Assessment/Plan Chief Complaint/Hosp Course IMPRESSION: A 46-year-old unfortunate male with the followin. HTN 2. [id number] myocardial infarction. 3. 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 End-stage renal disease, on hemodialysis. 6. Chronic debility from previous cerebrovascular accident. 7. Anemia of chronic kidney disease with associated leukopenia. 8. Chronic depression. 9 HYPERCALCEMIA hx 10 hyperkalemia PLAN HD am dc planning per pcp sensipar HD kayexalate Problems: Consultation Date/Type/Reason Admit Date/Time Oct 23, 2016 at 14:38 Initial Consult Date 10/23/16 Type of Consultation: RENAL Referring Provider: KIA FREEDMAN 24 HR Interval Summary Constitutional: no complaints Exam/Review of Systems Vital Signs Vitals Vital Signs Date Time Temp Pulse Resp B/P Pulse Ox O2 Delivery O2 Flow Rate FiO2 10/31/16 12:29 67 10/31/16 11:13 97.8 20 115/66 100 Intake and Output 10/30/16 10/30/16 10/31/16 15:00 23:00 07:00 Intake Total 720 ml 150 ml Balance 720 ml 150 ml Exam Respiratory: clear to auscultation Cardiovascular: regular rate and rhythm Gastrointestinal: soft Musculoskeletal: nl extremities to inspection Results Result Diagram: 10/30/16 0515 10/31/16 0600 Results 24 hrs Laboratory Tests Test 10/31/16 06:00 10/31/16 07:44 10/31/16 08:01 Anion Gap 22 H Blood Urea Nitrogen 62 H Calcium Level 10.9 H Carbon Dioxide Level 28 Chloride Level 102 Creatinine 6.87 H Glucose Level 89 Potassium Level 5.9 H Sodium Level 146 H Lab Scanned Report REFERENCE LAB REFERENCE LAB Medications Medications Current Medications Amantadine HCl (Symmetrel) 100 mg DAILY PO Last administered on 10/31/16 10:07 ; Admin Dose 100 MG; Start 10/23/16 at 09:00 Docusate Sodium (Colace) 100 mg DAILY PO Last administered on 10/31/16 10:07; Admin Dose 100 MG; Start 10/23/16 at 09:00 Folic Acid (Folic Acid) 1 mg DAILY PO Last administered on 10/31/16 10:07; Admin Dose 1 MG; Start 10/23/16 at 09:00 Multivit/Ca Carb/ B Cmplx/FA/Prenat (Germaine-Nae) 1 tab DAILY PO Last administered on 10/31/16 10:07; Admin Dose 1 TAB; Start 10/23/16 at 09:00 Nifedipine (Procardia Xl) 60 mg DAILY PO Last administered on 10/31/16 10:08; Admin Dose 60 MG; Start 10/23/16 at 09:00 Paroxetine HCl (Paxil) 10 mg DAILY PO Last administered on 10/31/16 10:06; Admin Dose 10 MG; Start 10/23/16 at 09:00 Pyridoxine HCl (Vitamin B6) 100 mg DAILY PO Last administered on 10/31/16 10:07 ; Admin Dose 100 MG; Start 10/23/16 at 09:00 Ranitidine HCl (Zantac) 150 mg BID PO Last administered on 10/31/16 10:07; Admin Dose 150 MG; Start 10/23/16 at 09:00 Tramadol HCl (Ultram) 50 mg Q8H PRN PO PRN; Start 10/23/16 at 02:00 Atorvastatin Calcium (Lipitor) 40 mg DAILY PO Last administered on 10/31/16 10: 06; Admin Dose 40 MG; Start 10/23/16 at 09:00 Morphine Sulfate (morphine) 2 mg Q4H PRN IV PAIN Last administered on at 01:00; Admin Dose 2 MG; Start 10/24/16 at 01:00 Aspirin (Aspirin) 81 mg DAILY PO Last administered on 10/31/16 10:07; Admin Dose 81 MG; Start 10/25/16 at 09:00 Lisinopril (Zestril) 5 mg BID PO Last administered on 10/30/16 20:47; Admin Dose 5 MG; Start 10/25/16 at 09:00 Hydralazine HCl (Apresoline) 10 mg Q6H PRN IV sbp>160mmhg Last administered on 10/28/16 16:34; Admin Dose 10 MG; Start 10/25/16 at 00:00 Cinacalcet (Sensipar) 60 mg DAILY PO Last administered on 10/31/16 10:07; Admin Dose 60 MG; Start 10/28/16 at 09:00 DEEPAK BERGER MD Oct 31, 2016 13:44
[2016-10-31] MEDS ORDERED: NA POLYST SULFON 15 GM/60 ML BTL PO ONE (14:00)
--- NOTE | 2016-10-31 16:17 | PN ---
Date/Time of Note Date/Time of Note DATE: 10/31/16 TIME: 16:15 Assessment/Plan VTE Prophylaxis VTE Prophylaxis Intervention: SCD's Lines/Catheters IV [facility]ter Type (from [facility] Urinary Cath still in place: No Assessment/Plan Chief Complaint/Hosp Course Assessment and plan 1. Dizziness and syncope suspect secondary to acute CVA. Continue antiplatelet therapy as well as statin medication. Of note patient did have MRI of the brain on 10/15/2016 that did show findings compatible with chronic hemorrhage centered in the right thalamus extending into the right [place] radiata. There is also seen chronic right frontal lacunar infarct. Neurologist following. Continue on antiplatelet therapy as well as physical therapy services. Continue conservative management 2. 2. Non-ST elevated myocardial infarction. Likely demand ischemia. Continue antibiotic therapy. Cardiologists following. 3. Essential hypertension. Continue on anti-hypertensives and adjust as needed. 4. End-stage renal disease. Continue on dialysis. Monitor renal panel. 5. 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 Continue physical therapy. 6. Anemia of chronic disease. H&H remained stable. We'll monitor. 7. History of major depression. Continue on Paxil 8. History of dyslipidemia. Continue on statin medication 9. HYperkalemia. cont with HD. monitor level. provide with kayexalate as needed Disposition and plan: Discharge planning. Still Awaiting placement for senior living facility. . Continue supportive care for now. cont hd. monitor for hyperkalemia. Discussed plan of care with Problems: Subjective 24 Hr Interval Summary Free Text/Dictation comfortable at present. no s/s of distress Exam/Review of Systems Vital Signs Vitals Vital Signs Date Time Temp Pulse Resp B/P Pulse Ox O2 Delivery O2 Flow Rate FiO2 10/31/16 15:14 98.3 84 20 131/86 99 Intake and Output 10/30/16 10/30/16 10/31/16 15:00 23:00 07:00 Intake Total 720 ml 150 ml Balance 720 ml 150 ml Exam General: No acute signs or symptoms of distress Eyes: pupils equal round, Anicteric sclera Neck: Supple nontender, no JVD Cardiac: S1, S2 auscultated, regular rhythm and rate Pulmonary: No coarse rhonchi or breathing auscultated GI: Abdomen soft nontender nondistended, bowel sounds active Extremities: No edema bilateral lower extremities Skin: Clean dry and intact Neurologic: Alert to person place and time and situation Results Result Diagram: 10/30/16 0515 10/31/16 1500 Results 24 hrs Laboratory Tests Test 10/31/16 06:00 10/31/16 07:44 10/31/16 08:01 10/31/16 15:00 Anion Gap 22 H Blood Urea Nitrogen 62 H Calcium Level 10.9 H Carbon Dioxide Level 28 Chloride Level 102 Creatinine 6.87 H Glucose Level 89 Potassium Level 5.9 H 4.9 Sodium Level 146 H Lab Scanned Report REFERENCE LAB REFERENCE LAB Medications Medications Current Medications Amantadine HCl (Symmetrel) 100 mg DAILY PO Last administered on 10/31/16 10:07 ; Admin Dose 100 MG; Start 10/23/16 at 09:00 Docusate Sodium (Colace) 100 mg DAILY PO Last administered on 10/31/16 10:07; Admin Dose 100 MG; Start 10/23/16 at 09:00 Folic Acid (Folic Acid) 1 mg DAILY PO Last administered on 10/31/16 10:07; Admin Dose 1 MG; Start 10/23/16 at 09:00 Multivit/Ca Carb/ B Cmplx/FA/Prenat (Germaine-Nae) 1 tab DAILY PO Last administered on 10/31/16 10:07; Admin Dose 1 TAB; Start 10/23/16 at 09:00 Nifedipine (Procardia Xl) 60 mg DAILY PO Last administered on 10/31/16 10:08; Admin Dose 60 MG; Start 10/23/16 at 09:00 Paroxetine HCl (Paxil) 10 mg DAILY PO Last administered on 10/31/16 10:06; Admin Dose 10 MG; Start 10/23/16 at 09:00 Pyridoxine HCl (Vitamin B6) 100 mg DAILY PO Last administered on 10/31/16 10:07 ; Admin Dose 100 MG; Start 10/23/16 at 09:00 Ranitidine HCl (Zantac) 150 mg BID PO Last administered on 10/31/16 10:07; Admin Dose 150 MG; Start 10/23/16 at 09:00 Tramadol HCl (Ultram) 50 mg Q8H PRN PO PRN; Start 10/23/16 at 02:00 Atorvastatin Calcium (Lipitor) 40 mg DAILY PO Last administered on 10/31/16 10: 06; Admin Dose 40 MG; Start 10/23/16 at 09:00 Morphine Sulfate (morphine) 2 mg Q4H PRN IV PAIN Last administered on at 01:00; Admin Dose 2 MG; Start 10/24/16 at 01:00 Aspirin (Aspirin) 81 mg DAILY PO Last administered on 10/31/16 10:07; Admin Dose 81 MG; Start 10/25/16 at 09:00 Lisinopril (Zestril) 5 mg BID PO Last administered on 10/30/16 20:47; Admin Dose 5 MG; Start 10/25/16 at 09:00 Hydralazine HCl (Apresoline) 10 mg Q6H PRN IV sbp>160mmhg Last administered on 10/28/16 16:34; Admin Dose 10 MG; Start 10/25/16 at 00:00 Cinacalcet (Sensipar) 60 mg DAILY PO Last administered on 10/31/16 10:07; Admin Dose 60 MG; Start 10/28/16 at 09:00 SANTO KIMBROUGH Oct 31, 2016 16:17
[2016-11-01] VITALS (9 sets, daily range): BP systolic 105–132; BP diastolic 55–82; PULSE 80–84; RESP 16–20
[2016-11-01 05:34] LABS: POTASSIUM 4.9 mmol/L (3.5-5.1)
[2016-11-01 05:36] LABS: CREATININE 6.27 mg/dl (0.61-1.24)
[2016-11-01 05:37] LABS: CALCIUM 10.4 mg/dl (8.4-10.2)
[2016-11-01] MEDS: MULTIVIT/CA CARB/B CMPLX/FA TAB PO SCH (08:43)
[2016-11-01] MEDS: SEVELAMER 800 MG TAB PO SCH ×3 (08:43→17:55)
[2016-11-01] MEDS: ATORVASTATIN 40 MG TAB PO SCH (08:44)
[2016-11-01] MEDS: ASPIRIN 81 MG TAB PO SCH (08:44)
[2016-11-01] MEDS: DOCUSATE SODIUM 100 MG CAP PO SCH (08:44)
[2016-11-01] MEDS: PYRIDOXINE 50 MG TAB PO SCH (08:44)
[2016-11-01] MEDS: LISINOPRIL 5 MG TAB PO SCH ×2 (08:44→20:39)
[2016-11-01] MEDS: CINACALCET 30 MG TAB PO SCH (08:44)
[2016-11-01] MEDS: NIFEdipine (XL) 60 MG TAB PO SCH (08:44)
[2016-11-01] MEDS: FOLIC ACID 1 MG TAB PO SCH (08:45)
[2016-11-01] MEDS: AMANTADINE 100 MG CAP PO SCH (08:45)
[2016-11-01] MEDS: PAROXETINE 10 MG TAB PO SCH (08:45)
[2016-11-01] MEDS: RANITIDINE 150 MG TAB PO SCH ×2 (08:45→20:38)
--- NOTE | 2016-11-01 09:32 | PN ---
Date/Time of Note Date/Time of Note DATE: 11/01/16 TIME: 09:31 Assessment/Plan VTE Prophylaxis VTE Prophylaxis Intervention: SCD's Lines/Catheters IV Catheter Type (from [facility]): Saline Lock Urinary Cath still in place: No Assessment/Plan Chief Complaint/Hosp Course Assessment and plan 1. Dizziness and syncope suspect secondary to acute CVA. Continue antiplatelet therapy as well as statin medication. Of note patient did have MRI of the brain on 10/15/2016 that did show findings compatible with chronic hemorrhage centered in the right thalamus extending into the right sanford radiata. There is also seen chronic right frontal lacunar infarct. Neurologist following. Continue on antiplatelet therapy as well as physical therapy services. Continue conservative management 2. 2. Non-ST elevated myocardial infarction. Likely demand ischemia. Continue antibiotic therapy. Cardiologists following. 3. Essential hypertension. Continue on anti-hypertensives and adjust as needed. 4. End-stage renal disease. Continue on dialysis. Monitor renal panel. 5. 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 Continue physical therapy. 6. Anemia of chronic disease. H&H remained stable. We'll monitor. 7. History of major depression. Continue on Paxil 8. History of dyslipidemia. Continue on statin medication 9. HYperkalemia. cont with HD. monitor level. provide with kayexalate as needed Disposition and plan: Discharge planning. Still A[facility]ing placement for [facility]. . Continue supportive care for now. cont HD. transfer to med/ surg Discussed plan of care with Problems: Subjective 24 Hr Interval Summary Free Text/Dictation comfortable at this time. no s/s of distress Exam/Review of Systems Vital Signs Vitals Vital Signs Date Time Temp Pulse Resp B/P Pulse Ox O2 Delivery O2 Flow Rate FiO2 11/01/16 08:43 80 11/01/16 07:19 98.5 18 107/71 97 Intake and Output 10/31/16 10/31/16 11/01/16 15:00 23:00 07:00 Intake Total 500 ml 720 ml Output Total 3000 ml Balance -2500 ml 720 ml Exam General: No acute signs or symptoms of distress Eyes: pupils equal round, Anicteric sclera Neck: Supple nontender, no JVD Cardiac: S1, S2 auscultated, regular rhythm and rate Pulmonary: No coarse rhonchi or breathing auscultated GI: Abdomen soft nontender nondistended, bowel sounds active Extremities: No edema bilateral lower extremities Skin: Clean dry and intact Neurologic: Alert to person place and time and situation Results Result Diagram: 10/30/16 0515 11/01/16 0455 Results 24 hrs Laboratory Tests Test 10/31/16 15:00 11/01/16 04:55 Ionized Calcium (Measured) 1.3 Potassium Level 4.9 4.9 Anion Gap 21 H Blood Urea Nitrogen 52 H Calcium Level 10.4 H Carbon Dioxide Level 31 Chloride Level 100 Creatinine 6.27 H Glucose Level 98 Sodium Level 147 H Medications Medications Current Medications Amantadine HCl (Symmetrel) 100 mg DAILY PO Last administered on 11/01/16 08:45 ; Admin Dose 100 MG; Start 10/23/16 at 09:00 Docusate Sodium (Colace) 100 mg DAILY PO Last administered on 11/01/16 08:44; Admin Dose 100 MG; Start 10/23/16 at 09:00 Folic Acid (Folic Acid) 1 mg DAILY PO Last administered on 11/01/16 08:45; Admin Dose 1 MG; Start 10/23/16 at 09:00 Multivit/Ca Carb/ B Cmplx/FA/Prenat (Germaine-Nae) 1 tab DAILY PO Last administered on 11/01/16 08:43; Admin Dose 1 TAB; Start 10/23/16 at 09:00 Nifedipine (Procardia Xl) 60 mg DAILY PO Last administered on 11/01/16 08:44; Admin Dose 60 MG; Start 10/23/16 at 09:00 Paroxetine HCl (Paxil) 10 mg DAILY PO Last administered on 11/01/16 08:45; Admin Dose 10 MG; Start 10/23/16 at 09:00 Pyridoxine HCl (Vitamin B6) 100 mg DAILY PO Last administered on 11/01/16 08:44 ; Admin Dose 100 MG; Start 10/23/16 at 09:00 Ranitidine HCl (Zantac) 150 mg BID PO Last administered on 11/01/16 08:45; Admin Dose 150 MG; Start 10/23/16 at 09:00 Tramadol HCl (Ultram) 50 mg Q8H PRN PO PRN; Start 10/23/16 at 02:00 Atorvastatin Calcium (Lipitor) 40 mg DAILY PO Last administered on 11/01/16 08: 44; Admin Dose 40 MG; Start 10/23/16 at 09:00 Morphine Sulfate (morphine) 2 mg Q4H PRN IV PAIN Last administered on at 01:00; Admin Dose 2 MG; Start 10/24/16 at 01:00 Aspirin (Aspirin) 81 mg DAILY PO Last administered on 11/01/16 08:44; Admin Dose 81 MG; Start 10/25/16 at 09:00 Lisinopril (Zestril) 5 mg BID PO Last administered on 11/01/16 08:44; Admin Dose 5 MG; Start 10/25/16 at 09:00 Hydralazine HCl (Apresoline) 10 mg Q6H PRN IV sbp>160mmhg Last administered on 10/28/16 16:34; Admin Dose 10 MG; Start 10/25/16 at 00:00 Cinacalcet (Sensipar) 60 mg DAILY PO Last administered on 11/01/16 08:44; Admin Dose 60 MG; Start 10/28/16 at 09:00 SANTO KIMBROUGH Nov 01, 2016 09:32
--- NOTE | 2016-11-01 12:08 | CONS ---
Date/Time of Note Date/Time of Note DATE: 11/01/16 TIME: 12:06 Assessment/Plan Assessment/Plan Additional Assessment/Plan Mild Elevated troponin Hypertension End-stage renal disease on hemodialysis History of CVA with possible acute CVA Low normal EF 50% -Blood pressure trend overall remained stable on current medication regimen, awaiting placement. Consultation Date/Type/Reason Admit Date/Time Oct 23, 2016 at 14:38 Initial Consult Date 10/23/16 Type of Consultation: cv Referring Provider: KIA FREEDMAN 24 HR Interval Summary Free Text/Dictation Denies shortness of breath or chest pain, undergoing physical therapy Exam/Review of Systems Vital Signs Vitals Vital Signs Date Time Temp Pulse Resp B/P Pulse Ox O2 Delivery O2 Flow Rate FiO2 11/01/16 11:10 98.5 70 18 123/82 100 Intake and Output 10/31/16 10/31/16 11/01/16 15:00 23:00 07:00 Intake Total 500 ml 720 ml Output Total 3000 ml Balance -2500 ml 720 ml Exam Constitutional: alert, frail, oriented Head: normocephalic Respiratory: other (course breath sounds bilaterally, no wheezing) Cardiovascular: other (S1 and S2 heard), regular rate and rhythm Gastrointestinal: bowel sounds, non-tender, soft Extremities: other (no edema) Results Result Diagram: 10/30/16 0515 11/01/16 0455 Results 24 hrs Laboratory Tests Test 10/31/16 15:00 11/01/16 04:55 Ionized Calcium (Measured) 1.3 Potassium Level 4.9 4.9 Anion Gap 21 H Blood Urea Nitrogen 52 H Calcium Level 10.4 H Carbon Dioxide Level 31 Chloride Level 100 Creatinine 6.27 H Glucose Level 98 Sodium Level 147 H Medications Medications Current Medications Amantadine HCl (Symmetrel) 100 mg DAILY PO Last administered on 11/01/16 08:45 ; Admin Dose 100 MG; Start 10/23/16 at 09:00 Docusate Sodium (Colace) 100 mg DAILY PO Last administered on 11/01/16 08:44; Admin Dose 100 MG; Start 10/23/16 at 09:00 Folic Acid (Folic Acid) 1 mg DAILY PO Last administered on 11/01/16 08:45; Admin Dose 1 MG; Start 10/23/16 at 09:00 Multivit/Ca Carb/ B Cmplx/FA/Prenat (Germaine-Nae) 1 tab DAILY PO Last administered on 11/01/16 08:43; Admin Dose 1 TAB; Start 10/23/16 at 09:00 Nifedipine (Procardia Xl) 60 mg DAILY PO Last administered on 11/01/16 08:44; Admin Dose 60 MG; Start 10/23/16 at 09:00 Paroxetine HCl (Paxil) 10 mg DAILY PO Last administered on 11/01/16 08:45; Admin Dose 10 MG; Start 10/23/16 at 09:00 Pyridoxine HCl (Vitamin B6) 100 mg DAILY PO Last administered on 11/01/16 08:44 ; Admin Dose 100 MG; Start 10/23/16 at 09:00 Ranitidine HCl (Zantac) 150 mg BID PO Last administered on 11/01/16 08:45; Admin Dose 150 MG; Start 10/23/16 at 09:00 Tramadol HCl (Ultram) 50 mg Q8H PRN PO PRN; Start 10/23/16 at 02:00 Atorvastatin Calcium (Lipitor) 40 mg DAILY PO Last administered on 11/01/16 08: 44; Admin Dose 40 MG; Start 10/23/16 at 09:00 Morphine Sulfate (morphine) 2 mg Q4H PRN IV PAIN Last administered on at 01:00; Admin Dose 2 MG; Start 10/24/16 at 01:00 Aspirin (Aspirin) 81 mg DAILY PO Last administered on 11/01/16 08:44; Admin Dose 81 MG; Start 10/25/16 at 09:00 Lisinopril (Zestril) 5 mg BID PO Last administered on 11/01/16 08:44; Admin Dose 5 MG; Start 10/25/16 at 09:00 Hydralazine HCl (Apresoline) 10 mg Q6H PRN IV sbp>160mmhg Last administered on 10/28/16 16:34; Admin Dose 10 MG; Start 10/25/16 at 00:00 Cinacalcet (Sensipar) 60 mg DAILY PO Last administered on 11/01/16 08:44; Admin Dose 60 MG; Start 10/28/16 at 09:00 Abdulaziz Ny DO Nov 01, 2016 12:08
--- NOTE | 2016-11-01 17:26 | CONS ---
Date/Time of Note Date/Time of Note DATE: 11/01/16 TIME: 17:26 Assessment/Plan Assessment/Plan Chief Complaint/Hosp Course IMPRESSION: A 46-year-old unfortunate male with the followin. HTN 2. [id number] myocardial infarction. 3. 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 4. HX [employer] BLEED 5. End-stage renal disease, on hemodialysis. 6. Chronic debility from previous cerebrovascular accident. 7. Anemia of chronic kidney disease with associated leukopenia. 8. Chronic depression. 9 HYPERCALCEMIA hx 10 hyperkalemia PLAN HD am dc planning per pcp sensipar HD Problems: Consultation Date/Type/Reason Admit Date/Time Oct 23, 2016 at 14:38 Initial Consult Date 10/23/16 Type of Consultation: renal Referring Provider: KIA FREEDMAN 24 HR Interval Summary Constitutional: no complaints Exam/Review of Systems Vital Signs Vitals Vital Signs Date Time Temp Pulse Resp B/P Pulse Ox O2 Delivery O2 Flow Rate FiO2 11/01/16 15:22 98.3 56 18 130/80 96 Intake and Output 10/31/16 10/31/16 11/01/16 15:00 23:00 07:00 Intake Total 500 ml 720 ml Output Total 3000 ml Balance -2500 ml 720 ml Exam Neck: supple Respiratory: clear to auscultation Cardiovascular: regular rate and rhythm Gastrointestinal: soft Results Result Diagram: 10/30/16 0515 11/01/16 0455 Results 24 hrs Laboratory Tests Test 11/01/16 04:55 Anion Gap 21 H Blood Urea Nitrogen 52 H Calcium Level 10.4 H Carbon Dioxide Level 31 Chloride Level 100 Creatinine 6.27 H Glucose Level 98 Potassium Level 4.9 Sodium Level 147 H Medications Medications Current Medications Amantadine HCl (Symmetrel) 100 mg DAILY PO Last administered on 11/01/16 08:45 ; Admin Dose 100 MG; Start 10/23/16 at 09:00 Docusate Sodium (Colace) 100 mg DAILY PO Last administered on 11/01/16 08:44; Admin Dose 100 MG; Start 10/23/16 at 09:00 Folic Acid (Folic Acid) 1 mg DAILY PO Last administered on 11/01/16 08:45; Admin Dose 1 MG; Start 10/23/16 at 09:00 Multivit/Ca Carb/ B Cmplx/FA/Prenat (Germaine-Nae) 1 tab DAILY PO Last administered on 11/01/16 08:43; Admin Dose 1 TAB; Start 10/23/16 at 09:00 Nifedipine (Procardia Xl) 60 mg DAILY PO Last administered on 11/01/16 08:44; Admin Dose 60 MG; Start 10/23/16 at 09:00 Paroxetine HCl (Paxil) 10 mg DAILY PO Last administered on 11/01/16 08:45; Admin Dose 10 MG; Start 10/23/16 at 09:00 Pyridoxine HCl (Vitamin B6) 100 mg DAILY PO Last administered on 11/01/16 08:44 ; Admin Dose 100 MG; Start 10/23/16 at 09:00 Ranitidine HCl (Zantac) 150 mg BID PO Last administered on 11/01/16 08:45; Admin Dose 150 MG; Start 10/23/16 at 09:00 Tramadol HCl (Ultram) 50 mg Q8H PRN PO PRN; Start 10/23/16 at 02:00 Atorvastatin Calcium (Lipitor) 40 mg DAILY PO Last administered on 11/01/16 08: 44; Admin Dose 40 MG; Start 10/23/16 at 09:00 Morphine Sulfate (morphine) 2 mg Q4H PRN IV PAIN Last administered on at 01:00; Admin Dose 2 MG; Start 10/24/16 at 01:00 Aspirin (Aspirin) 81 mg DAILY PO Last administered on 11/01/16 08:44; Admin Dose 81 MG; Start 10/25/16 at 09:00 Lisinopril (Zestril) 5 mg BID PO Last administered on 11/01/16 08:44; Admin Dose 5 MG; Start 10/25/16 at 09:00 Hydralazine HCl (Apresoline) 10 mg Q6H PRN IV sbp>160mmhg Last administered on 10/28/16 16:34; Admin Dose 10 MG; Start 10/25/16 at 00:00 Cinacalcet (Sensipar) 60 mg DAILY PO Last administered on 11/01/16 08:44; Admin Dose 60 MG; Start 10/28/16 at 09:00 DEEPAK BERGER MD Nov 01, 2016 17:26
[2016-11-02] VITALS (11 sets, daily range): BP systolic 100–172; BP diastolic 56–96; PULSE 54–106; RESP 20
[2016-11-02 06:17] LABS: POTASSIUM 5.8 mmol/L (3.5-5.1)
[2016-11-02 06:19] LABS: CREATININE 7.64 mg/dl (0.61-1.24)
[2016-11-02 06:20] LABS: CALCIUM 10.5 mg/dl (8.4-10.2)
--- NOTE | 2016-11-02 06:24 | PN ---
Date/Time of Note Date/Time of Note DATE: 11/02/16 TIME: 06:23 Assessment/Plan VTE Prophylaxis VTE Prophylaxis Intervention: SCD's Lines/Catheters IV [facility] Type [facility]from [facility] Saline Lock Urinary Cath still in place: No Assessment/Plan Assessment/Plan Mild Elevated troponin Hypertension End-stage renal disease on hemodialysis History of CVA with possible acute CVA Low normal EF 50% -Blood pressure trend overall remained stable on current medication regimen, -continue renal care -no further cardiac reccomndations Subjective 24 Hr Interval Summary Free Text/Dictation The patient with no change Exam/Review of Systems Vital Signs Vitals Vital Signs Date Time Temp Pulse Resp B/P Pulse Ox O2 Delivery O2 Flow Rate FiO2 11/01/16 19:53 98.4 68 20 116/74 100 Intake and Output 11/01/16 11/01/16 11/02/16 15:00 23:00 07:00 Intake Total 600 ml 250 ml 250 ml Balance 600 ml 250 ml 250 ml Results Result Diagram: 10/30/16 0515 11/01/16 0455 Medications Medications Current Medications Amantadine HCl (Symmetrel) 100 mg DAILY PO Last administered on 11/01/16 08:45 ; Admin Dose 100 MG; Start 10/23/16 at 09:00 Docusate Sodium (Colace) 100 mg DAILY PO Last administered on 11/01/16 08:44; Admin Dose 100 MG; Start 10/23/16 at 09:00 Folic Acid (Folic Acid) 1 mg DAILY PO Last administered on 11/01/16 08:45; Admin Dose 1 MG; Start 10/23/16 at 09:00 Multivit/Ca Carb/ B Cmplx/FA/Prenat (Germaine-Nae) 1 tab DAILY PO Last administered on 11/01/16 08:43; Admin Dose 1 TAB; Start 10/23/16 at 09:00 Nifedipine (Procardia Xl) 60 mg DAILY PO Last administered on 11/01/16 08:44; Admin Dose 60 MG; Start 10/23/16 at 09:00 Paroxetine HCl (Paxil) 10 mg DAILY PO Last administered on 11/01/16 08:45; Admin Dose 10 MG; Start 10/23/16 at 09:00 Pyridoxine HCl (Vitamin B6) 100 mg DAILY PO Last administered on 11/01/16 08:44 ; Admin Dose 100 MG; Start 10/23/16 at 09:00 Ranitidine HCl (Zantac) 150 mg BID PO Last administered on 11/01/16 20:38; Admin Dose 150 MG; Start 10/23/16 at 09:00 Tramadol HCl (Ultram) 50 mg Q8H PRN PO PRN; Start 10/23/16 at 02:00 Atorvastatin Calcium (Lipitor) 40 mg DAILY PO Last administered on 11/01/16 08: 44; Admin Dose 40 MG; Start 10/23/16 at 09:00 Morphine Sulfate (morphine) 2 mg Q4H PRN IV PAIN Last administered on at 01:00; Admin Dose 2 MG; Start 10/24/16 at 01:00 Aspirin (Aspirin) 81 mg DAILY PO Last administered on 11/01/16 08:44; Admin Dose 81 MG; Start 10/25/16 at 09:00 Lisinopril (Zestril) 5 mg BID PO Last administered on 11/01/16 08:44; Admin Dose 5 MG; Start 10/25/16 at 09:00 Hydralazine HCl (Apresoline) 10 mg Q6H PRN IV sbp>160mmhg Last administered on 10/28/16 16:34; Admin Dose 10 MG; Start 10/25/16 at 00:00 Cinacalcet (Sensipar) 90 mg DAILY PO ; Start 11/02/16 at 09:00 LINDSAY PORRAS MD Nov 02, 2016 06:24
[2016-11-02] MEDS: NIFEdipine (XL) 60 MG TAB PO SCH (09:00)
[2016-11-02] MEDS: LISINOPRIL 5 MG TAB PO SCH ×2 (09:00→20:38)
[2016-11-02] MEDS: MULTIVIT/CA CARB/B CMPLX/FA TAB PO SCH (09:11)
[2016-11-02] MEDS: PYRIDOXINE 50 MG TAB PO SCH (09:12)
[2016-11-02] MEDS: AMANTADINE 100 MG CAP PO SCH (09:12)
[2016-11-02] MEDS: RANITIDINE 150 MG TAB PO SCH (09:12)
[2016-11-02] MEDS: PAROXETINE 10 MG TAB PO SCH (09:12)
[2016-11-02] MEDS: FOLIC ACID 1 MG TAB PO SCH (09:12)
[2016-11-02] MEDS: ATORVASTATIN 40 MG TAB PO SCH (09:12)
[2016-11-02] MEDS: SEVELAMER 800 MG TAB PO SCH ×3 (09:12→18:30)
[2016-11-02] MEDS: ASPIRIN 81 MG TAB PO SCH (09:12)
[2016-11-02] MEDS: DOCUSATE SODIUM 100 MG CAP PO SCH (09:12)
[2016-11-02] MEDS: CINACALCET 30 MG TAB PO SCH (12:54)
--- NOTE | 2016-11-02 13:32 | CONS ---
Date/Time of Note Date/Time of Note DATE: 11/02/16 TIME: 13:31 Assessment/Plan Assessment/Plan Additional Assessment/Plan Mild Elevated troponin Hypertension End-stage renal disease on hemodialysis History of CVA with possible acute CVA Low normal EF 50% plan: HD today Afebrile, BP stable no chest pain will follow up Consultation Date/Type/Reason Admit Date/Time Oct 23, 2016 at 14:38 Initial Consult Date 10/23/16 Type of Consultation: NEPHROLOGY Referring Provider: KIA FREEDMAN 24 HR Interval Summary Free Text/Dictation Plan for HD today, afebirle, Bps t able Exam/Review of Systems Vital Signs Vitals Vital Signs Date Time Temp Pulse Resp B/P Pulse Ox O2 Delivery O2 Flow Rate FiO2 11/02/16 12:33 101 20 11/02/16 08:00 98.3 136/90 98 Intake and Output 11/01/16 11/01/16 11/02/16 15:00 23:00 07:00 Intake Total 600 ml 250 ml 250 ml Balance 600 ml 250 ml 250 ml Exam Constitutional: alert, frail, oriented Head: normocephalic Respiratory: other (course breath sounds bilaterally, no wheezing) Cardiovascular: other (S1 and S2 heard), regular rate and rhythm Gastrointestinal: bowel sounds, non-tender, soft Extremities: other (no edema) Results Result Diagram: 10/30/16 0515 11/02/16 0447 Results 24 hrs Laboratory Tests Test 11/02/16 04:47 Anion Gap 23 H Blood Urea Nitrogen 74 H Calcium Level 10.5 H Carbon Dioxide Level 26 Chloride Level 99 Creatinine 7.64 H Glucose Level 91 Potassium Level 5.8 H Sodium Level 142 Medications Medications Current Medications Amantadine HCl (Symmetrel) 100 mg DAILY PO Last administered on 11/02/16 09:12 ; Admin Dose 100 MG; Start 10/23/16 at 09:00 Docusate Sodium (Colace) 100 mg DAILY PO Last administered on 11/02/16 09:12; Admin Dose 100 MG; Start 10/23/16 at 09:00 Folic Acid (Folic Acid) 1 mg DAILY PO Last administered on 11/02/16 09:12; Admin Dose 1 MG; Start 10/23/16 at 09:00 Multivit/Ca Carb/ B Cmplx/FA/Prenat (Germaine-Nae) 1 tab DAILY PO Last administered on 11/02/16 09:11; Admin Dose 1 TAB; Start 10/23/16 at 09:00 Nifedipine (Procardia Xl) 60 mg DAILY PO Last administered on 11/01/16 08:44; Admin Dose 60 MG; Start 10/23/16 at 09:00 Paroxetine HCl (Paxil) 10 mg DAILY PO Last administered on 11/02/16 09:12; Admin Dose 10 MG; Start 10/23/16 at 09:00 Pyridoxine HCl (Vitamin B6) 100 mg DAILY PO Last administered on 11/02/16 09:12 ; Admin Dose 100 MG; Start 10/23/16 at 09:00 Ranitidine HCl (Zantac) 150 mg BID PO Last administered on 11/02/16 09:12; Admin Dose 150 MG; Start 10/23/16 at 09:00 Tramadol HCl (Ultram) 50 mg Q8H PRN PO PRN; Start 10/23/16 at 02:00 Atorvastatin Calcium (Lipitor) 40 mg DAILY PO Last administered on 11/02/16 09: 12; Admin Dose 40 MG; Start 10/23/16 at 09:00 Morphine Sulfate (morphine) 2 mg Q4H PRN IV PAIN Last administered on at 01:00; Admin Dose 2 MG; Start 10/24/16 at 01:00 Aspirin (Aspirin) 81 mg DAILY PO Last administered on 11/02/16 09:12; Admin Dose 81 MG; Start 10/25/16 at 09:00 Lisinopril (Zestril) 5 mg BID PO Last administered on 11/01/16 08:44; Admin Dose 5 MG; Start 10/25/16 at 09:00 Hydralazine HCl (Apresoline) 10 mg Q6H PRN IV sbp>160mmhg Last administered on 10/28/16 16:34; Admin Dose 10 MG; Start 10/25/16 at 00:00 Cinacalcet (Sensipar) 90 mg DAILY PO Last administered on 11/02/16 12:54; Admin Dose 90 MG; Start 11/02/16 at 09:00 AUGUSTA VALERIO MD Nov 02, 2016 13:32
--- NOTE | 2016-11-02 14:58 | PN ---
Date/Time of Note Date/Time of Note DATE: 11/02/16 TIME: 14:56 Assessment/Plan VTE Prophylaxis VTE Prophylaxis Intervention: SCD's Lines/Catheters [facility] Saline Lock Urinary Cath still in place: No Assessment/Plan Chief Complaint/Hosp Course Assessment and plan 1. Dizziness and syncope suspect secondary to acute CVA. Continue antiplatelet therapy as well as statin medication. Of note patient did have MRI of the brain on 10/15/2016 that did show findings compatible with chronic hemorrhage centered in the right thalamus extending into the right sanford radiata. There is also seen chronic right frontal lacunar infarct. Neurologist following. Continue on antiplatelet therapy as well as physical therapy services. Continue conservative management 2. 2. Non-ST elevated myocardial infarction. Likely demand ischemia. Continue antibiotic therapy. Cardiologists following. 3. Essential hypertension. Continue on anti-hypertensives and adjust as needed. 4. End-stage renal disease. Continue on dialysis. Monitor renal panel. 5. 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 Continue physical therapy. 6. Anemia of chronic disease. H&H remained stable. We'll monitor. 7. History of major depression. Continue on Paxil 8. History of dyslipidemia. Continue on statin medication 9. HYperkalemia. cont with HD. monitor level. provide with kayexalate as needed Disposition and plan: Discharge planning. [facility]. . Continue supportive care for now. cont HD. Follow up AM labs Discussed plan of care with Problems: Subjective 24 Hr Interval Summary Free Text/Dictation Comfortable at this time. No apparent distress Exam/Review of Systems Vital Signs Vitals Vital Signs Date Time Temp Pulse Resp B/P Pulse Ox O2 Delivery O2 Flow Rate FiO2 11/02/16 12:33 101 20 11/02/16 08:00 98.3 136/90 98 Intake and Output 11/01/16 11/01/16 11/02/16 15:00 23:00 07:00 Intake Total 600 ml 250 ml 250 ml Balance 600 ml 250 ml 250 ml Exam General: No acute signs or symptoms of distress Eyes: pupils equal round, Anicteric sclera Neck: Supple nontender, no JVD Cardiac: S1, S2 auscultated, regular rhythm and rate Pulmonary: No coarse rhonchi or breathing auscultated GI: Abdomen soft nontender nondistended, bowel sounds active Extremities: No edema bilateral lower extremities Skin: Clean dry and intact Neurologic: Alert to person place and time and situation Results Result Diagram: 10/30/16 0515 11/02/16 0447 Results 24 hrs Laboratory Tests Test 11/02/16 04:47 Anion Gap 23 H Blood Urea Nitrogen 74 H Calcium Level 10.5 H Carbon Dioxide Level 26 Chloride Level 99 Creatinine 7.64 H Glucose Level 91 Potassium Level 5.8 H Sodium Level 142 Medications Medications Current Medications Amantadine HCl (Symmetrel) 100 mg DAILY PO Last administered on 11/02/16 09:12 ; Admin Dose 100 MG; Start 10/23/16 at 09:00 Docusate Sodium (Colace) 100 mg DAILY PO Last administered on 11/02/16 09:12; Admin Dose 100 MG; Start 10/23/16 at 09:00 Folic Acid (Folic Acid) 1 mg DAILY PO Last administered on 11/02/16 09:12; Admin Dose 1 MG; Start 10/23/16 at 09:00 Multivit/Ca Carb/ B Cmplx/FA/Prenat (Germaine-Nae) 1 tab DAILY PO Last administered on 11/02/16 09:11; Admin Dose 1 TAB; Start 10/23/16 at 09:00 Nifedipine (Procardia Xl) 60 mg DAILY PO Last administered on 11/01/16 08:44; Admin Dose 60 MG; Start 10/23/16 at 09:00 Paroxetine HCl (Paxil) 10 mg DAILY PO Last administered on 11/02/16 09:12; Admin Dose 10 MG; Start 10/23/16 at 09:00 Pyridoxine HCl (Vitamin B6) 100 mg DAILY PO Last administered on 11/02/16 09:12 ; Admin Dose 100 MG; Start 10/23/16 at 09:00 Ranitidine HCl (Zantac) 150 mg BID PO Last administered on 11/02/16 09:12; Admin Dose 150 MG; Start 10/23/16 at 09:00 Tramadol HCl (Ultram) 50 mg Q8H PRN PO PRN; Start 10/23/16 at 02:00 Atorvastatin Calcium (Lipitor) 40 mg DAILY PO Last administered on 11/02/16 09: 12; Admin Dose 40 MG; Start 10/23/16 at 09:00 Morphine Sulfate (morphine) 2 mg Q4H PRN IV PAIN Last administered on at 01:00; Admin Dose 2 MG; Start 10/24/16 at 01:00 Aspirin (Aspirin) 81 mg DAILY PO Last administered on 11/02/16 09:12; Admin Dose 81 MG; Start 10/25/16 at 09:00 Lisinopril (Zestril) 5 mg BID PO Last administered on 11/01/16 08:44; Admin Dose 5 MG; Start 10/25/16 at 09:00 Hydralazine HCl (Apresoline) 10 mg Q6H PRN IV sbp>160mmhg Last administered on 10/28/16 16:34; Admin Dose 10 MG; Start 10/25/16 at 00:00 Cinacalcet (Sensipar) 90 mg DAILY PO Last administered on 11/02/16 12:54; Admin Dose 90 MG; Start 11/02/16 at 09:00 SANTO KIMBROUGH Nov 02, 2016 14:58
[2016-11-03 05:46] LABS: POTASSIUM 4.8 mmol/L (3.5-5.1)
[2016-11-03 05:48] LABS: CREATININE 5.59 mg/dl (0.61-1.24)
[2016-11-03 07:59] VITALS: BP 114/56; RESP 18
[2016-11-03] MEDS: LISINOPRIL 5 MG TAB PO SCH ×2 (09:00→21:00)
[2016-11-03] MEDS: ASPIRIN 81 MG TAB PO SCH (09:15)
[2016-11-03] MEDS: PAROXETINE 10 MG TAB PO SCH (09:16)
[2016-11-03] MEDS: PYRIDOXINE 50 MG TAB PO SCH (09:16)
[2016-11-03] MEDS: MULTIVIT/CA CARB/B CMPLX/FA TAB PO SCH (09:16)
[2016-11-03] MEDS: RANITIDINE 150 MG TAB PO SCH (09:16)
[2016-11-03] MEDS: NIFEdipine (XL) 60 MG TAB PO SCH (09:16)
[2016-11-03] MEDS: ATORVASTATIN 40 MG TAB PO SCH (09:16)
[2016-11-03] MEDS: DOCUSATE SODIUM 100 MG CAP PO SCH (09:16)
[2016-11-03] MEDS: SEVELAMER 800 MG TAB PO SCH ×3 (09:17→17:18)
[2016-11-03] MEDS: CINACALCET 30 MG TAB PO SCH (09:17)
[2016-11-03] MEDS: FOLIC ACID 1 MG TAB PO SCH (09:17)
[2016-11-03] MEDS: AMANTADINE 100 MG CAP PO SCH (10:38)
--- NOTE | 2016-11-03 12:47 | CONS ---
Date/Time of Note Date/Time of Note DATE: 11/03/16 TIME: 12:46 Assessment/Plan Assessment/Plan Additional Assessment/Plan NSTEMI due to demand ischemia Hypertension End-stage renal disease on hemodialysis History of CVA with possible acute CVA Low normal EF 50% plan: Hd ordered for tomorrow Afebrile, BP stable no chest pain will follow up Consultation Date/Type/Reason Admit Date/Time Oct 23, 2016 at 14:38 Initial Consult Date 10/23/16 Type of Consultation: NEPHROLOGY Referring Provider: KIA FREEDMAN 24 HR Interval Summary Free Text/Dictation no acute events, BP stable Exam/Review of Systems Vital Signs Vitals Vital Signs Date Time Temp Pulse Resp B/P Pulse Ox O2 Delivery O2 Flow Rate FiO2 11/03/16 07:59 97.9 67 18 114/56 100 Intake and Output 11/02/16 11/02/16 11/03/16 15:00 23:00 07:00 Intake Total 500 ml 800 ml 620 ml Output Total 2000 ml 1500 ml Balance -1500 ml -700 ml 620 ml Exam General: No acute signs or symptoms of distress Cardiac: S1, S2 auscultated, regular rhythm and rate Pulmonary: No coarse rhonchi or breathing auscultated GI: Abdomen soft nontender nondistended, bowel sounds active Extremities: No edema bilateral lower extremities Neurologic: Alert to person place and time and situation Results Result Diagram: 10/30/16 0515 11/03/16 0428 Results 24 hrs Laboratory Tests Test 11/03/16 04:28 Anion Gap 20 H Blood Urea Nitrogen 52 H Calcium Level 10.0 Carbon Dioxide Level 33 H Chloride Level 94 L Creatinine 5.59 #H Glucose Level 93 Potassium Level 4.8 Sodium Level 142 Medications Medications Current Medications Amantadine HCl (Symmetrel) 100 mg DAILY PO Last administered on 11/03/16 10:38 ; Admin Dose 100 MG; Start 10/23/16 at 09:00 Docusate Sodium (Colace) 100 mg DAILY PO Last administered on 11/03/16 09:16; Admin Dose 100 MG; Start 10/23/16 at 09:00 Folic Acid (Folic Acid) 1 mg DAILY PO Last administered on 11/03/16 09:17; Admin Dose 1 MG; Start 10/23/16 at 09:00 Multivit/Ca Carb/ B Cmplx/FA/Prenat (Germaine-Nae) 1 tab DAILY PO Last administered on 11/03/16 09:16; Admin Dose 1 TAB; Start 10/23/16 at 09:00 Nifedipine (Procardia Xl) 60 mg DAILY PO Last administered on 11/03/16 09:16; Admin Dose 60 MG; Start 10/23/16 at 09:00 Paroxetine HCl (Paxil) 10 mg DAILY PO Last administered on 11/03/16 09:16; Admin Dose 10 MG; Start 10/23/16 at 09:00 Pyridoxine HCl (Vitamin B6) 100 mg DAILY PO Last administered on 11/03/16 09:16 ; Admin Dose 100 MG; Start 10/23/16 at 09:00 Tramadol HCl (Ultram) 50 mg Q8H PRN PO PRN; Start 10/23/16 at 02:00 Atorvastatin Calcium (Lipitor) 40 mg DAILY PO Last administered on 11/03/16 09: 16; Admin Dose 40 MG; Start 10/23/16 at 09:00 Morphine Sulfate (morphine) 2 mg Q4H PRN IV PAIN Last administered on at 01:00; Admin Dose 2 MG; Start 10/24/16 at 01:00 Aspirin (Aspirin) 81 mg DAILY PO Last administered on 11/03/16 09:15; Admin Dose 81 MG; Start 10/25/16 at 09:00 Lisinopril (Zestril) 5 mg BID PO Last administered on 11/02/16 20:38; Admin Dose 5 MG; Start 10/25/16 at 09:00 Hydralazine HCl (Apresoline) 10 mg Q6H PRN IV sbp>160mmhg Last administered on 10/28/16 16:34; Admin Dose 10 MG; Start 10/25/16 at 00:00 Cinacalcet (Sensipar) 90 mg DAILY PO Last administered on 11/03/16 09:17; Admin Dose 90 MG; Start 11/02/16 at 09:00 Ranitidine HCl (Zantac) 150 mg DAILY PO Last administered on 11/03/16 09:16; Admin Dose 150 MG; Start 11/03/16 at 09:00 AUGUSTA VALERIO MD Nov 03, 2016 12:47
--- NOTE | 2016-11-03 14:46 | PN ---
Date/Time of Note Date/Time of Note DATE: 11/03/16 TIME: 14:42 Assessment/Plan VTE Prophylaxis VTE Prophylaxis Intervention: SCD's Lines/Catheters [facility]from [facility] Urinary Cath still in place: No Assessment/Plan Chief Complaint/Hosp Course Assessment and plan 1. Dizziness and syncope suspect secondary to acute CVA. Continue antiplatelet therapy as well as statin medication. Of note patient did have MRI of the brain on 10/15/2016 that did show findings compatible with chronic hemorrhage centered in the right thalamus extending into the right [place] radiata. There is also seen chronic right frontal lacunar infarct. Neurologist following. Continue on antiplatelet therapy as well as physical therapy services. Continue conservative management 2. 2. Non-ST elevated myocardial infarction. Likely demand ischemia. Continue antibiotic therapy. Cardiologists following. 3. Essential hypertension. Continue on anti-hypertensives and adjust as needed. 4. End-stage renal disease. Continue on dialysis. Monitor renal panel. 5. 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 Continue physical therapy. 6. Anemia of chronic disease. H&H remained stable. We'll monitor. 7. History of major depression. Continue on Paxil 8. History of dyslipidemia. Continue on statin medication 9. HYperkalemia. cont with HD. monitor level. provide with kayexalate as needed Disposition and plan: Discharge planning. Still Awaiting placement for senior living facility. .cont hd Discussed plan of care with Problems: Subjective 24 Hr Interval Summary Free Text/Dictation comfortable. no specific complaints Exam/Review of Systems Vital Signs Vitals Vital Signs Date Time Temp Pulse Resp B/P Pulse Ox O2 Delivery O2 Flow Rate FiO2 11/03/16 07:59 97.9 67 18 114/56 100 Intake and Output 11/02/16 11/02/16 11/03/16 15:00 23:00 07:00 Intake Total 500 ml 800 ml 620 ml Output Total 2000 ml 1500 ml Balance -1500 ml -700 ml 620 ml Exam General: No acute signs or symptoms of distress Eyes: pupils equal round, Anicteric sclera Neck: Supple nontender, no JVD Cardiac: S1, S2 auscultated, regular rhythm and rate Pulmonary: No coarse rhonchi or breathing auscultated GI: Abdomen soft nontender nondistended, bowel sounds active Extremities: No edema bilateral lower extremities Skin: Clean dry and intact Neurologic: Alert to person place and time and situation Results Result Diagram: 10/30/16 0515 11/03/16 0428 Results 24 hrs Laboratory Tests Test 11/03/16 04:28 Anion Gap 20 H Blood Urea Nitrogen 52 H Calcium Level 10.0 Carbon Dioxide Level 33 H Chloride Level 94 L Creatinine 5.59 #H Glucose Level 93 Potassium Level 4.8 Sodium Level 142 Medications Medications Current Medications Amantadine HCl (Symmetrel) 100 mg DAILY PO Last administered on 11/03/16 10:38 ; Admin Dose 100 MG; Start 10/23/16 at 09:00 Docusate Sodium (Colace) 100 mg DAILY PO Last administered on 11/03/16 09:16; Admin Dose 100 MG; Start 10/23/16 at 09:00 Folic Acid (Folic Acid) 1 mg DAILY PO Last administered on 11/03/16 09:17; Admin Dose 1 MG; Start 10/23/16 at 09:00 Multivit/Ca Carb/ B Cmplx/FA/Prenat (Germaine-Nae) 1 tab DAILY PO Last administered on 11/03/16 09:16; Admin Dose 1 TAB; Start 10/23/16 at 09:00 Nifedipine (Procardia Xl) 60 mg DAILY PO Last administered on 11/03/16 09:16; Admin Dose 60 MG; Start 10/23/16 at 09:00 Paroxetine HCl (Paxil) 10 mg DAILY PO Last administered on 11/03/16 09:16; Admin Dose 10 MG; Start 10/23/16 at 09:00 Pyridoxine HCl (Vitamin B6) 100 mg DAILY PO Last administered on 11/03/16 09:16 ; Admin Dose 100 MG; Start 10/23/16 at 09:00 Tramadol HCl (Ultram) 50 mg Q8H PRN PO PRN; Start 10/23/16 at 02:00 Atorvastatin Calcium (Lipitor) 40 mg DAILY PO Last administered on 11/03/16 09: 16; Admin Dose 40 MG; Start 10/23/16 at 09:00 Morphine Sulfate (morphine) 2 mg Q4H PRN IV PAIN Last administered on at 01:00; Admin Dose 2 MG; Start 10/24/16 at 01:00 Aspirin (Aspirin) 81 mg DAILY PO Last administered on 11/03/16 09:15; Admin Dose 81 MG; Start 10/25/16 at 09:00 Lisinopril (Zestril) 5 mg BID PO Last administered on 11/02/16 20:38; Admin Dose 5 MG; Start 10/25/16 at 09:00 Hydralazine HCl (Apresoline) 10 mg Q6H PRN IV sbp>160mmhg Last administered on 10/28/16 16:34; Admin Dose 10 MG; Start 10/25/16 at 00:00 Cinacalcet (Sensipar) 90 mg DAILY PO Last administered on 11/03/16 09:17; Admin Dose 90 MG; Start 11/02/16 at 09:00 Ranitidine HCl (Zantac) 150 mg DAILY PO Last administered on 11/03/16 09:16; Admin Dose 150 MG; Start 11/03/16 at 09:00 SANTO KIMBROUGH Nov 03, 2016 14:46
[2016-11-03 21:02] VITALS: BP 118/68; RESP 18
[2016-11-04] VITALS (11 sets, daily range): BP systolic 107–150; BP diastolic 57–82; PULSE 70–111; RESP 18–19
[2016-11-04 06:45] LABS: CREATININE 7.36 mg/dl (0.61-1.24)
[2016-11-04 06:46] LABS: CALCIUM 10.2 mg/dl (8.4-10.2)
[2016-11-04 07:01] LABS: POTASSIUM 6.6 mmol/L (3.5-5.1)
[2016-11-04] MEDS: SEVELAMER 800 MG TAB PO SCH ×3 (07:35→16:56)
[2016-11-04] MEDS: DOCUSATE SODIUM 100 MG CAP PO SCH ×2 (08:44→12:15)
[2016-11-04] MEDS: ATORVASTATIN 40 MG TAB PO SCH ×2 (08:44→12:16)
[2016-11-04] MEDS: PAROXETINE 10 MG TAB PO SCH ×2 (08:44→12:16)
[2016-11-04] MEDS: ASPIRIN 81 MG TAB PO SCH ×2 (08:44→12:16)
[2016-11-04] MEDS: FOLIC ACID 1 MG TAB PO SCH ×2 (08:44→12:16)
[2016-11-04] MEDS: CINACALCET 30 MG TAB PO SCH ×2 (08:45→12:17)
[2016-11-04] MEDS: MULTIVIT/CA CARB/B CMPLX/FA TAB PO SCH ×2 (08:45→12:16)
[2016-11-04] MEDS: AMANTADINE 100 MG CAP PO SCH ×2 (08:45→12:17)
[2016-11-04] MEDS: NIFEdipine (XL) 60 MG TAB PO SCH (08:45)
[2016-11-04] MEDS: LISINOPRIL 5 MG TAB PO SCH ×2 (08:46→20:11)
[2016-11-04] MEDS: RANITIDINE 150 MG TAB PO SCH ×2 (08:46→12:17)
[2016-11-04] MEDS: PYRIDOXINE 50 MG TAB PO SCH ×2 (08:46→12:17)
--- NOTE | 2016-11-04 13:35 | PN ---
Date/Time of Note Date/Time of Note DATE: 11/04/16 TIME: 13:34 Assessment/Plan VTE Prophylaxis VTE Prophylaxis Intervention: SCD's Lines/Catheters IV [facility] Type [facility]from [facility] Urinary Cath still in place: No Assessment/Plan Chief Complaint/Hosp Course Assessment and plan 1. Dizziness and syncope suspect secondary to acute CVA. Continue antiplatelet therapy as well as statin medication. Of note patient did have MRI of the brain on 10/15/2016 that did show findings compatible with chronic hemorrhage centered in the right thalamus extending into the right [place] radiata. There is also seen chronic right frontal lacunar infarct. Neurologist following. Continue on antiplatelet therapy as well as physical therapy services. Continue conservative management 2. 2. Non-ST elevated myocardial infarction. Likely demand ischemia. Continue antibiotic therapy. Cardiologists following. 3. Essential hypertension. Continue on anti-hypertensives and adjust as needed. 4. End-stage renal disease. Continue on dialysis. Monitor renal panel. 5. 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 Continue physical therapy. 6. Anemia of chronic disease. H&H remained stable. We'll monitor. 7. History of major depression. Continue on Paxil 8. History of dyslipidemia. Continue on statin medication 9. HYperkalemia. cont with HD. monitor level. provide with kayexalate as needed Disposition and plan: Discharge planning. Still Awaiting placement for [facility] facility. .cont hd Discussed plan of care with Problems: Subjective 24 Hr Interval Summary Free Text/Dictation resting at this time. no s/s of distress Exam/Review of Systems Vital Signs Vitals Vital Signs Date Time Temp Pulse Resp B/P Pulse Ox O2 Delivery O2 Flow Rate FiO2 11/04/16 12:24 70 107/69 11/04/16 11:15 17 11/04/16 07:39 98.2 95 Intake and Output 11/03/16 11/03/16 11/04/16 15:00 23:00 07:00 Intake Total 1280 ml 700 ml Output Total 0 ml Balance 1280 ml 700 ml Exam General: No acute signs or symptoms of distress Eyes: pupils equal round, Anicteric sclera Neck: Supple nontender, no JVD Cardiac: S1, S2 auscultated, regular rhythm and rate Pulmonary: No coarse rhonchi or breathing auscultated GI: Abdomen soft nontender nondistended, bowel sounds active Extremities: No edema bilateral lower extremities Skin: Clean dry and intact Neurologic: Alert to person place and time and situation Results Result Diagram: 11/04/16 0615 Results 24 hrs Laboratory Tests Test 11/04/16 06:15 Anion Gap 22 H Blood Urea Nitrogen 77 H Calcium Level 10.2 Carbon Dioxide Level 29 Chloride Level 95 L Creatinine 7.36 H Glucose Level 84 Potassium Level 6.6 *H Sodium Level 139 Medications Medications Current Medications Amantadine HCl (Symmetrel) 100 mg DAILY PO Last administered on 11/04/16 12:17 ; Admin Dose 100 MG; Start 10/23/16 at 09:00 Docusate Sodium (Colace) 100 mg DAILY PO Last administered on 11/04/16 12:15; Admin Dose 100 MG; Start 10/23/16 at 09:00 Folic Acid (Folic Acid) 1 mg DAILY PO Last administered on 11/04/16 12:16; Admin Dose 1 MG; Start 10/23/16 at 09:00 Multivit/Ca Carb/ B Cmplx/FA/Prenat (Germaine-Nae) 1 tab DAILY PO Last administered on 11/04/16 12:16; Admin Dose 1 TAB; Start 10/23/16 at 09:00 Nifedipine (Procardia Xl) 60 mg DAILY PO Last administered on 11/03/16 09:16; Admin Dose 60 MG; Start 10/23/16 at 09:00 Paroxetine HCl (Paxil) 10 mg DAILY PO Last administered on 11/04/16 12:16; Admin Dose 10 MG; Start 10/23/16 at 09:00 Pyridoxine HCl (Vitamin B6) 100 mg DAILY PO Last administered on 11/04/16 12:17 ; Admin Dose 100 MG; Start 10/23/16 at 09:00 Tramadol HCl (Ultram) 50 mg Q8H PRN PO PRN; Start 10/23/16 at 02:00 Atorvastatin Calcium (Lipitor) 40 mg DAILY PO Last administered on 11/04/16 12: 16; Admin Dose 40 MG; Start 10/23/16 at 09:00 Morphine Sulfate (morphine) 2 mg Q4H PRN IV PAIN Last administered on at 01:00; Admin Dose 2 MG; Start 10/24/16 at 01:00 Aspirin (Aspirin) 81 mg DAILY PO Last administered on 11/04/16 12:16; Admin Dose 81 MG; Start 10/25/16 at 09:00 Lisinopril (Zestril) 5 mg BID PO Last administered on 11/02/16 20:38; Admin Dose 5 MG; Start 10/25/16 at 09:00 Hydralazine HCl (Apresoline) 10 mg Q6H PRN IV sbp>160mmhg Last administered on 10/28/16 16:34; Admin Dose 10 MG; Start 10/25/16 at 00:00 Cinacalcet (Sensipar) 90 mg DAILY PO Last administered on 11/04/16 12:17; Admin Dose 90 MG; Start 11/02/16 at 09:00 Ranitidine HCl (Zantac) 150 mg DAILY PO Last administered on 11/04/16 12:17; Admin Dose 150 MG; Start 11/03/16 at 09:00 SANTO KIMBROUGH Nov 04, 2016 13:34
--- NOTE | 2016-11-04 16:41 | CONS ---
Date/Time of Note Date/Time of Note DATE: 11/04/16 TIME: 16:40 Assessment/Plan Assessment/Plan Chief Complaint/Hosp Course IMPRESSION: A 46-year-old unfortunate male with the followin. HTN 2. [id number] myocardial infarction. 3. 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 4. HX [employer] 5. End-stage renal disease, on hemodialysis. 6. Chronic debility from previous cerebrovascular accident. 7. Anemia of chronic kidney disease with associated leukopenia. 8. Chronic depression. 9 HYPERCALCEMIA hx 10 hyperkalemia PLAN HD am dc planning per pcp sensipar HD Problems: Consultation Date/Type/Reason Admit Date/Time Oct 23, 2016 at 14:38 Initial Consult Date 10/23/16 Type of Consultation: NEPHROLOGY Referring Provider: KIA FREEDMAN 24 HR Interval Summary Subjective hx not possible: other (seen on hd) Exam/Review of Systems Vital Signs Vitals Vital Signs Date Time Temp Pulse Resp B/P Pulse Ox O2 Delivery O2 Flow Rate FiO2 11/04/16 12:24 70 107/69 11/04/16 11:15 17 11/04/16 07:39 98.2 95 Intake and Output 11/03/16 11/03/16 11/04/16 15:00 23:00 07:00 Intake Total 1280 ml 700 ml Output Total 0 ml Balance 1280 ml 700 ml Exam Respiratory: clear to auscultation Cardiovascular: regular rate and rhythm Gastrointestinal: soft Musculoskeletal: nl extremities to inspection Extremities: normal pulses Results Result Diagram: 11/04/16 1305 Results 24 hrs Laboratory Tests Test 11/04/16 06:15 11/04/16 13:05 Anion Gap 22 H Blood Urea Nitrogen 77 H Calcium Level 10.2 Carbon Dioxide Level 29 Chloride Level 95 L Creatinine 7.36 H Glucose Level 84 Potassium Level 6.6 *H 3.5 # Sodium Level 139 Medications Medications Current Medications Amantadine HCl (Symmetrel) 100 mg DAILY PO Last administered on 11/04/16 12:17 ; Admin Dose 100 MG; Start 10/23/16 at 09:00 Docusate Sodium (Colace) 100 mg DAILY PO Last administered on 11/04/16 12:15; Admin Dose 100 MG; Start 10/23/16 at 09:00 Folic Acid (Folic Acid) 1 mg DAILY PO Last administered on 11/04/16 12:16; Admin Dose 1 MG; Start 10/23/16 at 09:00 Multivit/Ca Carb/ B Cmplx/FA/Prenat (Germaine-Nae) 1 tab DAILY PO Last administered on 11/04/16 12:16; Admin Dose 1 TAB; Start 10/23/16 at 09:00 Nifedipine (Procardia Xl) 60 mg DAILY PO Last administered on 11/03/16 09:16; Admin Dose 60 MG; Start 10/23/16 at 09:00 Paroxetine HCl (Paxil) 10 mg DAILY PO Last administered on 11/04/16 12:16; Admin Dose 10 MG; Start 10/23/16 at 09:00 Pyridoxine HCl (Vitamin B6) 100 mg DAILY PO Last administered on 11/04/16 12:17 ; Admin Dose 100 MG; Start 10/23/16 at 09:00 Tramadol HCl (Ultram) 50 mg Q8H PRN PO PRN; Start 10/23/16 at 02:00 Atorvastatin Calcium (Lipitor) 40 mg DAILY PO Last administered on 11/04/16 12: 16; Admin Dose 40 MG; Start 10/23/16 at 09:00 Morphine Sulfate (morphine) 2 mg Q4H PRN IV PAIN Last administered on at 01:00; Admin Dose 2 MG; Start 10/24/16 at 01:00 Aspirin (Aspirin) 81 mg DAILY PO Last administered on 11/04/16 12:16; Admin Dose 81 MG; Start 10/25/16 at 09:00 Lisinopril (Zestril) 5 mg BID PO Last administered on 11/02/16 20:38; Admin Dose 5 MG; Start 10/25/16 at 09:00 Hydralazine HCl (Apresoline) 10 mg Q6H PRN IV sbp>160mmhg Last administered on 10/28/16 16:34; Admin Dose 10 MG; Start 10/25/16 at 00:00 Cinacalcet (Sensipar) 90 mg DAILY PO Last administered on 11/04/16 12:17; Admin Dose 90 MG; Start 11/02/16 at 09:00 Ranitidine HCl (Zantac) 150 mg DAILY PO Last administered on 1/9/17at 12:17; Admin Dose 150 MG; Start 11/03/16 at 09:00 DEEPAK BERGER MD Nov 04, 2016 16:41
[2016-11-04] MEDS: morphine 2 MG INJ IV PRN (20:12)
[2016-11-05 06:23] LABS: POTASSIUM 4.8 mmol/L (3.5-5.1)
[2016-11-05 06:26] LABS: CALCIUM 9.6 mg/dl (8.4-10.2); CREATININE 5.16 mg/dl (0.61-1.24)
[2016-11-05 08:03] VITALS: BP 148/90; RESP 16
[2016-11-05] MEDS: ATORVASTATIN 40 MG TAB PO SCH (08:05)
[2016-11-05] MEDS: RANITIDINE 150 MG TAB PO SCH (08:05)
[2016-11-05] MEDS: SEVELAMER 800 MG TAB PO SCH ×3 (08:05→17:16)
[2016-11-05] MEDS: PYRIDOXINE 50 MG TAB PO SCH (08:05)
[2016-11-05] MEDS: AMANTADINE 100 MG CAP PO SCH (08:05)
[2016-11-05] MEDS: ASPIRIN 81 MG TAB PO SCH (08:05)
[2016-11-05] MEDS: DOCUSATE SODIUM 100 MG CAP PO SCH (08:05)
[2016-11-05] MEDS: FOLIC ACID 1 MG TAB PO SCH (08:05)
[2016-11-05] MEDS: CINACALCET 30 MG TAB PO SCH (08:05)
[2016-11-05] MEDS: PAROXETINE 10 MG TAB PO SCH (08:05)
[2016-11-05] MEDS: MULTIVIT/CA CARB/B CMPLX/FA TAB PO SCH (08:06)
[2016-11-05] MEDS: LISINOPRIL 5 MG TAB PO SCH ×2 (08:07→20:36)
[2016-11-05] MEDS: NIFEdipine (XL) 60 MG TAB PO SCH (08:07)
--- NOTE | 2016-11-05 14:18 | PN ---
Date/Time of Note Date/Time of Note DATE: 11/05/16 TIME: 14:10 Assessment/Plan VTE Prophylaxis VTE Prophylaxis Intervention: SCD's Lines/Catheters [facility]from [facility] Urinary Cath still in place: No Assessment/Plan Chief Complaint/Hosp Course Assessment and plan 1. Dizziness and syncope suspect secondary to acute CVA. Continue antiplatelet therapy as well as statin medication. Of note patient did have MRI of the brain on 10/15/2016 that did show findings compatible with chronic hemorrhage centered in the right thalamus extending into the right [place] radiata. There is also seen chronic right frontal lacunar infarct. Neurologist following. Continue on antiplatelet therapy as well as physical therapy services. Continue conservative management 2. 2. Non-ST elevated myocardial infarction. Likely demand ischemia. Continue antibiotic therapy. Cardiologists following. 3. Essential hypertension. Continue on anti-hypertensives and adjust as needed. 4. End-stage renal disease. Continue on dialysis. Monitor renal panel. 5. 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 Continue physical therapy. 6. Anemia of chronic disease. H&H remained stable. We'll monitor. 7. History of major depression. Continue on Paxil 8. History of dyslipidemia. Continue on statin medication 9. HYperkalemia. cont with HD. monitor level. provide with kayexalate as needed Disposition and plan: Discharge planning. Still Awaiting placement for [facility] facility. .cont hd. order physical therapy Discussed plan of care with Problems: Subjective 24 Hr Interval Summary Free Text/Dictation Comfortable at this time. No specific complaints Exam/Review of Systems Vital Signs Vitals Vital Signs Date Time Temp Pulse Resp B/P Pulse Ox O2 Delivery O2 Flow Rate FiO2 11/05/16 08:03 97.5 50 16 148/90 100 Intake and Output 11/04/16 11/04/16 11/05/16 15:00 23:00 07:00 Intake Total 500 ml 960 ml 300 ml Output Total 2341 ml 0 ml Balance -1841 ml 960 ml 300 ml Exam General: No acute signs or symptoms of distress Eyes: pupils equal round, Anicteric sclera Neck: Supple nontender, no JVD Cardiac: S1, S2 auscultated, regular rhythm and rate Pulmonary: No coarse rhonchi or breathing auscultated GI: Abdomen soft nontender nondistended, bowel sounds active Extremities: No edema bilateral lower extremities Skin: Clean dry and intact Neurologic: Alert to person place and time and situation Results Result Diagram: 11/05/16 0515 Results 24 hrs Laboratory Tests Test 11/05/16 05:15 Anion Gap 20 H Blood Urea Nitrogen 45 #H Calcium Level 9.6 Carbon Dioxide Level 34 H Chloride Level 92 L Creatinine 5.16 #H Glucose Level 93 Potassium Level 4.8 Sodium Level 141 Medications Medications Current Medications Amantadine HCl (Symmetrel) 100 mg DAILY PO Last administered on 11/05/16 08:05 ; Admin Dose 100 MG; Start 10/23/16 at 09:00 Docusate Sodium (Colace) 100 mg DAILY PO Last administered on 11/05/16 08:05; Admin Dose 100 MG; Start 10/23/16 at 09:00 Folic Acid (Folic Acid) 1 mg DAILY PO Last administered on 11/05/16 08:05; Admin Dose 1 MG; Start 10/23/16 at 09:00 Multivit/Ca Carb/ B Cmplx/FA/Prenat (Germaine-Nae) 1 tab DAILY PO Last administered on 11/05/16 08:06; Admin Dose 1 TAB; Start 10/23/16 at 09:00 Nifedipine (Procardia Xl) 60 mg DAILY PO Last administered on 11/05/16 08:07; Admin Dose 60 MG; Start 10/23/16 at 09:00 Paroxetine HCl (Paxil) 10 mg DAILY PO Last administered on 11/05/16 08:05; Admin Dose 10 MG; Start 10/23/16 at 09:00 Pyridoxine HCl (Vitamin B6) 100 mg DAILY PO Last administered on 11/05/16 08: 05; Admin Dose 100 MG; Start 10/23/16 at 09:00 Tramadol HCl (Ultram) 50 mg Q8H PRN PO PRN; Start 10/23/16 at 02:00 Atorvastatin Calcium (Lipitor) 40 mg DAILY PO Last administered on 11/05/16 08 :05; Admin Dose 40 MG; Start 10/23/16 at 09:00 Morphine Sulfate (morphine) 2 mg Q4H PRN IV PAIN Last administered on 11/04/16 20:12; Admin Dose 2 MG; Start 10/24/16 at 01:00 Aspirin (Aspirin) 81 mg DAILY PO Last administered on 11/05/16 08:05; Admin Dose 81 MG; Start 10/25/16 at 09:00 Lisinopril (Zestril) 5 mg BID PO Last administered on 11/05/16 08:07; Admin Dose 5 MG; Start 10/25/16 at 09:00 Hydralazine HCl (Apresoline) 10 mg Q6H PRN IV sbp>160mmhg Last administered on 10/28/16 16:34; Admin Dose 10 MG; Start 10/25/16 at 00:00 Cinacalcet (Sensipar) 90 mg DAILY PO Last administered on 11/05/16 08:05; Admin Dose 90 MG; Start 11/02/16 at 09:00 Ranitidine HCl (Zantac) 150 mg DAILY PO Last administered on 11/05/16 08:05; Admin Dose 150 MG; Start 11/03/16 at 09:00 SANTO KIMBROUGH Nov 05, 2016 14:18
--- NOTE | 2016-11-05 17:03 | CONS ---
Date/Time of Note Date/Time of Note DATE: 11/05/16 TIME: 17:02 Assessment/Plan Assessment/Plan Chief Complaint/Hosp Course IMPRESSION: A 46-year-old unfortunate male with the followin. HTN 2. [id number] myocardial infarction. 3. 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 4. 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 End-stage renal disease, on hemodialysis. 6. Chronic debility from previous cerebrovascular accident. 7. Anemia of chronic kidney disease with associated leukopenia. 8. Chronic depression. 9 HYPERCALCEMIA hx 10 hyperkalemia hx PLAN HD am dc planning per pcp [facility] HD Problems: Consultation Date/Type/Reason Admit Date/Time Oct 23, 2016 at 14:38 Initial Consult Date 10/23/16 Type of Consultation: NEPHROLOGY Referring Provider: KIA FREEDMAN 24 HR Interval Summary Constitutional: no complaints Exam/Review of Systems Vital Signs Vitals Vital Signs Date Time Temp Pulse Resp B/P Pulse Ox O2 Delivery O2 Flow Rate FiO2 11/05/16 08:03 97.5 50 16 148/90 100 Intake and Output 11/04/16 11/04/16 11/05/16 15:00 23:00 07:00 Intake Total 500 ml 960 ml 300 ml Output Total 2341 ml 0 ml Balance -1841 ml 960 ml 300 ml Exam Neck: supple Respiratory: clear to auscultation Cardiovascular: regular rate and rhythm Gastrointestinal: soft Musculoskeletal: nl extremities to inspection Extremities: normal pulses Results Result Diagram: 11/05/16 0515 Results 24 hrs Laboratory Tests Test 11/05/16 05:15 Anion Gap 20 H Blood Urea Nitrogen 45 #H Calcium Level 9.6 Carbon Dioxide Level 34 H Chloride Level 92 L Creatinine 5.16 #H Glucose Level 93 Potassium Level 4.8 Sodium Level 141 Medications Medications Current Medications Amantadine HCl (Symmetrel) 100 mg DAILY PO Last administered on 11/05/16 08:05 ; Admin Dose 100 MG; Start 10/23/16 at 09:00 Docusate Sodium (Colace) 100 mg DAILY PO Last administered on 11/05/16 08:05; Admin Dose 100 MG; Start 10/23/16 at 09:00 Folic Acid (Folic Acid) 1 mg DAILY PO Last administered on 11/05/16 08:05; Admin Dose 1 MG; Start 10/23/16 at 09:00 Multivit/Ca Carb/ B Cmplx/FA/Prenat (Germaine-Nae) 1 tab DAILY PO Last administered on 11/05/16 08:06; Admin Dose 1 TAB; Start 10/23/16 at 09:00 Nifedipine (Procardia Xl) 60 mg DAILY PO Last administered on 11/05/16 08:07; Admin Dose 60 MG; Start 10/23/16 at 09:00 Paroxetine HCl (Paxil) 10 mg DAILY PO Last administered on 11/05/16 08:05; Admin Dose 10 MG; Start 10/23/16 at 09:00 Pyridoxine HCl (Vitamin B6) 100 mg DAILY PO Last administered on 11/05/16 08: 05; Admin Dose 100 MG; Start 10/23/16 at 09:00 Tramadol HCl (Ultram) 50 mg Q8H PRN PO PRN; Start 10/23/16 at 02:00 Atorvastatin Calcium (Lipitor) 40 mg DAILY PO Last administered on 11/05/16 08 :05; Admin Dose 40 MG; Start 10/23/16 at 09:00 Morphine Sulfate (morphine) 2 mg Q4H PRN IV PAIN Last administered on 11/04/16 20:12; Admin Dose 2 MG; Start 10/24/16 at 01:00 Aspirin (Aspirin) 81 mg DAILY PO Last administered on 11/05/16 08:05; Admin Dose 81 MG; Start 10/25/16 at 09:00 Lisinopril (Zestril) 5 mg BID PO Last administered on 11/05/16 08:07; Admin Dose 5 MG; Start 10/25/16 at 09:00 Hydralazine HCl (Apresoline) 10 mg Q6H PRN IV sbp>160mmhg Last administered on 10/28/16 16:34; Admin Dose 10 MG; Start 10/25/16 at 00:00 Cinacalcet (Sensipar) 90 mg DAILY PO Last administered on 11/05/16 08:05; Admin Dose 90 MG; Start 11/02/16 at 09:00 Ranitidine HCl (Zantac) 150 mg DAILY PO Last administered on 11/05/16 08:05; Admin Dose 150 MG; Start 11/03/16 at 09:00 DEEPAK BERGER MD Nov 05, 2016 17:03
[2016-11-05 20:25] VITALS: BP 123/96; RESP 20
[2016-11-06] VITALS (10 sets, daily range): BP systolic 103–137; BP diastolic 63–85; PULSE 55–115; RESP 17–18
[2016-11-06 06:00] LABS: POTASSIUM 5.5 mmol/L (3.5-5.1)
[2016-11-06 06:03] LABS: CREATININE 7.48 mg/dl (0.61-1.24)
[2016-11-06 06:04] LABS: CALCIUM 9.7 mg/dl (8.4-10.2)
[2016-11-06] MEDS: SEVELAMER 800 MG TAB PO SCH ×3 (08:17→17:33)
[2016-11-06] MEDS: ASPIRIN 81 MG TAB PO SCH (08:18)
[2016-11-06] MEDS: CINACALCET 30 MG TAB PO SCH (08:18)
[2016-11-06] MEDS: NIFEdipine (XL) 60 MG TAB PO SCH (08:18)
[2016-11-06] MEDS: FOLIC ACID 1 MG TAB PO SCH (08:18)
[2016-11-06] MEDS: DOCUSATE SODIUM 100 MG CAP PO SCH (08:18)
[2016-11-06] MEDS: ATORVASTATIN 40 MG TAB PO SCH (08:18)
[2016-11-06] MEDS: LISINOPRIL 5 MG TAB PO SCH (08:18)
[2016-11-06] MEDS: PAROXETINE 10 MG TAB PO SCH (08:19)
[2016-11-06] MEDS: RANITIDINE 150 MG TAB PO SCH (08:19)
[2016-11-06] MEDS: AMANTADINE 100 MG CAP PO SCH (08:19)
[2016-11-06] MEDS: PYRIDOXINE 50 MG TAB PO SCH (08:19)
[2016-11-06] MEDS: MULTIVIT/CA CARB/B CMPLX/FA TAB PO SCH (09:33)
[2016-11-06] MEDS ORDERED: ALBUMIN HUMAN 25% 100 ML IV PRN (10:30)
--- NOTE | 2016-11-06 14:18 | PN ---
Date/Time of Note Date/Time of Note DATE: 11/06/16 TIME: 14:14 Assessment/Plan VTE Prophylaxis VTE Prophylaxis Intervention: SCD's Lines/Catheters [facility] Saline Lock Urinary Cath still in place: No Assessment/Plan Chief Complaint/Hosp Course Assessment and plan 1. Dizziness and syncope suspect secondary to acute CVA. Continue antiplatelet therapy as well as statin medication. Of note patient did have MRI of the brain on 10/15/2016 that did show findings compatible with chronic hemorrhage centered in the right thalamus extending into the right sanford radiata. There is also seen chronic right frontal lacunar infarct. Neurologist following. Continue on antiplatelet therapy as well as physical therapy services. Continue conservative management 2. 2. Non-ST elevated myocardial infarction. Likely demand ischemia. Continue antibiotic therapy. Cardiologists following. 3. Essential hypertension. Continue on anti-hypertensives and adjust as needed. 4. End-stage renal disease. Continue on dialysis. Monitor renal panel. 5. 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 Continue physical therapy. 6. Anemia of chronic disease. H&H remained stable. We'll monitor. 7. History of major depression. Continue on Paxil 8. History of dyslipidemia. Continue on statin medication 9. HYperkalemia. cont with HD. monitor level. provide with kayexalate as needed Disposition and plan: Discharge planning. Still Awaiting placement for intermediate facility. .cont hd. cont physical therapy. check AM labs Discussed plan of care with Problems: Subjective 24 Hr Interval Summary Free Text/Dictation comfortable at present. no s/s of distress Exam/Review of Systems Vital Signs Vitals Vital Signs Date Time Temp Pulse Resp B/P Pulse Ox O2 Delivery O2 Flow Rate FiO2 11/06/16 12:55 73 11/06/16 09:50 16 11/06/16 07:52 97.6 130/77 100 Intake and Output 11/05/16 11/05/16 11/06/16 14:59 22:59 06:59 Intake Total 920 ml 250 ml Balance 920 ml 250 ml Exam General: No acute signs or symptoms of distress Eyes: pupils equal round, Anicteric sclera Neck: Supple nontender, no JVD Cardiac: S1, S2 auscultated, regular rhythm and rate Pulmonary: No coarse rhonchi or breathing auscultated GI: Abdomen soft nontender nondistended, bowel sounds active Extremities: No edema bilateral lower extremities Skin: Clean dry and intact Neurologic: Alert to person place and time and situation Results Result Diagram: 11/06/16 0505 Results 24 hrs Laboratory Tests Test 11/06/16 05:05 Anion Gap 22 H Blood Urea Nitrogen 73 H Calcium Level 9.7 Carbon Dioxide Level 29 Chloride Level 93 L Creatinine 7.48 #H Glucose Level 90 Potassium Level 5.5 H Sodium Level 138 Medications Medications Current Medications Amantadine HCl (Symmetrel) 100 mg DAILY PO Last administered on 11/06/16 08:19 ; Admin Dose 100 MG; Start 10/23/16 at 09:00 Docusate Sodium (Colace) 100 mg DAILY PO Last administered on 11/06/16 08:18; Admin Dose 100 MG; Start 10/23/16 at 09:00 Folic Acid (Folic Acid) 1 mg DAILY PO Last administered on 11/06/16 08:18; Admin Dose 1 MG; Start 10/23/16 at 09:00 Multivit/Ca Carb/ B Cmplx/FA/Prenat (Germaine-Nae) 1 tab DAILY PO Last administered on 11/06/16 09:33; Admin Dose 1 TAB; Start 10/23/16 at 09:00 Nifedipine (Procardia Xl) 60 mg DAILY PO Last administered on 11/05/16 08:07; Admin Dose 60 MG; Start 10/23/16 at 09:00 Paroxetine HCl (Paxil) 10 mg DAILY PO Last administered on 11/06/16 08:19; Admin Dose 10 MG; Start 10/23/16 at 09:00 Pyridoxine HCl (Vitamin B6) 100 mg DAILY PO Last administered on 11/06/16 08: 19; Admin Dose 100 MG; Start 10/23/16 at 09:00 Tramadol HCl (Ultram) 50 mg Q8H PRN PO PRN; Start 10/23/16 at 02:00 Atorvastatin Calcium (Lipitor) 40 mg DAILY PO Last administered on 11/06/16 08 :18; Admin Dose 40 MG; Start 10/23/16 at 09:00 Morphine Sulfate (morphine) 2 mg Q4H PRN IV PAIN Last administered on 11/04/16 20:12; Admin Dose 2 MG; Start 10/24/16 at 01:00 Aspirin (Aspirin) 81 mg DAILY PO Last administered on 11/06/16 08:18; Admin Dose 81 MG; Start 10/25/16 at 09:00 Hydralazine HCl (Apresoline) 10 mg Q6H PRN IV sbp>160mmhg Last administered on 10/28/16 16:34; Admin Dose 10 MG; Start 10/25/16 at 00:00 Cinacalcet (Sensipar) 90 mg DAILY PO Last administered on 11/06/16 08:18; Admin Dose 90 MG; Start 11/02/16 at 09:00 Ranitidine HCl (Zantac) 150 mg DAILY PO Last administered on 11/06/16 08:19; Admin Dose 150 MG; Start 11/03/16 at 09:00 Losartan Potassium (Cozaar) 25 mg DAILY PO ; Start 11/07/16 at 09:00 SANTO KIMBROUGH Nov 06, 2016 14:17
--- NOTE | 2016-11-06 21:25 | CONS ---
Date/Time of Note Date/Time of Note DATE: 11/06/16 TIME: 21:24 Assessment/Plan Assessment/Plan Chief Complaint/Hosp Course IMPRESSION: A 46-year-old unfortunate male with the followin. HTN 2. [id number] myocardial infarction. 3. 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 End-stage renal disease, on hemodialysis. 6. Chronic debility from previous cerebrovascular accident. 7. Anemia of chronic kidney disease with associated leukopenia. 8. Chronic depression. 9 HYPERCALCEMIA hx 10 hyperkalemia hx PLAN HD am dc planning per pcp [facility] HD dc [place] Problems: Consultation Date/Type/Reason Admit Date/Time Oct 23, 2016 at 14:38 Initial Consult Date 10/23/16 Type of Consultation: NEPHROLOGY Referring Provider: KIA FREEDMAN 24 HR Interval Summary Constitutional: no complaints Exam/Review of Systems Vital Signs Vitals Vital Signs Date Time Temp Pulse Resp B/P Pulse Ox O2 Delivery O2 Flow Rate FiO2 11/06/16 20:26 98.8 79 17 129/84 98 Intake and Output 11/05/16 11/05/16 11/06/16 15:00 23:00 07:00 Intake Total 920 ml 250 ml Balance 920 ml 250 ml Exam ENMT: nl external ears & nose Neck: supple Respiratory: clear to auscultation Cardiovascular: regular rate and rhythm Gastrointestinal: soft Results Result Diagram: 11/06/16 0505 Results 24 hrs Laboratory Tests Test 11/06/16 05:05 Anion Gap 22 H Blood Urea Nitrogen 73 H Calcium Level 9.7 Carbon Dioxide Level 29 Chloride Level 93 L Creatinine 7.48 #H Glucose Level 90 Potassium Level 5.5 H Sodium Level 138 Medications Medications Current Medications Amantadine HCl (Symmetrel) 100 mg DAILY PO Last administered on 11/06/16 08:19 ; Admin Dose 100 MG; Start 10/23/16 at 09:00 Docusate Sodium (Colace) 100 mg DAILY PO Last administered on 11/06/16 08:18; Admin Dose 100 MG; Start 10/23/16 at 09:00 Folic Acid (Folic Acid) 1 mg DAILY PO Last administered on 11/06/16 08:18; Admin Dose 1 MG; Start 10/23/16 at 09:00 Multivit/Ca Carb/ B Cmplx/FA/Prenat (Germaine-Nae) 1 tab DAILY PO Last administered on 11/06/16 09:33; Admin Dose 1 TAB; Start 10/23/16 at 09:00 Nifedipine (Procardia Xl) 60 mg DAILY PO Last administered on 11/05/16 08:07; Admin Dose 60 MG; Start 10/23/16 at 09:00 Paroxetine HCl (Paxil) 10 mg DAILY PO Last administered on 11/06/16 08:19; Admin Dose 10 MG; Start 10/23/16 at 09:00 Pyridoxine HCl (Vitamin B6) 100 mg DAILY PO Last administered on 11/06/16 08: 19; Admin Dose 100 MG; Start 10/23/16 at 09:00 Tramadol HCl (Ultram) 50 mg Q8H PRN PO PRN; Start 10/23/16 at 02:00 Atorvastatin Calcium (Lipitor) 40 mg DAILY PO Last administered on 11/06/16 08 :18; Admin Dose 40 MG; Start 10/23/16 at 09:00 Morphine Sulfate (morphine) 2 mg Q4H PRN IV PAIN Last administered on 11/04/16 20:12; Admin Dose 2 MG; Start 10/24/16 at 01:00 Aspirin (Aspirin) 81 mg DAILY PO Last administered on 11/06/16 08:18; Admin Dose 81 MG; Start 10/25/16 at 09:00 Hydralazine HCl (Apresoline) 10 mg Q6H PRN IV sbp>160mmhg Last administered on 10/28/16 16:34; Admin Dose 10 MG; Start 10/25/16 at 00:00 Cinacalcet (Sensipar) 90 mg DAILY PO Last administered on 11/06/16 08:18; Admin Dose 90 MG; Start 11/02/16 at 09:00 Ranitidine HCl (Zantac) 150 mg DAILY PO Last administered on 11/06/16 08:19; Admin Dose 150 MG; Start 11/03/16 at 09:00 Losartan Potassium (Cozaar) 25 mg DAILY PO ; Start 11/07/16 at 09:00 DEEPAK BERGER MD Nov 06, 2016 21:25
[2016-11-07 05:29] LABS: BASOPHIL # 0.1 10^3/ul (0.0-0.1); BASOPHILS % 1.5 % (0.0-2.0); EOSINOPHILS # 0.1 10^3/ul (0.0-0.5); EOSINOPHILS % 1.6 % (0.0-7.0); HEMATOCRIT 28.8 % (42.0-52.0); HEMOGLOBIN 9.8 g/dl (14.0-18.0); LYMPHOCYTES # 0.5 10^3/ul (0.8-2.9); LYMPHOCYTES % 13.5 % (15.0-51.0); MEAN CORPUSCULAR HEMOGLOBIN 32.1 pg (29.0-33.0); MEAN CORPUSCULAR HGB CONC 33.9 g/dl (32.0-37.0); MEAN CORPUSCULAR VOLUME 94.6 fl (82.0-101.0); MONOCYTE # 0.5 10^3/ul (0.3-0.9); MONOCYTES % 13.3 % (0.0-11.0); NEUTROPHIL # 2.5 10^3/ul (1.6-7.5); NEUTROPHILS % 70.1 % (39.0-77.0); PLATELET COUNT 220 10^3/UL (140-440); RED BLOOD COUNT 3.05 10^6/ul (4.70-6.10); RED CELL DISTRIBUTION WIDTH 13.3 % (11.5-14.5); UNCORRECTED WBC 3.6 10^3/ul (4.8-10.8); WHITE BLOOD COUNT 3.6 10^3/ul (4.8-10.8)
[2016-11-07 05:45] LABS: CONDITION 1
[2016-11-07 05:49] LABS: POTASSIUM 5.3 mmol/L (3.5-5.1)
[2016-11-07 05:52] LABS: CREATININE 5.16 mg/dl (0.61-1.24)
[2016-11-07 05:53] LABS: CALCIUM 9.3 mg/dl (8.4-10.2)
[2016-11-07 08:14] VITALS: BP 162/91; RESP 18
[2016-11-07] MEDS: AMANTADINE 100 MG CAP PO SCH (09:07)
[2016-11-07] MEDS: DOCUSATE SODIUM 100 MG CAP PO SCH (09:07)
[2016-11-07] MEDS: CINACALCET 30 MG TAB PO SCH (09:07)
[2016-11-07] MEDS: SEVELAMER 800 MG TAB PO SCH ×3 (09:07→17:08)
[2016-11-07] MEDS: NIFEdipine (XL) 60 MG TAB PO SCH (09:08)
[2016-11-07] MEDS: ATORVASTATIN 40 MG TAB PO SCH (09:08)
[2016-11-07] MEDS: RANITIDINE 150 MG TAB PO SCH (09:08)
[2016-11-07] MEDS: ASPIRIN 81 MG TAB PO SCH (09:08)
[2016-11-07] MEDS: PAROXETINE 10 MG TAB PO SCH (09:08)
[2016-11-07] MEDS: LOSARTAN 25 MG TAB PO SCH (09:08)
[2016-11-07] MEDS: PYRIDOXINE 50 MG TAB PO SCH (09:08)
[2016-11-07] MEDS: FOLIC ACID 1 MG TAB PO SCH (09:08)
[2016-11-07] MEDS: MULTIVIT/CA CARB/B CMPLX/FA TAB PO SCH (09:11)
--- NOTE | 2016-11-07 11:38 | PN ---
Date/Time of Note Date/Time of Note DATE: 11/07/16 TIME: 11:35 Assessment/Plan VTE Prophylaxis VTE Prophylaxis Intervention: SCD's Lines/C[facility]ters [facility] Urinary Cath still in place: No Assessment/Plan Chief Complaint/Hosp Course Assessment and plan: 1. Dizziness and syncope suspect secondary to acute CVA. Of note patient did have MRI of the brain on 10/15/2016 that did show findings compatible with chronic hemorrhage centered in the right thalamus extending into the right sanford radiata. There is also seen chronic right frontal lacunar infarct. Neurologist following. - Continue antiplatelet therapy, statin medication, as well as physical therapy services. - Continue conservative management 2. Non-ST elevated myocardial infarction. Likely demand ischemia. - Continue current therapy. Cardiologists following. 3. Essential hypertension. Continue on anti-hypertensives and adjust as needed. 4. End-stage renal disease. Continue on dialysis. Monitor renal panel. 5. 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 Continue physical therapy. 6. Anemia of chronic disease. H&H remained stable. We'll monitor. 7. History of major depression. Continue on Paxil 8. History of dyslipidemia. Continue on statin medication 9. HYperkalemia. cont with HD. monitor level. provide with kayexalate as needed Disposition and plan: Discharge planning. Still Awaiting placement for correction facility sec to medical approval. cont hd. cont physical therapy. check AM labs Problems: Subjective 24 Hr Interval Summary Free Text/Dictation Pt had HD yesterday, no acute events overnight. Exam/Review of Systems Vital Signs Vitals Vital Signs Date Time Temp Pulse Resp B/P Pulse Ox O2 Delivery O2 Flow Rate FiO2 11/07/16 08:14 99.0 59 18 162/91 99 Intake and Output 11/06/16 11/06/16 11/07/16 15:00 23:00 07:00 Intake Total 500 ml 120 ml Output Total 2500 ml Balance -2000 ml 120 ml Exam General: No acute signs or symptoms of distress Eyes: pupils equal round, Anicteric sclera Neck: Supple nontender, no JVD Cardiac: S1, S2 auscultated, regular rhythm and rate Pulmonary: No coarse rhonchi or breathing auscultated GI: Abdomen soft nontender nondistended, bowel sounds active Extremities: No edema bilateral lower extremities Skin: Clean dry and intact Neurologic: Alert to person place and time and situation Results Result Diagram: 11/07/16 0436 11/07/16 0436 Results 24 hrs Laboratory Tests Test 11/07/16 04:36 Anion Gap 17 H Basophils # 0.1 Basophils % 1.5 Blood Urea Nitrogen 46 #H Calcium Level 9.3 Carbon Dioxide Level 31 Chloride Level 95 L Creatinine 5.16 #H Eosinophils # 0.1 Eosinophils % 1.6 Glucose Level 89 Hematocrit 28.8 L Hemoglobin 9.8 L Lymphocytes # 0.5 L Lymphocytes % 13.5 L Mean Corpuscular Hemoglobin 32.1 Mean Corpuscular Hemoglobin Concent 33.9 Mean Corpuscular Volume 94.6 Mean Platelet Volume 8.0 Monocytes # 0.5 Monocytes % 13.3 H Neutrophils # 2.5 Neutrophils % 70.1 Nucleated Red Blood Cells # 0.0 Nucleated Red Blood Cells % 0.0 Platelet Count 220 Potassium Level 5.3 H Red Blood Count 3.05 L Red Cell Distribution Width 13.3 Sodium Level 138 White Blood Count 3.6 L Medications Medications Current Medications Amantadine HCl (Symmetrel) 100 mg DAILY PO Last administered on 11/07/16 09:07 ; Admin Dose 100 MG; Start 10/23/16 at 09:00 Docusate Sodium (Colace) 100 mg DAILY PO Last administered on 11/07/16 09:07; Admin Dose 100 MG; Start 10/23/16 at 09:00 Folic Acid (Folic Acid) 1 mg DAILY PO Last administered on 11/07/16 09:08; Admin Dose 1 MG; Start 10/23/16 at 09:00 Multivit/Ca Carb/ B Cmplx/FA/Prenat (Germaine-Nae) 1 tab DAILY PO Last administered on 11/07/16 09:11; Admin Dose 1 TAB; Start 10/23/16 at 09:00 Nifedipine (Procardia Xl) 60 mg DAILY PO Last administered on 11/07/16 09:08; Admin Dose 60 MG; Start 10/23/16 at 09:00 Paroxetine HCl (Paxil) 10 mg DAILY PO Last administered on 11/07/16 09:08; Admin Dose 10 MG; Start 10/23/16 at 09:00 Pyridoxine HCl (Vitamin B6) 100 mg DAILY PO Last administered on 11/07/16 09: 08; Admin Dose 100 MG; Start 10/23/16 at 09:00 Tramadol HCl (Ultram) 50 mg Q8H PRN PO PRN; Start 10/23/16 at 02:00 Atorvastatin Calcium (Lipitor) 40 mg DAILY PO Last administered on 11/07/16 09 :08; Admin Dose 40 MG; Start 10/23/16 at 09:00 Morphine Sulfate (morphine) 2 mg Q4H PRN IV PAIN Last administered on 11/04/16 20:12; Admin Dose 2 MG; Start 10/24/16 at 01:00 Aspirin (Aspirin) 81 mg DAILY PO Last administered on 11/07/16 09:08; Admin Dose 81 MG; Start 10/25/16 at 09:00 Hydralazine HCl (Apresoline) 10 mg Q6H PRN IV sbp>160mmhg Last administered on 10/28/16 16:34; Admin Dose 10 MG; Start 10/25/16 at 00:00 Cinacalcet (Sensipar) 90 mg DAILY PO Last administered on 11/07/16 09:07; Admin Dose 90 MG; Start 11/02/16 at 09:00 Ranitidine HCl (Zantac) 150 mg DAILY PO Last administered on 11/07/16 09:08; Admin Dose 150 MG; Start 11/03/16 at 09:00 Losartan Potassium (Cozaar) 25 mg DAILY PO Last administered on 11/07/16 09:08 ; Admin Dose 25 MG; Start 11/07/16 at 09:00 CHANTEL ROJAS Nov 07, 2016 11:38
[2016-11-07] MEDS: POLYETHYLENE GLYCOL 17 GM PACKET PO SCH (14:53)
[2016-11-07] MEDS: LUBIPROSTONE 24 MCG CAP PO SCH ×2 (14:53→21:06)
--- NOTE | 2016-11-07 16:05 | CONS ---
Date/Time of Note Date/Time of Note DATE: 11/07/16 TIME: 16:04 Assessment/Plan Assessment/Plan Chief Complaint/Hosp Course IMPRESSION: A 46-year-old unfortunate male with the followin. HTN 2. [id number] myocardial infarction. 3. 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 End-stage renal disease, on hemodialysis. 6. Chronic debility from previous cerebrovascular accident. 7. Anemia of chronic kidney disease with associated leukopenia. 8. Chronic depression. 9 HYPERCALCEMIA hx 10 hyperkalemia hx PLAN HD am dc planning per pcp [facility] HD am dc [place] Problems: Consultation Date/Type/Reason Admit Date/Time Oct 23, 2016 at 14:38 Initial Consult Date 10/23/16 Type of Consultation: NEPHROLOGY Referring Provider: KIA FREEDMAN 24 HR Interval Summary Constitutional: no complaints Exam/Review of Systems Vital Signs Vitals Vital Signs Date Time Temp Pulse Resp B/P Pulse Ox O2 Delivery O2 Flow Rate FiO2 11/07/16 08:14 99.0 59 18 162/91 99 Intake and Output 11/06/16 11/06/16 11/07/16 15:00 23:00 07:00 Intake Total 500 ml 120 ml Output Total 2500 ml Balance -2000 ml 120 ml Exam Neck: supple Respiratory: clear to auscultation Cardiovascular: regular rate and rhythm Gastrointestinal: soft Musculoskeletal: nl extremities to inspection Results Result Diagram: 11/07/16 0436 11/07/16 0436 Results 24 hrs Laboratory Tests Test 11/07/16 04:36 Anion Gap 17 H Basophils # 0.1 Basophils % 1.5 Blood Urea Nitrogen 46 #H Calcium Level 9.3 Carbon Dioxide Level 31 Chloride Level 95 L Creatinine 5.16 #H Eosinophils # 0.1 Eosinophils % 1.6 Glucose Level 89 Hematocrit 28.8 L Hemoglobin 9.8 L Lymphocytes # 0.5 L Lymphocytes % 13.5 L Mean Corpuscular Hemoglobin 32.1 Mean Corpuscular Hemoglobin Concent 33.9 Mean Corpuscular Volume 94.6 Mean Platelet Volume 8.0 Monocytes # 0.5 Monocytes % 13.3 H Neutrophils # 2.5 Neutrophils % 70.1 Nucleated Red Blood Cells # 0.0 Nucleated Red Blood Cells % 0.0 Platelet Count 220 Potassium Level 5.3 H Red Blood Count 3.05 L Red Cell Distribution Width 13.3 Sodium Level 138 White Blood Count 3.6 L Medications Medications Current Medications Amantadine HCl (Symmetrel) 100 mg DAILY PO Last administered on 11/07/16 09:07 ; Admin Dose 100 MG; Start 10/23/16 at 09:00 Docusate Sodium (Colace) 100 mg DAILY PO Last administered on 11/07/16 09:07; Admin Dose 100 MG; Start 10/23/16 at 09:00 Folic Acid (Folic Acid) 1 mg DAILY PO Last administered on 11/07/16 09:08; Admin Dose 1 MG; Start 10/23/16 at 09:00 Multivit/Ca Carb/ B Cmplx/FA/Prenat (Germaine-Nae) 1 tab DAILY PO Last administered on 11/07/16 09:11; Admin Dose 1 TAB; Start 10/23/16 at 09:00 Nifedipine (Procardia Xl) 60 mg DAILY PO Last administered on 11/07/16 09:08; Admin Dose 60 MG; Start 10/23/16 at 09:00 Paroxetine HCl (Paxil) 10 mg DAILY PO Last administered on 11/07/16 09:08; Admin Dose 10 MG; Start 10/23/16 at 09:00 Pyridoxine HCl (Vitamin B6) 100 mg DAILY PO Last administered on 11/07/16 09: 08; Admin Dose 100 MG; Start 10/23/16 at 09:00 Tramadol HCl (Ultram) 50 mg Q8H PRN PO PRN; Start 10/23/16 at 02:00 Atorvastatin Calcium (Lipitor) 40 mg DAILY PO Last administered on 11/07/16 09 :08; Admin Dose 40 MG; Start 10/23/16 at 09:00 Morphine Sulfate (morphine) 2 mg Q4H PRN IV PAIN Last administered on 11/04/16 20:12; Admin Dose 2 MG; Start 10/24/16 at 01:00 Aspirin (Aspirin) 81 mg DAILY PO Last administered on 11/07/16 09:08; Admin Dose 81 MG; Start 10/25/16 at 09:00 Hydralazine HCl (Apresoline) 10 mg Q6H PRN IV sbp>160mmhg Last administered on 10/28/16 16:34; Admin Dose 10 MG; Start 10/25/16 at 00:00 Cinacalcet (Sensipar) 90 mg DAILY PO Last administered on 11/07/16 09:07; Admin Dose 90 MG; Start 11/02/16 at 09:00 Ranitidine HCl (Zantac) 150 mg DAILY PO Last administered on 11/07/16 09:08; Admin Dose 150 MG; Start 11/03/16 at 09:00 Losartan Potassium (Cozaar) 25 mg DAILY PO Last administered on 11/07/16 09:08 ; Admin Dose 25 MG; Start 11/07/16 at 09:00 Polyethylene Glycol (Miralax) 17 gm DAILY PO Last administered on 11/07/16 14: 53; Admin Dose 17 GM; Start 11/07/16 at 12:30 Lubiprostone (Amitiza) 24 mcg BID PO Last administered on 11/07/16 14:53; Admin Dose 24 MCG; Start 11/07/16 at 14:00 DEEPAK BERGER MD Nov 07, 2016 16:05
[2016-11-07] MEDS ORDERED: NA POLYST SULFON 15 GM/60 ML BTL PO ONE (17:00)
[2016-11-07 20:38] VITALS: BP 133/66; RESP 20
[2016-11-08] VITALS (11 sets, daily range): BP systolic 122–147; BP diastolic 69–90; PULSE 54–100; RESP 16–20
[2016-11-08 07:22] LABS: POTASSIUM 5.7 mmol/L (3.5-5.1)
[2016-11-08 07:25] LABS: CREATININE 6.9 mg/dl (0.61-1.24)
[2016-11-08 07:26] LABS: CALCIUM 9.7 mg/dl (8.4-10.2)
[2016-11-08] MEDS: NIFEdipine (XL) 60 MG TAB PO SCH (09:00)
[2016-11-08] MEDS: LOSARTAN 25 MG TAB PO SCH (09:00)
[2016-11-08] MEDS: DOCUSATE SODIUM 100 MG CAP PO SCH (09:01)
[2016-11-08] MEDS: CINACALCET 30 MG TAB PO SCH (09:01)
[2016-11-08] MEDS: ASPIRIN 81 MG TAB PO SCH (09:01)
[2016-11-08] MEDS: ATORVASTATIN 40 MG TAB PO SCH (09:01)
[2016-11-08] MEDS: SEVELAMER 800 MG TAB PO SCH ×4 (09:01→17:24)
[2016-11-08] MEDS: PYRIDOXINE 50 MG TAB PO SCH (09:01)
[2016-11-08] MEDS: LUBIPROSTONE 24 MCG CAP PO SCH ×2 (09:01→20:01)
[2016-11-08] MEDS: POLYETHYLENE GLYCOL 17 GM PACKET PO SCH (09:01)
[2016-11-08] MEDS: RANITIDINE 150 MG TAB PO SCH (09:02)
[2016-11-08] MEDS: PAROXETINE 10 MG TAB PO SCH (09:02)
[2016-11-08] MEDS: FOLIC ACID 1 MG TAB PO SCH (09:02)
[2016-11-08] MEDS: AMANTADINE 100 MG CAP PO SCH (09:02)
[2016-11-08] MEDS: MULTIVIT/CA CARB/B CMPLX/FA TAB PO SCH (09:02)
--- NOTE | 2016-11-08 13:28 | CONS ---
Date/Time of Note Date/Time of Note DATE: 11/08/16 TIME: 13:27 Assessment/Plan Assessment/Plan Chief Complaint/Hosp Course IMPRESSION: A 46-year-old unfortunate male with the followin. HTN 2. Oli-SO-rjydyjrmc myocardial infarction. 3. 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 4. 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 End-stage renal disease, on hemodialysis. 6. Chronic debility from previous cerebrovascular accident. 7. Anemia of chronic kidney disease with associated leukopenia. 8. Chronic depression. 9 HYPERCALCEMIA hx 10 hyperkalemia hx PLAN HD am dc planning per pcp sensipar HD am dc juliet dc arb abd ultras Problems: Consultation Date/Type/Reason Admit Date/Time Oct 23, 2016 at 14:38 Initial Consult Date 10/23/16 Type of Consultation: NEPHROLOGY Referring Provider: KIA FREEDMAN 24 HR Interval Summary Constitutional: no complaints Exam/Review of Systems Vital Signs Vitals Vital Signs Date Time Temp Pulse Resp B/P Pulse Ox O2 Delivery O2 Flow Rate FiO2 11/08/16 12:00 65 11/08/16 11:00 16 11/08/16 08:19 97.8 147/90 100 Intake and Output 11/07/16 11/07/16 11/08/16 15:00 23:00 07:00 Intake Total 900 ml 150 ml Balance 900 ml 150 ml Exam Neck: supple Respiratory: clear to auscultation Cardiovascular: regular rate and rhythm Gastrointestinal: soft Genitourinary - Male: nl scrotum Musculoskeletal: nl extremities to inspection Results Result Diagram: 11/07/16 0436 11/08/16 0423 Results 24 hrs Laboratory Tests Test 11/08/16 04:23 Anion Gap 24 #H Blood Urea Nitrogen 72 H Calcium Level 9.7 Carbon Dioxide Level 28 Chloride Level 93 L Creatinine 6.90 H Glucose Level 88 Potassium Level 5.7 H Sodium Level 139 Medications Medications Current Medications Amantadine HCl (Symmetrel) 100 mg DAILY PO Last administered on 11/08/16 09:02 ; Admin Dose 100 MG; Start 10/23/16 at 09:00 Docusate Sodium (Colace) 100 mg DAILY PO Last administered on 11/08/16 09:01; Admin Dose 100 MG; Start 10/23/16 at 09:00 Folic Acid (Folic Acid) 1 mg DAILY PO Last administered on 11/08/16 09:02; Admin Dose 1 MG; Start 10/23/16 at 09:00 Multivit/Ca Carb/ B Cmplx/FA/Prenat (Germaine-Nae) 1 tab DAILY PO Last administered on 11/08/16 09:02; Admin Dose 1 TAB; Start 10/23/16 at 09:00 Nifedipine (Procardia Xl) 60 mg DAILY PO Last administered on 11/07/16 09:08; Admin Dose 60 MG; Start 10/23/16 at 09:00 Paroxetine HCl (Paxil) 10 mg DAILY PO Last administered on 11/08/16 09:02; Admin Dose 10 MG; Start 10/23/16 at 09:00 Pyridoxine HCl (Vitamin B6) 100 mg DAILY PO Last administered on 11/08/16 09: 01; Admin Dose 100 MG; Start 10/23/16 at 09:00 Tramadol HCl (Ultram) 50 mg Q8H PRN PO PRN; Start 10/23/16 at 02:00 Atorvastatin Calcium (Lipitor) 40 mg DAILY PO Last administered on 11/08/16 09 :01; Admin Dose 40 MG; Start 10/23/16 at 09:00 Morphine Sulfate (morphine) 2 mg Q4H PRN IV PAIN Last administered on 11/04/16 20:12; Admin Dose 2 MG; Start 10/24/16 at 01:00 Aspirin (Aspirin) 81 mg DAILY PO Last administered on 11/08/16 09:01; Admin Dose 81 MG; Start 10/25/16 at 09:00 Hydralazine HCl (Apresoline) 10 mg Q6H PRN IV sbp>160mmhg Last administered on 10/28/16 16:34; Admin Dose 10 MG; Start 10/25/16 at 00:00 Cinacalcet (Sensipar) 90 mg DAILY PO Last administered on 11/08/16 09:01; Admin Dose 90 MG; Start 11/02/16 at 09:00 Ranitidine HCl (Zantac) 150 mg DAILY PO Last administered on 11/08/16 09:02; Admin Dose 150 MG; Start 11/03/16 at 09:00 Polyethylene Glycol (Miralax) 17 gm DAILY PO Last administered on 11/08/16 09: 01; Admin Dose 17 GM; Start 11/07/16 at 12:30 Lubiprostone (Amitiza) 24 mcg BID PO Last administered on 11/08/16 09:01; Admin Dose 24 MCG; Start 11/07/16 at 14:00 DEEPAK BERGER MD Nov 08, 2016 13:28
--- NOTE | 2016-11-08 16:52 | PN ---
DATE: 11/08/2016 SUBJECTIVE: The patient remains relatively stable. No new events. Continues hemodialysis per Neph rology. PHYSICAL EXAMINATION: VITAL SIGNS: Temperature 98, pulse is 95, blood pressure 147/90, O2 saturation 96%, FIO2 of room ai r. NECK: Supple. No JVD, no lymphadenopathy. CARDIAC: S1, S2. No added sounds or murmurs. CHEST: Diminished air entry bilaterally. ABDOMEN: Soft, nontender. No guarding or rebound. EXTREMITIES: No cyanosis, clubbing, edema. NEUROLOGIC: Generalized weakness. LABORATORY DATA: White count 3.6, hemoglobin 9.8, platelets of 220. BUN 72, creatinine 6.9, potass ium 5.7. IMAGING: Chest x-ray was unremarkable. MRI of the brain as demonstrated previously shows chronic h emorrhage, right thalamus; microhemorrhage in the left randall; and right frontal acute infarct. IMPRESSION AND PLAN: 1. Recent cerebrovascular accidents. 2. History of hypertension. 3. End-stage renal failure. 4. Immobility. The patient will require: 1. Continued blood pressure management. 2. Hemodialysis per Nephrology with correction of electrolytes. 3. Aspiration precautions. 4. DVT and GI prophylaxis. 5. Pending transfer to detention facility. Dictated By: UYEN URIAS/LOURDES Conf#: [id number] DID#: [id number]
--- NOTE | 2016-11-08 19:31 | RADRPT ---
PROCEDURE: Renal US. CLINICAL INDICATION: Acute kidney injury. TECHNIQUE: Multiple sonographic images of the kidneys and urinary bladder were obtained. The imag es were reviewed on a PACS workstation. COMPARISON: No prior studies are available for comparison. FINDINGS: The right kidney measures 5.6 cm. The left kidney is not visualized. The right kidney is atrophic and hyperechoic consistent with medical renal disease. There is a phoenix gn 1.4 cm cyst in the upper to mid right kidney. There is no solid right renal mass, hydronephrosis , or calculus. The urinary bladder is unremarkable. IMPRESSION: 1. Atrophic and hyperechoic right kidney consistent with medical renal disease. 2. Benign right renal cyst. 3. Left kidney not visualized. RPTAT: QQ .Dereck Muir MD, Date Time Electronically viewed and signed by .Dereck Muir MD, MD on 11/08/2016 19:31 .R/
[2016-11-09 06:35] LABS: POTASSIUM 4.9 mmol/L (3.5-5.1)
[2016-11-09 06:37] LABS: CREATININE 4.62 mg/dl (0.61-1.24)
[2016-11-09 06:38] LABS: CALCIUM 9.3 mg/dl (8.4-10.2)
[2016-11-09 07:50] VITALS: BP 125/85; RESP 19
[2016-11-09] MEDS: LUBIPROSTONE 24 MCG CAP PO SCH ×2 (08:19→20:51)
[2016-11-09] MEDS: PAROXETINE 10 MG TAB PO SCH (08:19)
[2016-11-09] MEDS: POLYETHYLENE GLYCOL 17 GM PACKET PO SCH (08:19)
[2016-11-09] MEDS: NIFEdipine (XL) 60 MG TAB PO SCH (08:19)
[2016-11-09] MEDS: ATORVASTATIN 40 MG TAB PO SCH (08:19)
[2016-11-09] MEDS: DOCUSATE SODIUM 100 MG CAP PO SCH (08:19)
[2016-11-09] MEDS: SEVELAMER 800 MG TAB PO SCH ×3 (08:19→17:10)
[2016-11-09] MEDS: PYRIDOXINE 50 MG TAB PO SCH (08:19)
[2016-11-09] MEDS: MULTIVIT/CA CARB/B CMPLX/FA TAB PO SCH (08:19)
[2016-11-09] MEDS: AMANTADINE 100 MG CAP PO SCH (08:20)
[2016-11-09] MEDS: ASPIRIN 81 MG TAB PO SCH (08:20)
[2016-11-09] MEDS: CINACALCET 30 MG TAB PO SCH (08:20)
[2016-11-09] MEDS: RANITIDINE 150 MG TAB PO SCH (08:20)
[2016-11-09] MEDS: FOLIC ACID 1 MG TAB PO SCH (08:20)
--- NOTE | 2016-11-09 12:06 | PN ---
Date/Time of Note Date/Time of Note DATE: 11/09/16 TIME: 12:01 Assessment/Plan VTE Prophylaxis VTE Prophylaxis Intervention: other Lines/Catheters IV [facility]ter Type (from [facility] Saline Lock Urinary Cath still in place: No Assessment/Plan Problems: (1) CVA (cerebrovascular accident due to intracerebral hemorrhage) Status: Chronic Comment: The patient is stable after CVA with hemorrhagic conversion in the past. He has continued to work with his arm. The stability affects his placement as well as his mood. However he is continuing to try and this is stable and not actively changing Qualifiers: Intracerebral hemorrhage etiology: nontraumatic Cerebral hemorrhage location: cerebral hemisphere, subcortical portion Laterality: right Qualified Code: I61.0 - Nontraumatic subcortical hemorrhage of right cerebral hemisphere (2) Debility Status: Chronic Comment: Secondary to above (3) Anemia Status: Chronic Comment: Given his non-STEMI it will be important to try and correct this as best we can he will be on Neupogen as well as maintaining his iron B12 and folate levels Qualifiers: Anemia type: other cause Other causes of anemia: chronic disease, kidney Qualified Code: N18.9 - Anemia in chronic kidney disease (4) Hyperlipidemia Status: Chronic Comment: Adequately controlled on statin and verified by lab test Qualifiers: Hyperlipidemia type: pure hypercholesterolemia Qualified Code: E78.00 - Pure hypercholesterolemia (5) Primary dysthymia Status: Chronic Comment: Noted (6) Bone metabolism disorder Status: Chronic Comment: He is on Sensipar (7) End-stage renal disease on hemodialysis Status: Chronic Comment: As per nephrology (8) Essential hypertension Status: Chronic Comment: Controlled with medications Assessment/Plan Status post N STEMI at this time he is doing relatively well. We will try and keep his counts up and her main issue now is finding adequate placement for him Subjective 24 Hr Interval Summary Free Text/Dictation Patient is awake and alert oriented and conversant in Marshallese Constitutional: no complaints Eyes: no complaints Respiratory: no complaints Cardiovascular: no complaints Gastrointestinal: no complaints Genitourinary: no complaints Musculoskeletal: restricted range of motion (Some pain and restricted range of motion of the left upper extremity much more than the left lower extremity status post prior neurologic event) Neurologic: no complaints (No new events) Psychological: depression Exam/Review of Systems Vital Signs Vitals Vital Signs Date Time Temp Pulse Resp B/P Pulse Ox O2 Delivery O2 Flow Rate FiO2 11/09/16 07:50 97.9 59 19 125/85 99 Intake and Output 11/08/16 11/08/16 11/09/16 15:00 23:00 07:00 Intake Total 500 ml 480 ml 240 ml Output Total 2500 ml Balance -2000 ml 480 ml 240 ml Exam Constitutional: alert, oriented Neck: non-tender, supple Respiratory: clear to auscultation, normal air movement Cardiovascular: nl pulses, regular rate and rhythm Gastrointestinal: nl liver, spleen, non-tender, soft Extremities: other (Left upper extremity with some contracture although the patient is able to move and is actively doing so on his own. He has more mobility in the left lower extremity and has 4- out of 5 strength there with some limited range of motion) Results Result Diagram: 11/07/16 0436 11/09/16 0428 Results 24 hrs Laboratory Tests Test 11/08/16 19:36 11/09/16 04:28 Bedside Glucose 167 Anion Gap 19 H Blood Urea Nitrogen 44 #H Calcium Level 9.3 Carbon Dioxide Level 34 H Chloride Level 93 L Creatinine 4.62 #H Glucose Level 87 Potassium Level 4.9 Sodium Level 141 Medications Medications Current Medications Amantadine HCl (Symmetrel) 100 mg DAILY PO Last administered on 11/09/16 08:20 ; Admin Dose 100 MG; Start 10/23/16 at 09:00 Docusate Sodium (Colace) 100 mg DAILY PO Last administered on 11/09/16 08:19; Admin Dose 100 MG; Start 10/23/16 at 09:00 Folic Acid (Folic Acid) 1 mg DAILY PO Last administered on 11/09/16 08:20; Admin Dose 1 MG; Start 10/23/16 at 09:00 Multivit/Ca Carb/ B Cmplx/FA/Prenat (Germaine-Nae) 1 tab DAILY PO Last administered on 11/09/16 08:19; Admin Dose 1 TAB; Start 10/23/16 at 09:00 Nifedipine (Procardia Xl) 60 mg DAILY PO Last administered on 11/09/16 08:19; Admin Dose 60 MG; Start 10/23/16 at 09:00 Paroxetine HCl (Paxil) 10 mg DAILY PO Last administered on 11/09/16 08:19; Admin Dose 10 MG; Start 10/23/16 at 09:00 Pyridoxine HCl (Vitamin B6) 100 mg DAILY PO Last administered on 11/09/16 08: 19; Admin Dose 100 MG; Start 10/23/16 at 09:00 Tramadol HCl (Ultram) 50 mg Q8H PRN PO PRN; Start 10/23/16 at 02:00 Atorvastatin Calcium (Lipitor) 40 mg DAILY PO Last administered on 11/09/16 08 :19; Admin Dose 40 MG; Start 10/23/16 at 09:00 Morphine Sulfate (morphine) 2 mg Q4H PRN IV PAIN Last administered on 11/04/16 20:12; Admin Dose 2 MG; Start 10/24/16 at 01:00 Aspirin (Aspirin) 81 mg DAILY PO Last administered on 11/09/16 08:20; Admin Dose 81 MG; Start 10/25/16 at 09:00 Hydralazine HCl (Apresoline) 10 mg Q6H PRN IV sbp>160mmhg Last administered on 10/28/16 16:34; Admin Dose 10 MG; Start 10/25/16 at 00:00 Cinacalcet (Sensipar) 90 mg DAILY PO Last administered on 11/09/16 08:20; Admin Dose 90 MG; Start 11/02/16 at 09:00 Ranitidine HCl (Zantac) 150 mg DAILY PO Last administered on 11/09/16 08:20; Admin Dose 150 MG; Start 11/03/16 at 09:00 Polyethylene Glycol (Miralax) 17 gm DAILY PO Last administered on 11/09/16 08: 19; Admin Dose 17 GM; Start 11/07/16 at 12:30 Lubiprostone (Amitiza) 24 mcg BID PO Last administered on 11/09/16 08:19; Admin Dose 24 MCG; Start 11/07/16 at 14:00 LUZ XIE MD Nov 09, 2016 12:06
[2016-11-09] MEDS ORDERED: EPOETIN 10000 UNITS/1 ML INJ (ESRD) SC ONE (12:30)
[2016-11-09 19:27] VITALS: BP 113/75; RESP 19
--- NOTE | 2016-11-09 19:31 | CONS ---
Date/Time of Note Date/Time of Note DATE: 11/09/16 TIME: 19:30 Assessment/Plan Assessment/Plan Chief Complaint/Hosp Course IMPRESSION: A 46-year-old unfortunate male with the followin. HTN 2. [id number] myocardial infarction. 3. 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 End-stage renal disease, on hemodialysis. 6. Chronic debility from previous cerebrovascular accident. 7. Anemia of chronic kidney disease with associated leukopenia. 8. Chronic depression. 9 HYPERCALCEMIA hx 10 hyperkalemia hx PLAN HD am dc planning per pcp sensipar HD am dc juliet dc arb ck labs Problems: Consultation Date/Type/Reason Admit Date/Time Oct 23, 2016 at 14:38 Initial Consult Date 10/23/16 Type of Consultation: NEPHROLOGY Referring Provider: KIA FREEDMAN 24 HR Interval Summary Constitutional: no complaints Exam/Review of Systems Vital Signs Vitals Vital Signs Date Time Temp Pulse Resp B/P Pulse Ox O2 Delivery O2 Flow Rate FiO2 11/09/16 19:27 98.0 68 19 113/75 99 Intake and Output 11/08/16 11/08/16 11/09/16 15:00 23:00 07:00 Intake Total 500 ml 480 ml 240 ml Output Total 2500 ml Balance -2000 ml 480 ml 240 ml Exam Neck: supple Respiratory: clear to auscultation Cardiovascular: regular rate and rhythm Gastrointestinal: soft Musculoskeletal: nl extremities to inspection Extremities: normal pulses Results Result Diagram: 11/07/16 0436 11/09/16 0428 Results 24 hrs Laboratory Tests Test 11/08/16 19:36 11/09/16 04:28 Bedside Glucose 167 Anion Gap 19 H Blood Urea Nitrogen 44 #H Calcium Level 9.3 Carbon Dioxide Level 34 H Chloride Level 93 L Creatinine 4.62 #H Glucose Level 87 Potassium Level 4.9 Sodium Level 141 Medications Medications Current Medications Amantadine HCl (Symmetrel) 100 mg DAILY PO Last administered on 11/09/16 08:20 ; Admin Dose 100 MG; Start 10/23/16 at 09:00 Docusate Sodium (Colace) 100 mg DAILY PO Last administered on 11/09/16 08:19; Admin Dose 100 MG; Start 10/23/16 at 09:00 Folic Acid (Folic Acid) 1 mg DAILY PO Last administered on 11/09/16 08:20; Admin Dose 1 MG; Start 10/23/16 at 09:00 Multivit/Ca Carb/ B Cmplx/FA/Prenat (Germaine-Nae) 1 tab DAILY PO Last administered on 11/09/16 08:19; Admin Dose 1 TAB; Start 10/23/16 at 09:00 Nifedipine (Procardia Xl) 60 mg DAILY PO Last administered on 11/09/16 08:19; Admin Dose 60 MG; Start 10/23/16 at 09:00 Paroxetine HCl (Paxil) 10 mg DAILY PO Last administered on 11/09/16 08:19; Admin Dose 10 MG; Start 10/23/16 at 09:00 Pyridoxine HCl (Vitamin B6) 100 mg DAILY PO Last administered on 11/09/16 08: 19; Admin Dose 100 MG; Start 10/23/16 at 09:00 Tramadol HCl (Ultram) 50 mg Q8H PRN PO PRN; Start 10/23/16 at 02:00 Atorvastatin Calcium (Lipitor) 40 mg DAILY PO Last administered on 11/09/16 08 :19; Admin Dose 40 MG; Start 10/23/16 at 09:00 Morphine Sulfate (morphine) 2 mg Q4H PRN IV PAIN Last administered on 11/04/16 20:12; Admin Dose 2 MG; Start 10/24/16 at 01:00 Aspirin (Aspirin) 81 mg DAILY PO Last administered on 11/09/16 08:20; Admin Dose 81 MG; Start 10/25/16 at 09:00 Hydralazine HCl (Apresoline) 10 mg Q6H PRN IV sbp>160mmhg Last administered on 10/28/16 16:34; Admin Dose 10 MG; Start 10/25/16 at 00:00 Cinacalcet (Sensipar) 90 mg DAILY PO Last administered on 11/09/16 08:20; Admin Dose 90 MG; Start 11/02/16 at 09:00 Ranitidine HCl (Zantac) 150 mg DAILY PO Last administered on 11/09/16 08:20; Admin Dose 150 MG; Start 11/03/16 at 09:00 Polyethylene Glycol (Miralax) 17 gm DAILY PO Last administered on 11/09/16 08: 19; Admin Dose 17 GM; Start 11/07/16 at 12:30 Lubiprostone (Amitiza) 24 mcg BID PO Last administered on 11/09/16 08:19; Admin Dose 24 MCG; Start 11/07/16 at 14:00 Epoetin Jonah (Epogen (Esrd)) 10,000 units MoWeFr@17 SC ; Start 11/11/16 at 17:00 DEEPAK BERGER MD Nov 09, 2016 19:30
[2016-11-10 06:27] LABS: POTASSIUM 5.4 mmol/L (3.5-5.1)
[2016-11-10 06:30] LABS: CREATININE 6.36 mg/dl (0.61-1.24)
[2016-11-10 06:31] LABS: CALCIUM 9.9 mg/dl (8.4-10.2)
[2016-11-10] MEDS: POLYETHYLENE GLYCOL 17 GM PACKET PO SCH (08:20)
[2016-11-10] MEDS: SEVELAMER 800 MG TAB PO SCH ×3 (08:20→17:11)
[2016-11-10] MEDS: MULTIVIT/CA CARB/B CMPLX/FA TAB PO SCH (08:20)
[2016-11-10] MEDS: ATORVASTATIN 40 MG TAB PO SCH (08:20)
[2016-11-10] MEDS: RANITIDINE 150 MG TAB PO SCH (08:20)
[2016-11-10] MEDS: PYRIDOXINE 50 MG TAB PO SCH (08:21)
[2016-11-10] MEDS: ASPIRIN 81 MG TAB PO SCH (08:21)
[2016-11-10] MEDS: FOLIC ACID 1 MG TAB PO SCH (08:21)
[2016-11-10] MEDS: CINACALCET 30 MG TAB PO SCH (08:21)
[2016-11-10] MEDS: PAROXETINE 10 MG TAB PO SCH (08:21)
[2016-11-10] MEDS: LUBIPROSTONE 24 MCG CAP PO SCH ×2 (08:21→19:55)
[2016-11-10] MEDS: DOCUSATE SODIUM 100 MG CAP PO SCH (08:21)
[2016-11-10] MEDS: AMANTADINE 100 MG CAP PO SCH (08:21)
[2016-11-10] MEDS: NIFEdipine (XL) 60 MG TAB PO SCH (08:24)
[2016-11-10 08:28] VITALS: BP 127/79; RESP 16
--- NOTE | 2016-11-10 09:11 | PN ---
Date/Time of Note Date/Time of Note DATE: 11/10/16 TIME: 09:08 Assessment/Plan VTE Prophylaxis VTE Prophylaxis Intervention: other Lines/Catheters IV [facility] Saline Lock Urinary Cath still in place: No Assessment/Plan Problems: (1) CVA (cerebrovascular accident due to intracerebral hemorrhage) Status: Chronic Comment: This is stable in a long-term issue. Fortunately were not seeing any new advancement. We will continue on his much rehabilitative care as we can. Qualifiers: Intracerebral hemorrhage etiology: nontraumatic Cerebral hemorrhage location: cerebral hemisphere, subcortical portion Laterality: right Qualified Code: I61.0 - Nontraumatic subcortical hemorrhage of right cerebral hemisphere (2) Debility Status: Chronic Comment: This is due to the above CVA will continue trying to work with him (3) Anemia Status: Chronic Comment: He will be receiving Epogen on a regular basis Qualifiers: Anemia type: other cause Other causes of anemia: chronic disease, kidney Qualified Code: N18.9 - Anemia in chronic kidney disease (4) Hyperlipidemia Status: Chronic Qualifiers: Hyperlipidemia type: pure hypercholesterolemia Qualified Code: E78.00 - Pure hypercholesterolemia (5) Primary dysthymia Status: Chronic Comment: Noted and stable no SI or HI (6) End-stage renal disease on hemodialysis Status: Chronic Comment: As per nephrology Subjective 24 Hr Interval Summary Free Text/Dictation Patient resting in bed watching television offers no specific complaints Constitutional: no complaints ENT: no complaints Respiratory: no complaints Cardiovascular: no complaints Gastrointestinal: no complaints Genitourinary: no complaints Exam/Review of Systems Vital Signs Vitals Vital Signs Date Time Temp Pulse Resp B/P Pulse Ox O2 Delivery O2 Flow Rate FiO2 11/10/16 08:28 98.0 51 16 127/79 100 Intake and Output 11/09/16 11/09/16 11/10/16 15:00 23:00 07:00 Intake Total 1040 ml 360 ml Balance 1040 ml 360 ml Exam Constitutional: alert, oriented Neck: non-tender, supple Respiratory: clear to auscultation, normal air movement Cardiovascular: nl pulses, regular rate and rhythm Gastrointestinal: nl liver, spleen, non-tender, soft Neurological: other (No change) Results Result Diagram: 11/07/16 0436 11/10/16 0454 Results 24 hrs Laboratory Tests Test 1/15/17 04:54 Anion Gap 20 H Blood Urea Nitrogen 68 H Calcium Level 9.9 Carbon Dioxide Level 33 H Chloride Level 93 L Creatinine 6.36 H Glucose Level 99 Potassium Level 5.4 H Sodium Level 141 Medications Medications Current Medications Amantadine HCl (Symmetrel) 100 mg DAILY PO Last administered on 11/10/16 08:21 ; Admin Dose 100 MG; Start 10/23/16 at 09:00 Docusate Sodium (Colace) 100 mg DAILY PO Last administered on 11/10/16 08:21; Admin Dose 100 MG; Start 10/23/16 at 09:00 Folic Acid (Folic Acid) 1 mg DAILY PO Last administered on 11/10/16 08:21; Admin Dose 1 MG; Start 10/23/16 at 09:00 Multivit/Ca Carb/ B Cmplx/FA/Prenat (Germaine-Nae) 1 tab DAILY PO Last administered on 11/10/16 08:20; Admin Dose 1 TAB; Start 10/23/16 at 09:00 Nifedipine (Procardia Xl) 60 mg DAILY PO Last administered on 11/10/16 08:24; Admin Dose 60 MG; Start 10/23/16 at 09:00 Paroxetine HCl (Paxil) 10 mg DAILY PO Last administered on 11/10/16 08:21; Admin Dose 10 MG; Start 10/23/16 at 09:00 Pyridoxine HCl (Vitamin B6) 100 mg DAILY PO Last administered on 11/10/16 08: 21; Admin Dose 100 MG; Start 10/23/16 at 09:00 Tramadol HCl (Ultram) 50 mg Q8H PRN PO PRN; Start 10/23/16 at 02:00 Atorvastatin Calcium (Lipitor) 40 mg DAILY PO Last administered on 11/10/16 08 :20; Admin Dose 40 MG; Start 10/23/16 at 09:00 Morphine Sulfate (morphine) 2 mg Q4H PRN IV PAIN Last administered on 11/04/16 20:12; Admin Dose 2 MG; Start 10/24/16 at 01:00 Aspirin (Aspirin) 81 mg DAILY PO Last administered on 11/10/16 08:21; Admin Dose 81 MG; Start 10/25/16 at 09:00 Hydralazine HCl (Apresoline) 10 mg Q6H PRN IV sbp>160mmhg Last administered on 10/28/16 16:34; Admin Dose 10 MG; Start 10/25/16 at 00:00 Cinacalcet (Sensipar) 90 mg DAILY PO Last administered on 11/10/16 08:21; Admin Dose 90 MG; Start 11/02/16 at 09:00 Ranitidine HCl (Zantac) 150 mg DAILY PO Last administered on 11/10/16 08:20; Admin Dose 150 MG; Start 11/03/16 at 09:00 Polyethylene Glycol (Miralax) 17 gm DAILY PO Last administered on 11/10/16 08: 20; Admin Dose 17 GM; Start 11/07/16 at 12:30 Lubiprostone (Amitiza) 24 mcg BID PO Last administered on 11/10/16 08:21; Admin Dose 24 MCG; Start 11/07/16 at 14:00 Epoetin Jonah (Epogen (Esrd)) 10,000 units MoWeFr@17 SC ; Start 11/11/16 at 17:00 LUZ XIE MD Nov 10, 2016 09:11
[2016-11-10] MEDS ORDERED: NA POLYST SULFON 15 GM/60 ML BTL PO ONE (13:30)
--- NOTE | 2016-11-10 15:50 | CONS ---
Date/Time of Note Date/Time of Note DATE: 11/10/16 TIME: 15:49 Assessment/Plan Assessment/Plan Chief Complaint/Hosp Course IMPRESSION: A 46-year-old unfortunate male with the followin. HTN 2. Ebj-UJ-johlmnrkb myocardial infarction. 3. 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 End-stage renal disease, on hemodialysis. 6. Chronic debility from previous cerebrovascular accident. 7. Anemia of chronic kidney disease with associated leukopenia. 8. Chronic depression. 9 HYPERCALCEMIA hx 10 hyperkalemia hx PLAN HD am dc planning per pcp sensipar HD am dc juliet dc arb ck labs KAYEXALATE Problems: Consultation Date/Type/Reason Admit Date/Time Oct 23, 2016 at 14:38 Initial Consult Date 10/23/16 Type of Consultation: NEPHROLOGY Referring Provider: KIA FREEDMAN 24 HR Interval Summary Constitutional: no complaints Exam/Review of Systems Vital Signs Vitals Vital Signs Date Time Temp Pulse Resp B/P Pulse Ox O2 Delivery O2 Flow Rate FiO2 11/10/16 08:28 98.0 51 16 127/79 100 Intake and Output 11/09/16 11/09/16 11/10/16 15:00 23:00 07:00 Intake Total 1040 ml 360 ml Balance 1040 ml 360 ml Exam Respiratory: clear to auscultation Cardiovascular: regular rate and rhythm Extremities: normal pulses Results Result Diagram: 11/07/16 0436 11/10/16 0454 Results 24 hrs Laboratory Tests Test 11/10/16 04:54 Anion Gap 20 H Blood Urea Nitrogen 68 H Calcium Level 9.9 Carbon Dioxide Level 33 H Chloride Level 93 L Creatinine 6.36 H Glucose Level 99 Potassium Level 5.4 H Sodium Level 141 Medications Medications Current Medications Amantadine HCl (Symmetrel) 100 mg DAILY PO Last administered on 11/10/16 08:21 ; Admin Dose 100 MG; Start 10/23/16 at 09:00 Docusate Sodium (Colace) 100 mg DAILY PO Last administered on 11/10/16 08:21; Admin Dose 100 MG; Start 10/23/16 at 09:00 Folic Acid (Folic Acid) 1 mg DAILY PO Last administered on 11/10/16 08:21; Admin Dose 1 MG; Start 10/23/16 at 09:00 Multivit/Ca Carb/ B Cmplx/FA/Prenat (Germaine-Ane) 1 tab DAILY PO Last administered on 11/10/16 08:20; Admin Dose 1 TAB; Start 10/23/16 at 09:00 Nifedipine (Procardia Xl) 60 mg DAILY PO Last administered on 11/10/16 08:24; Admin Dose 60 MG; Start 10/23/16 at 09:00 Paroxetine HCl (Paxil) 10 mg DAILY PO Last administered on 11/10/16 08:21; Admin Dose 10 MG; Start 10/23/16 at 09:00 Pyridoxine HCl (Vitamin B6) 100 mg DAILY PO Last administered on 11/10/16 08: 21; Admin Dose 100 MG; Start 10/23/16 at 09:00 Tramadol HCl (Ultram) 50 mg Q8H PRN PO PRN; Start 10/23/16 at 02:00 Atorvastatin Calcium (Lipitor) 40 mg DAILY PO Last administered on 11/10/16 08 :20; Admin Dose 40 MG; Start 10/23/16 at 09:00 Morphine Sulfate (morphine) 2 mg Q4H PRN IV PAIN Last administered on 11/04/16 20:12; Admin Dose 2 MG; Start 10/24/16 at 01:00 Aspirin (Aspirin) 81 mg DAILY PO Last administered on 11/10/16 08:21; Admin Dose 81 MG; Start 10/25/16 at 09:00 Hydralazine HCl (Apresoline) 10 mg Q6H PRN IV sbp>160mmhg Last administered on 10/28/16 16:34; Admin Dose 10 MG; Start 10/25/16 at 00:00 Cinacalcet (Sensipar) 90 mg DAILY PO Last administered on 11/10/16 08:21; Admin Dose 90 MG; Start 11/02/16 at 09:00 Ranitidine HCl (Zantac) 150 mg DAILY PO Last administered on 11/10/16 08:20; Admin Dose 150 MG; Start 11/03/16 at 09:00 Polyethylene Glycol (Miralax) 17 gm DAILY PO Last administered on 11/10/16 08: 20; Admin Dose 17 GM; Start 11/07/16 at 12:30 Lubiprostone (Amitiza) 24 mcg BID PO Last administered on 11/10/16t 08:21; Admin Dose 24 MCG; Start 11/07/16 at 14:00 Epoetin Jonah (Epogen (Esrd)) 10,000 units MoWeFr@17 SC ; Start 11/11/16 at 17:00 DEEPAK BERGER MD Nov 10, 2016 15:49
[2016-11-10 19:41] VITALS: BP 127/74; RESP 19
[2016-11-11] VITALS (9 sets, daily range): BP systolic 92–157; BP diastolic 52–95; PULSE 59–66; RESP 16–18
[2016-11-11 05:37] LABS: CREATININE 7.86 mg/dl (0.61-1.24)
[2016-11-11 05:38] LABS: CALCIUM 9.8 mg/dl (8.4-10.2)
[2016-11-11 06:12] LABS: POTASSIUM 6.1 mmol/L (3.5-5.1)
[2016-11-11] MEDS: SEVELAMER 800 MG TAB PO SCH ×3 (08:34→17:36)
[2016-11-11] MEDS: LUBIPROSTONE 24 MCG CAP PO SCH ×2 (08:34→20:14)
[2016-11-11] MEDS: FOLIC ACID 1 MG TAB PO SCH (08:35)
[2016-11-11] MEDS: DOCUSATE SODIUM 100 MG CAP PO SCH (08:35)
[2016-11-11] MEDS: ASPIRIN 81 MG TAB PO SCH (08:35)
[2016-11-11] MEDS: PAROXETINE 10 MG TAB PO SCH (08:36)
[2016-11-11] MEDS: ATORVASTATIN 40 MG TAB PO SCH (08:36)
[2016-11-11] MEDS: POLYETHYLENE GLYCOL 17 GM PACKET PO SCH (08:36)
[2016-11-11] MEDS: NIFEdipine (XL) 60 MG TAB PO SCH (08:36)
[2016-11-11] MEDS: MULTIVIT/CA CARB/B CMPLX/FA TAB PO SCH (08:37)
[2016-11-11] MEDS: CINACALCET 30 MG TAB PO SCH (08:37)
[2016-11-11] MEDS: AMANTADINE 100 MG CAP PO SCH (08:37)
[2016-11-11] MEDS: PYRIDOXINE 50 MG TAB PO SCH (08:37)
[2016-11-11] MEDS: RANITIDINE 150 MG TAB PO SCH (08:37)
--- NOTE | 2016-11-11 14:56 | PN ---
Date/Time of Note Date/Time of Note DATE: 11/11/16 TIME: 14:52 Assessment/Plan VTE Prophylaxis VTE Prophylaxis Intervention: SCD's Lines/Catheters IV C[facility]ter Type (from [facility]): Saline Lock Urinary Cath still in place: No Assessment/Plan Assessment/Plan 1. Dizziness and syncope suspect secondary to acute CVA. Of note patient did have MRI of the brain on 10/15/2016 that did show findings compatible with chronic hemorrhage centered in the right thalamus extending into the right sanford radiata. There is also seen chronic right frontal lacunar infarct. Neurologist following. - Continue antiplatelet therapy, statin medication, as well as physical therapy services. - Continue conservative management 2. Non-ST elevated myocardial infarction. Likely demand ischemia. - Continue current therapy. Cardiologists following. 3. Essential hypertension. Continue on anti-hypertensives and adjust as needed. 4. End-stage renal disease. Continue on dialysis. Monitor renal panel. 5. 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 Continue physical therapy. 6. Anemia of chronic disease. H&H remained stable. We'll monitor. 7. History of major depression. Continue on Paxil 8. History of dyslipidemia. Continue on statin medication 9. Hyperkalemia. cont with HD. monitor level. 10. Awaiting for placement(SNF) per case manager specialist Subjective 24 Hr Interval Summary Free Text/Dictation no event, seen and examined Exam/Review of Systems Vital Signs Vitals Vital Signs Date Time Temp Pulse Resp B/P Pulse Ox O2 Delivery O2 Flow Rate FiO2 11/11/16 12:30 66 11/11/16 09:30 16 11/11/16 07:36 98.2 157/95 95 Intake and Output 11/10/16 11/10/16 11/11/16 15:00 23:00 07:00 Intake Total 690 ml 220 ml Balance 690 ml 220 ml Exam Constitutional: alert, non-verbal Head: atraumatic, normocephalic Eyes: EOMI, PERRL, nl conjunctiva, nl lids, nl sclera ENMT: mucosa pink and moist, nl external ears & nose, nl lips & teeth, nl nasal mucosa & septum Neck: non-tender, supple Respiratory: clear to auscultation, normal air movement Cardiovascular: nl pulses, regular rate and rhythm Gastrointestinal: nl liver, spleen, non-tender, soft Extremities: normal pulses, No calf tenderness, No clubbing, No cyanosis, No edema, No palpable cord, No pitting pedal edema, No tenderness Neurological: confused Skin: nl turgor Lymph: nl lymph nodes Results Result Diagram: 11/07/166 11/11/16 0435 Results 24 hrs Laboratory Tests Test 11/11/16 04:35 Anion Gap 23 H Blood Urea Nitrogen 85 H Calcium Level 9.8 Carbon Dioxide Level 29 Chloride Level 97 Creatinine 7.86 H Glucose Level 85 Potassium Level 6.1 *H Sodium Level 143 Medications Medications Current Medications Amantadine HCl (Symmetrel) 100 mg DAILY PO Last administered on 11/11/16 08:37 ; Admin Dose 100 MG; Start 10/23/16 at 09:00 Docusate Sodium (Colace) 100 mg DAILY PO Last administered on 11/11/16 08:35; Admin Dose 100 MG; Start 10/23/16 at 09:00 Folic Acid (Folic Acid) 1 mg DAILY PO Last administered on 11/11/16 08:35; Admin Dose 1 MG; Start 10/23/16 at 09:00 Multivit/Ca Carb/ B Cmplx/FA/Prenat (Germaine-Nae) 1 tab DAILY PO Last administered on 11/11/16 08:37; Admin Dose 1 TAB; Start 10/23/16 at 09:00 Nifedipine (Procardia Xl) 60 mg DAILY PO Last administered on 11/10/16 08:24; Admin Dose 60 MG; Start 10/23/16 at 09:00 Paroxetine HCl (Paxil) 10 mg DAILY PO Last administered on 11/11/16 08:36; Admin Dose 10 MG; Start 10/23/16 at 09:00 Pyridoxine HCl (Vitamin B6) 100 mg DAILY PO Last administered on 11/11/16 08: 37; Admin Dose 100 MG; Start 10/23/16 at 09:00 Tramadol HCl (Ultram) 50 mg Q8H PRN PO PRN; Start 10/23/16 at 02:00 Atorvastatin Calcium (Lipitor) 40 mg DAILY PO Last administered on 11/11/16 08 :36; Admin Dose 40 MG; Start 10/23/16 at 09:00 Morphine Sulfate (morphine) 2 mg Q4H PRN IV PAIN Last administered on 11/04/16 20:12; Admin Dose 2 MG; Start 10/24/16 at 01:00 Aspirin (Aspirin) 81 mg DAILY PO Last administered on 11/11/16 08:35; Admin Dose 81 MG; Start 10/25/16 at 09:00 Hydralazine HCl (Apresoline) 10 mg Q6H PRN IV sbp>160mmhg Last administered on 10/28/16 16:34; Admin Dose 10 MG; Start 10/25/16 at 00:00 Cinacalcet (Sensipar) 90 mg DAILY PO Last administered on 11/11/16 08:37; Admin Dose 90 MG; Start 11/02/16 at 09:00 Ranitidine HCl (Zantac) 150 mg DAILY PO Last administered on 11/11/16 08:37; Admin Dose 150 MG; Start 11/03/16 at 09:00 Polyethylene Glycol (Miralax) 17 gm DAILY PO Last administered on 11/11/16 08: 36; Admin Dose 17 GM; Start 11/07/16 at 12:30 Lubiprostone (Amitiza) 24 mcg BID PO Last administered on 11/11/16 08:34; Admin Dose 24 MCG; Start 11/07/16 at 14:00 Epoetin Jonah (Epogen (Esrd)) 10,000 units MoWeFr@17 SC ; Start 11/11/16 at 17:00 TANYA PRUETT MD Nov 11, 2016 14:56
[2016-11-11] MEDS: EPOETIN 10000 UNITS/1 ML INJ (ESRD) SC SCH (17:37)
--- NOTE | 2016-11-11 20:01 | CONS ---
Date/Time of Note Date/Time of Note DATE: 11/11/16 TIME: 20:00 Assessment/Plan Assessment/Plan Chief Complaint/Hosp Course IMPRESSION: A 46-year-old unfortunate male with the followin. HTN 2. Evs-VW-crjhlkeyn myocardial infarction. 3. 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 End-stage renal disease, on hemodialysis. 6. Chronic debility from previous cerebrovascular accident. 7. Anemia of chronic kidney disease with associated leukopenia. 8. Chronic depression. 9 HYPERCALCEMIA hx 10 hyperkalemia hx PLAN HD am dc planning per pcp sensipar HD am dc juliet dc arb ck labs KAYEXALATE prn hd renal diet Problems: Consultation Date/Type/Reason Admit Date/Time Oct 23, 2016 at 14:38 Initial Consult Date 10/23/16 Type of Consultation: NEPHROLOGY Referring Provider: KIA FREEDMAN 24 HR Interval Summary Constitutional: no complaints Exam/Review of Systems Vital Signs Vitals Vital Signs Date Time Temp Pulse Resp B/P Pulse Ox O2 Delivery O2 Flow Rate FiO2 11/11/16 12:30 66 11/11/16 09:30 16 11/11/16 07:36 98.2 157/95 95 Intake and Output 11/10/16 11/10/16 11/11/16 15:00 23:00 07:00 Intake Total 690 ml 220 ml Balance 690 ml 220 ml Exam Neck: supple Respiratory: clear to auscultation Cardiovascular: regular rate and rhythm Gastrointestinal: soft Musculoskeletal: nl extremities to inspection Extremities: normal pulses Results Result Diagram: 11/07/16 0436 11/11/16 0435 Results 24 hrs Laboratory Tests Test 11/11/16 04:35 Anion Gap 23 H Blood Urea Nitrogen 85 H Calcium Level 9.8 Carbon Dioxide Level 29 Chloride Level 97 Creatinine 7.86 H Glucose Level 85 Potassium Level 6.1 *H Sodium Level 143 Medications Medications Current Medications Amantadine HCl (Symmetrel) 100 mg DAILY PO Last administered on 11/11/16 08:37 ; Admin Dose 100 MG; Start 10/23/16 at 09:00 Docusate Sodium (Colace) 100 mg DAILY PO Last administered on 11/11/16 08:35; Admin Dose 100 MG; Start 10/23/16 at 09:00 Folic Acid (Folic Acid) 1 mg DAILY PO Last administered on 11/11/16 08:35; Admin Dose 1 MG; Start 10/23/16 at 09:00 Multivit/Ca Carb/ B Cmplx/FA/Prenat (Germaine-Nae) 1 tab DAILY PO Last administered on 11/11/16 08:37; Admin Dose 1 TAB; Start 10/23/16 at 09:00 Nifedipine (Procardia Xl) 60 mg DAILY PO Last administered on 11/10/16 08:24; Admin Dose 60 MG; Start 10/23/16 at 09:00 Paroxetine HCl (Paxil) 10 mg DAILY PO Last administered on 11/11/16 08:36; Admin Dose 10 MG; Start 10/23/16 at 09:00 Pyridoxine HCl (Vitamin B6) 100 mg DAILY PO Last administered on 11/11/16 08: 37; Admin Dose 100 MG; Start 10/23/16 at 09:00 Tramadol HCl (Ultram) 50 mg Q8H PRN PO PRN; Start 10/23/16 at 02:00 Atorvastatin Calcium (Lipitor) 40 mg DAILY PO Last administered on 11/11/16 08 :36; Admin Dose 40 MG; Start 10/23/16 at 09:00 Morphine Sulfate (morphine) 2 mg Q4H PRN IV PAIN Last administered on 11/04/16 20:12; Admin Dose 2 MG; Start 10/24/16 at 01:00 Aspirin (Aspirin) 81 mg DAILY PO Last administered on 11/11/16 08:35; Admin Dose 81 MG; Start 10/25/16 at 09:00 Hydralazine HCl (Apresoline) 10 mg Q6H PRN IV sbp>160mmhg Last administered on 10/28/16 16:34; Admin Dose 10 MG; Start 10/25/16 at 00:00 Cinacalcet (Sensipar) 90 mg DAILY PO Last administered on 11/11/16 08:37; Admin Dose 90 MG; Start 11/02/16 at 09:00 Ranitidine HCl (Zantac) 150 mg DAILY PO Last administered on 11/11/16 08:37; Admin Dose 150 MG; Start 11/03/16 at 09:00 Polyethylene Glycol (Miralax) 17 gm DAILY PO Last administered on 11/11/16 08: 36; Admin Dose 17 GM; Start 11/07/16 at 12:30 Lubiprostone (Amitiza) 24 mcg BID PO Last administered on 11/11/16 08:34; Admin Dose 24 MCG; Start 11/07/16 at 14:00 Epoetin Jonah (Epogen (Esrd)) 10,000 units MoWeFr@17 SC Last administered on 17:37; Admin Dose 10,000 UNITS; Start 11/11/16 at 17:00 DEEPAK BERGER MD Nov 11, 2016 20:01
[2016-11-12 06:17] LABS: POTASSIUM 4.8 mmol/L (3.5-5.1)
[2016-11-12 06:20] LABS: CREATININE 5.51 mg/dl (0.61-1.24)
[2016-11-12 06:21] LABS: CALCIUM 9.4 mg/dl (8.4-10.2)
[2016-11-12] MEDS: NIFEdipine (XL) 60 MG TAB PO SCH ×2 (09:00→11:00)
[2016-11-12] MEDS: POLYETHYLENE GLYCOL 17 GM PACKET PO SCH (09:35)
[2016-11-12] MEDS: DOCUSATE SODIUM 100 MG CAP PO SCH (09:35)
[2016-11-12] MEDS: SEVELAMER 800 MG TAB PO SCH ×3 (09:36→17:22)
[2016-11-12] MEDS: CINACALCET 30 MG TAB PO SCH (09:36)
[2016-11-12] MEDS: RANITIDINE 150 MG TAB PO SCH (09:36)
[2016-11-12] MEDS: ASPIRIN 81 MG TAB PO SCH (09:36)
[2016-11-12] MEDS: FOLIC ACID 1 MG TAB PO SCH (09:36)
[2016-11-12] MEDS: PAROXETINE 10 MG TAB PO SCH (09:36)
[2016-11-12] MEDS: MULTIVIT/CA CARB/B CMPLX/FA TAB PO SCH (09:37)
[2016-11-12] MEDS: LUBIPROSTONE 24 MCG CAP PO SCH ×2 (09:37→22:17)
[2016-11-12] MEDS: ATORVASTATIN 40 MG TAB PO SCH (09:37)
[2016-11-12] MEDS: AMANTADINE 100 MG CAP PO SCH (09:37)
[2016-11-12] MEDS: PYRIDOXINE 50 MG TAB PO SCH (09:43)
--- NOTE | 2016-11-12 12:11 | PN ---
Date/Time of Note Date/Time of Note DATE: 11/12/16 TIME: 12:09 Assessment/Plan VTE Prophylaxis VTE Prophylaxis Intervention: LMWH Lines/Catheters [facility] Saline Lock Urinary Cath still in place: No Assessment/Plan Assessment/Plan 1. Dizziness and syncope suspect secondary to acute CVA. stable 2. Non-ST elevated myocardial infarction. Likely demand ischemia. - Continue current therapy. Cardiologists following. 3. Essential hypertension. Continue on anti-hypertensives and adjust as needed. 4. End-stage renal disease. Continue on dialysis. Monitor renal panel. 5. 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 Continue physical therapy. 6. Anemia of chronic disease. H&H remained stable. We'll monitor. 7. History of major depression. Continue on Paxil 8. History of dyslipidemia. Continue on statin medication 9. Hyperkalemia. cont with HD. monitor level. 10. Awaiting for placement(SNF) per behavioral health case manager Subjective 24 Hr Interval Summary Free Text/Dictation comfortable Exam/Review of Systems Vital Signs Vitals Vital Signs Date Time Temp Pulse Resp B/P Pulse Ox O2 Delivery O2 Flow Rate FiO2 11/11/16 20:01 98.6 76 18 138/89 98 Intake and Output 11/11/16 11/11/16 11/12/16 14:59 22:59 06:59 Intake Total 500 ml 440 ml 240 ml Output Total 1500 ml 1000 ml Balance -1000 ml -560 ml 240 ml Exam Constitutional: alert, oriented, well developed Head: atraumatic, normocephalic Eyes: EOMI, PERRL, nl conjunctiva, nl lids, nl sclera ENMT: mucosa pink and moist, nl external ears & nose, nl lips & teeth, nl nasal mucosa & septum Neck: non-tender, supple Respiratory: clear to auscultation, normal air movement Cardiovascular: nl pulses, regular rate and rhythm Gastrointestinal: nl liver, spleen, non-tender, soft, No ascites, No bowel sounds, No distended, No firm, No hepatomegaly, No mass , No rebound or guarding, No splenomegaly, No surgical scars, No tender Neurological: SNOW GROOMER II-XII intact, nl speech, other (1/5 on LUE, 3/5 LLE) Skin: nl turgor, rash or lesions Lymph: nl lymph nodes Results Result Diagram: 11/12/16 0435 Results 24 hrs Laboratory Tests Test 11/12/16 04:35 11/12/16 08:25 11/12/16 11:54 Anion Gap 19 H Blood Urea Nitrogen 49 #H Calcium Level 9.4 Carbon Dioxide Level 29 Chloride Level 97 Creatinine 5.51 #H Glucose Level 82 Potassium Level 4.8 Sodium Level 140 Bedside Glucose 110 100 Medications Medications Current Medications Amantadine HCl (Symmetrel) 100 mg DAILY PO Last administered on 11/12/16 09:37 ; Admin Dose 100 MG; Start 10/23/16 at 09:00 Docusate Sodium (Colace) 100 mg DAILY PO Last administered on 11/12/16 09:35; Admin Dose 100 MG; Start 10/23/16 at 09:00 Folic Acid (Folic Acid) 1 mg DAILY PO Last administered on 11/12/16 09:36; Admin Dose 1 MG; Start 10/23/16 at 09:00 Multivit/Ca Carb/ B Cmplx/FA/Prenat (Germaine-Nae) 1 tab DAILY PO Last administered on 11/12/16 09:37; Admin Dose 1 TAB; Start 10/23/16 at 09:00 Nifedipine (Procardia Xl) 60 mg DAILY PO Last administered on 11/10/16 08:24; Admin Dose 60 MG; Start 10/23/16 at 09:00 Paroxetine HCl (Paxil) 10 mg DAILY PO Last administered on 11/12/16 09:36; Admin Dose 10 MG; Start 10/23/16 at 09:00 Pyridoxine HCl (Vitamin B6) 100 mg DAILY PO Last administered on 11/12/16 09: 43; Admin Dose 100 MG; Start 10/23/16 at 09:00 Tramadol HCl (Ultram) 50 mg Q8H PRN PO PRN; Start 10/23/16 at 02:00 Atorvastatin Calcium (Lipitor) 40 mg DAILY PO Last administered on 11/12/16 09 :37; Admin Dose 40 MG; Start 10/23/16 at 09:00 Morphine Sulfate (morphine) 2 mg Q4H PRN IV PAIN Last administered on 11/04/16 20:12; Admin Dose 2 MG; Start 10/24/16 at 01:00 Aspirin (Aspirin) 81 mg DAILY PO Last administered on 11/12/16 09:36; Admin Dose 81 MG; Start 10/25/16 at 09:00 Hydralazine HCl (Apresoline) 10 mg Q6H PRN IV sbp>160mmhg Last administered on 10/28/16 16:34; Admin Dose 10 MG; Start 10/25/16 at 00:00 Cinacalcet (Sensipar) 90 mg DAILY PO Last administered on 11/12/16 09:36; Admin Dose 90 MG; Start 11/02/16 at 09:00 Ranitidine HCl (Zantac) 150 mg DAILY PO Last administered on 11/12/16 09:36; Admin Dose 150 MG; Start 11/03/16 at 09:00 Polyethylene Glycol (Miralax) 17 gm DAILY PO Last administered on 11/12/16 09: 35; Admin Dose 17 GM; Start 11/07/16 at 12:30 Lubiprostone (Amitiza) 24 mcg BID PO Last administered on 11/12/16 09:37; Admin Dose 24 MCG; Start 11/07/16 at 14:00 Epoetin Jonah (Epogen (Esrd)) 10,000 units MoWeFr@17 SC Last administered on 17:37; Admin Dose 10,000 UNITS; Start 11/11/16 at 17:00 TANYA PRUETT MD Nov 12, 2016 12:11
--- NOTE | 2016-11-12 15:25 | CONS ---
Date/Time of Note Date/Time of Note DATE: 11/12/16 TIME: 15:24 Assessment/Plan Assessment/Plan Chief Complaint/Hosp Course IMPRESSION: A 46-year-old unfortunate male with the followin. HTN 2. [id number] myocardial infarction. 3. 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 End-stage renal disease, on hemodialysis. 6. Chronic debility from previous cerebrovascular accident. 7. Anemia of chronic kidney disease with associated leukopenia. 8. Chronic depression. 9 HYPERCALCEMIA hx 10 hyperkalemia hx better PLAN HD am dc planning per pcp sensipar HD am dc juliet dc arb ck labs KAYEXALATE prn hd renal diet Problems: Consultation Date/Type/Reason Admit Date/Time Oct 23, 2016 at 14:38 Initial Consult Date 10/23/16 Type of Consultation: NEPHROLOGY Referring Provider: KIA FREEDMAN 24 HR Interval Summary Constitutional: no complaints Exam/Review of Systems Vital Signs Vitals Vital Signs Date Time Temp Pulse Resp B/P Pulse Ox O2 Delivery O2 Flow Rate FiO2 11/11/16 20:01 98.6 76 18 138/89 98 Intake and Output 11/11/16 11/11/16 11/12/16 15:00 23:00 07:00 Intake Total 500 ml 440 ml 240 ml Output Total 1500 ml 1000 ml Balance -1000 ml -560 ml 240 ml Exam Respiratory: clear to auscultation Cardiovascular: regular rate and rhythm Gastrointestinal: soft Musculoskeletal: nl extremities to inspection Extremities: normal pulses Results Result Diagram: 11/12/16 0435 Results 24 hrs Laboratory Tests Test 11/12/16 04:35 11/12/16 08:25 11/12/16 11:54 Anion Gap 19 H Blood Urea Nitrogen 49 #H Calcium Level 9.4 Carbon Dioxide Level 29 Chloride Level 97 Creatinine 5.51 #H Glucose Level 82 Potassium Level 4.8 Sodium Level 140 Bedside Glucose 110 100 Medications Medications Current Medications Amantadine HCl (Symmetrel) 100 mg DAILY PO Last administered on 11/12/16 09:37 ; Admin Dose 100 MG; Start 10/23/16 at 09:00 Docusate Sodium (Colace) 100 mg DAILY PO Last administered on 11/12/16 09:35; Admin Dose 100 MG; Start 10/23/16 at 09:00 Folic Acid (Folic Acid) 1 mg DAILY PO Last administered on 11/12/16 09:36; Admin Dose 1 MG; Start 10/23/16 at 09:00 Multivit/Ca Carb/ B Cmplx/FA/Prenat (Germaine-Nae) 1 tab DAILY PO Last administered on 11/12/16 09:37; Admin Dose 1 TAB; Start 10/23/16 at 09:00 Nifedipine (Procardia Xl) 60 mg DAILY PO Last administered on 11/12/16 11:00; Admin Dose 60 MG; Start 10/23/16 at 09:00 Paroxetine HCl (Paxil) 10 mg DAILY PO Last administered on 11/12/16 09:36; Admin Dose 10 MG; Start 10/23/16 at 09:00 Pyridoxine HCl (Vitamin B6) 100 mg DAILY PO Last administered on 11/12/16 09: 43; Admin Dose 100 MG; Start 10/23/16 at 09:00 Tramadol HCl (Ultram) 50 mg Q8H PRN PO PRN; Start 10/23/16 at 02:00 Atorvastatin Calcium (Lipitor) 40 mg DAILY PO Last administered on 11/12/16 09 :37; Admin Dose 40 MG; Start 10/23/16 at 09:00 Morphine Sulfate (morphine) 2 mg Q4H PRN IV PAIN Last administered on 11/04/16 20:12; Admin Dose 2 MG; Start 10/24/16 at 01:00 Aspirin (Aspirin) 81 mg DAILY PO Last administered on 11/12/16 09:36; Admin Dose 81 MG; Start 10/25/16 at 09:00 Hydralazine HCl (Apresoline) 10 mg Q6H PRN IV sbp>160mmhg Last administered on 10/28/16 16:34; Admin Dose 10 MG; Start 10/25/16 at 00:00 Cinacalcet (Sensipar) 90 mg DAILY PO Last administered on 11/12/16 09:36; Admin Dose 90 MG; Start 11/02/16 at 09:00 Ranitidine HCl (Zantac) 150 mg DAILY PO Last administered on 11/12/16 09:36; Admin Dose 150 MG; Start 11/03/16 at 09:00 Polyethylene Glycol (Miralax) 17 gm DAILY PO Last administered on 11/12/16 09: 35; Admin Dose 17 GM; Start 11/07/16 at 12:30 Lubiprostone (Amitiza) 24 mcg BID PO Last administered on 11/12/16 09:37; Admin Dose 24 MCG; Start 11/07/16 at 14:00 Epoetin Jonah (Epogen (Esrd)) 10,000 units MoWeFr@17 SC Last administered on 17:37; Admin Dose 10,000 UNITS; Start 11/11/16 at 17:00 DEEPAK BERGER MD Nov 12, 2016 15:25
[2016-11-12 20:29] VITALS: BP 153/86; RESP 18
[2016-11-13] VITALS (9 sets, daily range): BP systolic 98–135; BP diastolic 39–83; PULSE 65–71; RESP 16–18
[2016-11-13] MEDS: DOCUSATE SODIUM 100 MG CAP PO SCH (09:20)
[2016-11-13] MEDS: RANITIDINE 150 MG TAB PO SCH (09:21)
[2016-11-13] MEDS: SEVELAMER 800 MG TAB PO SCH ×3 (09:21→18:29)
[2016-11-13] MEDS: AMANTADINE 100 MG CAP PO SCH (09:21)
[2016-11-13] MEDS: ASPIRIN 81 MG TAB PO SCH (09:21)
[2016-11-13] MEDS: MULTIVIT/CA CARB/B CMPLX/FA TAB PO SCH (09:21)
[2016-11-13] MEDS: LUBIPROSTONE 24 MCG CAP PO SCH ×2 (09:21→20:37)
[2016-11-13] MEDS: ATORVASTATIN 40 MG TAB PO SCH (09:21)
[2016-11-13] MEDS: CINACALCET 30 MG TAB PO SCH (09:21)
[2016-11-13] MEDS: FOLIC ACID 1 MG TAB PO SCH (09:21)
[2016-11-13] MEDS: PYRIDOXINE 50 MG TAB PO SCH (09:21)
[2016-11-13] MEDS: POLYETHYLENE GLYCOL 17 GM PACKET PO SCH (09:22)
[2016-11-13] MEDS: NIFEdipine (XL) 60 MG TAB PO SCH (09:22)
[2016-11-13] MEDS: PAROXETINE 10 MG TAB PO SCH (09:24)
--- NOTE | 2016-11-13 15:56 | PN ---
Date/Time of Note Date/Time of Note DATE: 11/13/16 TIME: 15:52 Assessment/Plan VTE Prophylaxis VTE Prophylaxis Intervention: heparin Lines/Catheters IV Catheter Type (from [facility]): Saline Lock Urinary Cath still in place: No Assessment/Plan Assessment/Plan 1. Dizziness and syncope suspect secondary to acute CVA. stable 2. Non-ST elevated myocardial infarction. Likely demand ischemia. - Continue current therapy. Cardiologists following. 3. Essential hypertension. Continue on anti-hypertensives and adjust as needed. 4. End-stage renal disease. Continue on dialysis. Monitor renal panel. 5. 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 Continue physical therapy. 6. Anemia of chronic disease. H&H remained stable. We'll monitor. 7. History of major depression. Continue on Paxil 8. History of dyslipidemia. Continue on statin medication 9. Hyperkalemia. cont with HD. monitor level. 10. Awaiting for placement(SNF) per child welfare caseworker Subjective 24 Hr Interval Summary Free Text/Dictation no new complaints Exam/Review of Systems Vital Signs Vitals Vital Signs Date Time Temp Pulse Resp B/P Pulse Ox O2 Delivery O2 Flow Rate FiO2 11/13/16 07:58 97.0 61 16 135/83 100 Intake and Output 11/12/16 11/12/16 11/13/16 15:00 23:00 07:00 Intake Total 1120 ml Balance 1120 ml Exam Constitutional: alert, oriented, well developed Head: atraumatic, normocephalic Eyes: EOMI, PERRL, nl conjunctiva, nl lids, nl sclera ENMT: mucosa pink and moist, nl external ears & nose, nl lips & teeth, nl nasal mucosa & septum Neck: non-tender, supple Respiratory: clear to auscultation, normal air movement Cardiovascular: nl pulses, regular rate and rhythm, No S3, No S4, No bruits, No diastolic murmur, No edema, No gallop, No irregular rhythm, No jugular venous distention (JVD), No murmurs/extra sounds, No rub, No systolic murmur Gastrointestinal: nl liver, spleen, non-tender, soft Musculoskeletal: nl extremities to inspection Neurological: FILAMENT COIL WINDER II-XII intact, nl mental status, nl speech, other (3/5 on LLE , 1/5 on LUE) Skin: nl turgor, rash or lesions Lymph: nl lymph nodes Results Result Diagram: 11/12/16 0435 Results 24 hrs Laboratory Tests Test 11/12/16 17:06 Bedside Glucose 128 Medications Medications Current Medications Amantadine HCl (Symmetrel) 100 mg DAILY PO Last administered on 11/13/16 09:21 ; Admin Dose 100 MG; Start 10/23/16 at 09:00 Docusate Sodium (Colace) 100 mg DAILY PO Last administered on 11/13/16 09:20; Admin Dose 100 MG; Start 10/23/16 at 09:00 Folic Acid (Folic Acid) 1 mg DAILY PO Last administered on 11/13/16 09:21; Admin Dose 1 MG; Start 10/23/16 at 09:00 Multivit/Ca Carb/ B Cmplx/FA/Prenat (Germaine-Nae) 1 tab DAILY PO Last administered on 11/13/16 09:21; Admin Dose 1 TAB; Start 10/23/16 at 09:00 Nifedipine (Procardia Xl) 60 mg DAILY PO Last administered on 11/13/16 09:22; Admin Dose 60 MG; Start 10/23/16 at 09:00 Paroxetine HCl (Paxil) 10 mg DAILY PO Last administered on 11/13/16 09:24; Admin Dose 10 MG; Start 10/23/16 at 09:00 Pyridoxine HCl (Vitamin B6) 100 mg DAILY PO Last administered on 11/13/16 09: 21; Admin Dose 100 MG; Start 10/23/16 at 09:00 Tramadol HCl (Ultram) 50 mg Q8H PRN PO PRN; Start 10/23/16 at 02:00 Atorvastatin Calcium (Lipitor) 40 mg DAILY PO Last administered on 11/13/16 09 :21; Admin Dose 40 MG; Start 10/23/16 at 09:00 Morphine Sulfate (morphine) 2 mg Q4H PRN IV PAIN Last administered on 11/04/16 20:12; Admin Dose 2 MG; Start 10/24/16 at 01:00 Aspirin (Aspirin) 81 mg DAILY PO Last administered on 11/13/16 09:21; Admin Dose 81 MG; Start 10/25/16 at 09:00 Hydralazine HCl (Apresoline) 10 mg Q6H PRN IV sbp>160mmhg Last administered on 10/28/16 16:34; Admin Dose 10 MG; Start 10/25/16 at 00:00 Cinacalcet (Sensipar) 90 mg DAILY PO Last administered on 11/13/16 09:21; Admin Dose 90 MG; Start 11/02/16 at 09:00 Ranitidine HCl (Zantac) 150 mg DAILY PO Last administered on 11/13/16 09:21; Admin Dose 150 MG; Start 11/03/16 at 09:00 Polyethylene Glycol (Miralax) 17 gm DAILY PO Last administered on 11/13/16 09: 22; Admin Dose 17 GM; Start 11/07/16 at 12:30 Lubiprostone (Amitiza) 24 mcg BID PO Last administered on 11/13/16 09:21; Admin Dose 24 MCG; Start 11/07/16 at 14:00 Epoetin Jonah (Epogen (Esrd)) 10,000 units MoWeFr@17 SC Last administered on 17:37; Admin Dose 10,000 UNITS; Start 11/11/16 at 17:00 TANYA PRUETT MD Nov 13, 2016 15:56
[2016-11-13] MEDS: EPOETIN 10000 UNITS/1 ML INJ (ESRD) SC SCH (18:30)
--- NOTE | 2016-11-13 19:59 | CONS ---
Date/Time of Note Date/Time of Note DATE: 11/13/16 TIME: 19:58 Assessment/Plan Assessment/Plan Chief Complaint/Hosp Course IMPRESSION: A 46-year-old unfortunate male with the followin. HTN 2. [id number]-aivxyrdwf myocardial infarction. 3. 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 4. 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 End-stage renal disease, on hemodialysis. 6. Chronic debility from previous cerebrovascular accident. 7. Anemia of chronic kidney disease with associated leukopenia. 8. Chronic depression. 9 HYPERCALCEMIA hx 10 hyperkalemia hx better PLAN HD am dc planning per pcp sensipar HD am dc juliet dc arb ck labs KAYEXALATE prn hd renal diet Problems: Consultation Date/Type/Reason Admit Date/Time Oct 23, 2016 at 14:38 Initial Consult Date 10/23/16 Type of Consultation: NEPHROLOGY Referring Provider: KIA FREEDMAN 24 HR Interval Summary Constitutional: no complaints Exam/Review of Systems Vital Signs Vitals Vital Signs Date Time Temp Pulse Resp B/P Pulse Ox O2 Delivery O2 Flow Rate FiO2 11/13/16 19:30 69 11/13/16 17:00 18 11/13/16 07:58 97.0 135/83 100 Intake and Output 11/12/16 11/12/16 11/13/16 15:00 23:00 07:00 Intake Total 1120 ml Balance 1120 ml Exam Cardiovascular: regular rate and rhythm Gastrointestinal: soft Musculoskeletal: nl extremities to inspection Extremities: normal pulses Results Result Diagram: 11/12/16 0435 Medications Medications Current Medications Amantadine HCl (Symmetrel) 100 mg DAILY PO Last administered on 11/13/16 09:21 ; Admin Dose 100 MG; Start 10/23/16 at 09:00 Docusate Sodium (Colace) 100 mg DAILY PO Last administered on 11/13/16 09:20; Admin Dose 100 MG; Start 10/23/16 at 09:00 Folic Acid (Folic Acid) 1 mg DAILY PO Last administered on 11/13/16 09:21; Admin Dose 1 MG; Start 10/23/16 at 09:00 Multivit/Ca Carb/ B Cmplx/FA/Prenat (Germaine-Nae) 1 tab DAILY PO Last administered on 11/13/16 09:21; Admin Dose 1 TAB; Start 10/23/16 at 09:00 Nifedipine (Procardia Xl) 60 mg DAILY PO Last administered on 11/13/16 09:22; Admin Dose 60 MG; Start 10/23/16 at 09:00 Paroxetine HCl (Paxil) 10 mg DAILY PO Last administered on 11/13/16 09:24; Admin Dose 10 MG; Start 10/23/16 at 09:00 Pyridoxine HCl (Vitamin B6) 100 mg DAILY PO Last administered on 11/13/16 09: 21; Admin Dose 100 MG; Start 10/23/16 at 09:00 Tramadol HCl (Ultram) 50 mg Q8H PRN PO PRN; Start 10/23/16 at 02:00 Atorvastatin Calcium (Lipitor) 40 mg DAILY PO Last administered on 11/13/16 09 :21; Admin Dose 40 MG; Start 10/23/16 at 09:00 Morphine Sulfate (morphine) 2 mg Q4H PRN IV PAIN Last administered on 11/04/16 20:12; Admin Dose 2 MG; Start 10/24/16 at 01:00 Aspirin (Aspirin) 81 mg DAILY PO Last administered on 11/13/16 09:21; Admin Dose 81 MG; Start 10/25/16 at 09:00 Hydralazine HCl (Apresoline) 10 mg Q6H PRN IV sbp>160mmhg Last administered on 10/28/16 16:34; Admin Dose 10 MG; Start 10/25/16 at 00:00 Cinacalcet (Sensipar) 90 mg DAILY PO Last administered on 11/13/16 09:21; Admin Dose 90 MG; Start 11/02/16 at 09:00 Ranitidine HCl (Zantac) 150 mg DAILY PO Last administered on 11/13/16 09:21; Admin Dose 150 MG; Start 11/03/16 at 09:00 Polyethylene Glycol (Miralax) 17 gm DAILY PO Last administered on 11/13/16 09: 22; Admin Dose 17 GM; Start 11/07/16 at 12:30 Lubiprostone (Amitiza) 24 mcg BID PO Last administered on 11/13/16 09:21; Admin Dose 24 MCG; Start 11/07/16 at 14:00 Epoetin Jonah (Epogen (Esrd)) 10,000 units MoWeFr@17 SC Last administered on t 18:30; Admin Dose 10,000 UNITS; Start 11/11/16 at 17:00 Heparin Sodium (Porcine) (Heparin (5000 Units/0.5 ml)) 5,000 unit BID SC ; Start 11/13/16 at 21:00 DEEPAK BERGER MD Nov 13, 2016 19:59
[2016-11-13] MEDS: HEPARIN 5,000 UNIT/0.5 ML SYG SC SCH (20:36)
[2016-11-14 06:03] LABS: BASOPHILS % 0.3 % (0.0-2.0); EOSINOPHILS % 0.6 % (0.0-7.0); HEMOGLOBIN 8.8 g/dl (14.0-18.0); LYMPHOCYTES # 0.3 10^3/ul (0.8-2.9); LYMPHOCYTES % 6.8 % (15.0-51.0); MEAN CORPUSCULAR HEMOGLOBIN 32.3 pg (29.0-33.0); MEAN CORPUSCULAR HGB CONC 33.8 g/dl (32.0-37.0); MEAN CORPUSCULAR VOLUME 95.4 fl (82.0-101.0); MEAN PLATELET VOLUME 7.8 fl (7.4-10.4); MONOCYTE # 0.7 10^3/ul (0.3-0.9); MONOCYTES % 14.9 % (0.0-11.0); NEUTROPHIL # 3.8 10^3/ul (1.6-7.5); NEUTROPHILS % 77.4 % (39.0-77.0); PLATELET COUNT 249 10^3/UL (140-440); RED BLOOD COUNT 2.72 10^6/ul (4.70-6.10); RED CELL DISTRIBUTION WIDTH 13.3 % (11.5-14.5); UNCORRECTED WBC 4.9 10^3/ul (4.8-10.8); WHITE BLOOD COUNT 4.9 10^3/ul (4.8-10.8)
[2016-11-14 06:13] LABS: CONDITION 1
[2016-11-14 06:23] LABS: POTASSIUM 5.3 mmol/L (3.5-5.1)
[2016-11-14 06:25] LABS: CREATININE 5.62 mg/dl (0.61-1.24)
[2016-11-14 06:26] LABS: CALCIUM 9.4 mg/dl (8.4-10.2)
[2016-11-14 07:52] VITALS: BP 143/79; RESP 18
[2016-11-14] MEDS: SEVELAMER 800 MG TAB PO SCH ×3 (08:19→17:41)
[2016-11-14] MEDS: RANITIDINE 150 MG TAB PO SCH (08:19)
[2016-11-14] MEDS: PYRIDOXINE 50 MG TAB PO SCH (08:19)
[2016-11-14] MEDS: PAROXETINE 10 MG TAB PO SCH (08:19)
[2016-11-14] MEDS: ASPIRIN 81 MG TAB PO SCH (08:19)
[2016-11-14] MEDS: CINACALCET 30 MG TAB PO SCH (08:19)
[2016-11-14] MEDS: AMANTADINE 100 MG CAP PO SCH (08:20)
[2016-11-14] MEDS: ATORVASTATIN 40 MG TAB PO SCH (08:20)
[2016-11-14] MEDS: LUBIPROSTONE 24 MCG CAP PO SCH (08:20)
[2016-11-14] MEDS: MULTIVIT/CA CARB/B CMPLX/FA TAB PO SCH (08:20)
[2016-11-14] MEDS: NIFEdipine (XL) 60 MG TAB PO SCH (08:20)
[2016-11-14] MEDS: FOLIC ACID 1 MG TAB PO SCH (08:20)
[2016-11-14] MEDS: DOCUSATE SODIUM 100 MG CAP PO SCH (08:20)
[2016-11-14] MEDS: POLYETHYLENE GLYCOL 17 GM PACKET PO SCH (08:21)
[2016-11-14] MEDS: HEPARIN 5,000 UNIT/0.5 ML SYG SC SCH (08:22)
--- NOTE | 2016-11-14 15:03 | PN ---
Date/Time of Note Date/Time of Note DATE: 11/14/16 TIME: 15:01 Assessment/Plan VTE Prophylaxis VTE Prophylaxis Intervention: heparin Lines/Catheters IV Catheter Type (from Nrs): Peripheral IV Urinary Cath still in place: No Assessment/Plan Assessment/Plan 1. Dizziness and syncope suspect secondary to acute CVA. stable 2. Non-ST elevated myocardial infarction. Likely demand ischemia. - Continue current therapy. Cardiologists following. 3. Essential hypertension. Continue on anti-hypertensives and adjust as needed. 4. End-stage renal disease. Continue on dialysis. Monitor renal panel. 5. 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 Continue physical therapy. 6. Anemia of chronic disease. H&H remained stable. We'll monitor. 7. History of major depression. Continue on Paxil 8. History of dyslipidemia. Continue on statin medication 9. Hyperkalemia. cont with HD. monitor level. 10. Awaiting for placement(SNF) per family preservation caseworker Exam/Review of Systems Vital Signs Vitals Vital Signs Date Time Temp Pulse Resp B/P Pulse Ox O2 Delivery O2 Flow Rate FiO2 11/14/16 07:52 98.4 52 18 143/79 100 Intake and Output 11/13/16 11/13/16 11/14/16 15:00 23:00 07:00 Intake Total 200 ml 1200 ml 360 ml Output Total 1900 ml 50 ml Balance 200 ml -700 ml 310 ml Exam Constitutional: alert, oriented, well developed Psych: nl mood/affect, no complaints Head: atraumatic, normocephalic Eyes: EOMI, PERRL, nl conjunctiva, nl lids, nl sclera ENMT: mucosa pink and moist, nl external ears & nose, nl lips & teeth, nl nasal mucosa & septum Neck: non-tender, supple Respiratory: clear to auscultation, normal air movement, No congested cough, No crackles/rales, No diminished breath sounds, No intercostal retraction, No labored breathing, No respirations, No tactile fremitus, No wheezing Cardiovascular: nl pulses, regular rate and rhythm, No S3, No S4, No bruits, No diastolic murmur, No edema, No gallop, No irregular rhythm, No jugular venous distention (JVD), No murmurs/extra sounds, No rub, No systolic murmur Gastrointestinal: nl liver, spleen, non-tender, soft, No ascites, No bowel sounds, No distended, No firm, No hepatomegaly, No mass , No rebound or guarding, No splenomegaly, No surgical scars, No tender Musculoskeletal: nl extremities to inspection Extremities: normal pulses, No calf tenderness, No clubbing, No cyanosis, No edema, No palpable cord, No pitting pedal edema, No tenderness 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, nl mental status, nl speech Skin: nl turgor, rash or lesions Lymph: nl lymph nodes Results Result Diagram: 11/14/1651311/14/16513 Results 24 hrs Laboratory Tests Test 11/14/16 05:14 Anion Gap 23 H Basophils # 0.0 Basophils % 0.3 Blood Urea Nitrogen 50 H Calcium Level 9.4 Carbon Dioxide Level 25 Chloride Level 96 L Creatinine 5.62 H Eosinophils # 0.0 Eosinophils % 0.6 Glucose Level 94 Hematocrit 26.0 L Hemoglobin 8.8 L Lymphocytes # 0.3 L Lymphocytes % 6.8 L Mean Corpuscular Hemoglobin 32.3 Mean Corpuscular Hemoglobin Concent 33.8 Mean Corpuscular Volume 95.4 Mean Platelet Volume 7.8 Monocytes # 0.7 Monocytes % 14.9 H Neutrophils # 3.8 Neutrophils % 77.4 H Nucleated Red Blood Cells # 0.0 Nucleated Red Blood Cells % 0.0 Platelet Count 249 Potassium Level 5.3 H Red Blood Count 2.72 L Red Cell Distribution Width 13.3 Sodium Level 139 White Blood Count 4.9 # Medications Medications Current Medications Amantadine HCl (Symmetrel) 100 mg DAILY PO Last administered on 11/14/16 08:20 ; Admin Dose 100 MG; Start 10/23/16 at 09:00 Docusate Sodium (Colace) 100 mg DAILY PO Last administered on 11/14/16 08:20; Admin Dose 100 MG; Start 10/23/16 at 09:00 Folic Acid (Folic Acid) 1 mg DAILY PO Last administered on 11/14/16 08:20; Admin Dose 1 MG; Start 10/23/16 at 09:00 Multivit/Ca Carb/ B Cmplx/FA/Prenat (Germaine-Nae) 1 tab DAILY PO Last administered on 11/14/16 08:20; Admin Dose 1 TAB; Start 10/23/16 at 09:00 Nifedipine (Procardia Xl) 60 mg DAILY PO Last administered on 11/14/16 08:20; Admin Dose 60 MG; Start 10/23/16 at 09:00 Paroxetine HCl (Paxil) 10 mg DAILY PO Last administered on 11/14/16 08:19; Admin Dose 10 MG; Start 10/23/16 at 09:00 Pyridoxine HCl (Vitamin B6) 100 mg DAILY PO Last administered on 11/14/16 08: 19; Admin Dose 100 MG; Start 10/23/16 at 09:00 Tramadol HCl (Ultram) 50 mg Q8H PRN PO PRN; Start 10/23/16 at 02:00 Atorvastatin Calcium (Lipitor) 40 mg DAILY PO Last administered on 11/14/16 08 :20; Admin Dose 40 MG; Start 10/23/16 at 09:00 Morphine Sulfate (morphine) 2 mg Q4H PRN IV PAIN Last administered on 11/04/16 20:12; Admin Dose 2 MG; Start 10/24/16 at 01:00 Aspirin (Aspirin) 81 mg DAILY PO Last administered on 11/14/16 08:19; Admin Dose 81 MG; Start 10/25/16 at 09:00 Hydralazine HCl (Apresoline) 10 mg Q6H PRN IV sbp>160mmhg Last administered on 10/28/16 16:34; Admin Dose 10 MG; Start 10/25/16 at 00:00 Cinacalcet (Sensipar) 90 mg DAILY PO Last administered on 11/14/16 08:19; Admin Dose 90 MG; Start 11/02/16 at 09:00 Ranitidine HCl (Zantac) 150 mg DAILY PO Last administered on 11/14/16 08:19; Admin Dose 150 MG; Start 11/03/16 at 09:00 Polyethylene Glycol (Miralax) 17 gm DAILY PO Last administered on 11/13/16 09: 22; Admin Dose 17 GM; Start 11/07/16 at 12:30 Lubiprostone (Amitiza) 24 mcg BID PO Last administered on 11/14/16 08:20; Admin Dose 24 MCG; Start 11/07/16 at 14:00 Epoetin Jonah (Epogen (Esrd)) 10,000 units MoWeFr@17 SC Last administered on 18:30; Admin Dose 10,000 UNITS; Start 11/11/16 at 17:00 Heparin Sodium (Porcine) (Heparin (5000 Units/0.5 ml)) 5,000 unit BID SC Last administered on 11/14/16 08:22; Admin Dose 5,000 UNIT; Start 11/13/16 at 21:00 TANYA PRUETT MD Nov 14, 2016 15:03
--- NOTE | 2016-11-14 15:36 | DS ---
Date/Time of Note Date/Time of Note DATE: 11/14/16 TIME: 15:29 Discharge Summary Admission/Discharge Info Admit Date/Time Oct 23, 2016 at 14:38 Discharge Date/Time Final Diagnosis 1. Dizziness and syncope suspect secondary to acute CVA. stable 2. Non-ST elevated myocardial infarction. Likely demand ischemia. - Continue current therapy. Cardiologists following. 3. Essential hypertension. Continue on anti-hypertensives and adjust as needed. 4. End-stage renal disease. Continue on dialysis. Monitor renal panel. 5. 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 Continue physical therapy. 6. Anemia of chronic disease. H&H remained stable. We'll monitor. 7. History of major depression. Continue on Paxil 8. History of dyslipidemia. Continue on statin medication 9. Hyperkalemia. cont with HD. monitor level. Patient Condition: Stable Procedures Patient: ROSIE CASILLAS : 1970 Age: 46 Sex: M MR #: [id number] DOS: 10/23/16 0156 Ordering MD: KIA FREEDMAN Location: E/R Room/Bed: PROCEDURE: MRI Brain without contrast. CLINICAL INDICATION: Weakness, acute CVA TECHNIQUE: MRI of the brain was performed on a [employer] Signa Excite 3.0T scanner with the following sequences obtained: Sagittal and axial T1-weighted, axial T2 -weighted, axial FLAIR, axial diffusion weighted (with ADC map), and coronal GRE. COMPARISON: CT brain 10/22/2016 FINDINGS: Patient motion related artifacts are present which somewhat limit evaluation. No acute/recent ischemic infarction or intracranial hemorrhage is seen. No extra -axial fluid collection is seen. There is no mass effect or midline shift. There is an area of marked decreased T1-weighted/T2-weighted signal intensity centered in the right thalamus extending into the adjacent posterior right sanford radiata with associated susceptibility artifact compatible with chronic blood products/hemorrhage, and minimal adjacent encephalomalacia - gliosis noted in the adjacent posterior limb of the right internal capsule. There is suggestion of a linear tract in the left frontal lobe with mild adjacent gliosis and susceptibility seen on the B0 images of the diffusion weighted sequence, suggestive of the sequela of prior external ventricular drainage. Also seen is suggestion of a punctate focus of susceptibility on the B0 images in the left randall which may reflect a chronic micro hemorrhage. A small chronic lacunar infarct is seen in the deep right frontal white matter. The ventricles and sulci are mild to moderately enlarged compatible with volume loss. There are moderate areas of increased T2-weighted FLAIR signal intensity in the periventricular - deep white matter which are nonspecific but likely reflect chronic small vessel ischemic changes. Flow voids are grossly visible in the proximal intracranial arteries and dural sinuses suggesting patency. The mastoid air cells and paranasal sinuses are grossly clear. IMPRESSION: 1. Somewhat limited evaluation due to motion, without acute intracranial pathology identified. 2. Findings compatible with chronic hemorrhage centered in the right thalamus extending into the right sanford radiata. Also seen is suggestion of a chronic micro hemorrhage in the left randall. 3. Chronic right frontal lacunar infarct. 4. Mild to moderate volume loss, with moderate chronic small vessel ischemic changes. 5. Also noted are findings suggesting the sequela of prior left trans frontal external ventricular drainage. RPTAT: HESO .Jose M Welsh MD, MD Date Time Electronically viewed and signed by .Jose M Welsh MD, on 10/23/2016 11:05 .O/ CC: KIA FREEDMAN Hx of Present Illness This is a 46-year-old unfortunate male with a history of end-stage renal disease on hemodialysis, high blood pressure, and a previous stroke who was at dialysis today when he started having episodes of dizziness and a feeling of near syncope. The patient reported that he also had mild chest discomfort as well as some chest pressure, and because of that, they sent him to the emergency room for further workup. In the emergency room, he was found to have elevated troponins, and a CT scan is concerning for an acute CVA, so he is being admitted for further management. Hospital Course Patient had elevated troponin 0.641. Patient has ESRD on HD. The mildly elevated troponin is likely from renal failure. Cardiolgy does not recommend further cardiac work up. Patient will follow up with cardiology outpatient. MRI brain does not find acute infart or bleeding. Home Meds Active Scripts Megestrol Acetate* (Megace*) 400 Mg/10 Ml Oral.susp, 400 MG PO BID for 30 Days, ML 1 Refill Prov:ROGERIO SOUZA MD 10/26/16 Amlodipine Besylate* (Norvasc*) 10 Mg Tablet, 10 MG PO DAILY for 30 Days, TAB 1 Refill Prov:ROGERIO SOUZA MD 10/26/16 Atorvastatin* (Atorvastatin*) 40 Mg Tablet, 40 MG PO DAILY for 30 Days, TAB 1 Refill Prov:ROGERIO SOUZA MD 10/26/16 Aspirin (Aspirin) 81 Mg Chew, 81 MG PO DAILY for 30 Days, TAB 1 Refill Prov:ROGERIO SOUZA MD 10/26/16 Reported Medications Paroxetine Hcl* (Paroxetine*) 10 Mg Tablet, 10 MG PO DAILY, TAB 10/22/16 Amantadine Hcl* (Amantadine Hcl*) 100 Mg Capsule, 100 MG PO DAILY, #60 CAP 10/22/16 Nifedipine* (Nifedipine ER*) 60 Mg Tablet.sa, 60 MG PO DAILY, TAB.SA 10/22/16 Folic Acid* (Folic Acid*) 1 Mg Tablet, 1 MG PO DAILY, TAB 10/22/16 Pyridoxine Hcl* (Vitamin B-6*) 100 Mg Tablet, 100 MG PO DAILY, TAB 10/22/16 Ranitidine Hcl* (Ranitidine Hcl*) 150 Mg Tablet, 300 MG PO DAILY, #60 TAB 10/22/16 Cholecalciferol* (Vitamin D*) 400 Unit Tablet, 800 UNIT PO QHS, TAB 10/22/16 Sevelamer Hcl* (Renagel*) 800 Mg Tablet, 800 MG PO WITH MEALS, TAB 10/22/16 Multivit/Ca Carb/B Cmplx/Fa* (Germaine-Nae*) 1 Tab Tab, 1 TAB PO DAILY, TAB 10/22/16 Tramadol Hcl* (Ultram*) 50 Mg Tablet, 50 MG PO Q8 Y for PRN, TAB 10/22/16 Docusate Sodium* (Docusate Sodium*) 100 Mg Capsule, 100 MG PO DAILY, #30 CAP 10/22/16 Follow-up Plan Follow up with PCP one week Cardiology 2 weeks Nephrology for HD Neurology for CVA Pending Labs Laboratory Tests Test 11/14/16 05:14 Anion Gap 23 (8-16) Basophils # 0.010^3/ul (0.0-0.1) Basophils % 0.3% (0.0-2.0) Blood Urea Nitrogen 50mg/dl (7-20) Calcium Level 9.4mg/dl (8.4-10.2) Carbon Dioxide Level 25mmol/L (21-31) Chloride Level 96mmol/L (97-110) Creatinine 5.62mg/dl (0.61-1.24) Eosinophils # 0.010^3/ul (0.0-0.5) Eosinophils % 0.6% (0.0-7.0) Glucose Level 94mg/dl (70-220) Hematocrit 26.0% (42.0-52.0) Hemoglobin 8.8g/dl (14.0-18.0) Lymphocytes # 0.310^3/ul (0.8-2.9) Lymphocytes % 6.8% (15.0-51.0) Mean Corpuscular Hemoglobin 32.3pg (29.0-33.0) Mean Corpuscular Hemoglobin Concent 33.8g/dl (32.0-37.0) Mean Corpuscular Volume 95.4fl (82.0-101.0) Mean Platelet Volume 7.8fl (7.4-10.4) Monocytes # 0.710^3/ul (0.3-0.9) Monocytes % 14.9% (0.0-11.0) Neutrophils # 3.810^3/ul (1.6-7.5) Neutrophils % 77.4% (39.0-77.0) Nucleated Red Blood Cells # 0.010^3/ul (0.0-0.0) Nucleated Red Blood Cells % 0.0/100WBC (0.0-0.0) Platelet Count 45580^3/UL (140-440) Potassium Level 5.3mmol/L (3.5-5.1) Red Blood Count 2.7210^6/ul (4.70-6.10) Red Cell Distribution Width 13.3% (11.5-14.5) Sodium Level 139mmol/L (135-144) White Blood Count 4.910^3/ul (4.8-10.8) TANYA PRUETT MD Nov 14, 2016 15:36
--- NOTE | 2016-11-14 19:17 | CONS ---
Date/Time of Note Date/Time of Note DATE: 11/14/16 TIME: 19:16 Assessment/Plan Assessment/Plan Chief Complaint/Hosp Course IMPRESSION: A 46-year-old unfortunate male with the followin. HTN 2. Scw-YZ-cyasuteif myocardial infarction. 3. 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 End-stage renal disease, on hemodialysis. 6. Chronic debility from previous cerebrovascular accident. 7. Anemia of chronic kidney disease with associated leukopenia. 8. Chronic depression. 9 HYPERCALCEMIA hx 10 hyperkalemia hx better PLAN HD am dc planning per pcp sensipar HD am dc juliet dc arb ck labs KAYEXALATE prn hd renal diet Problems: Consultation Date/Type/Reason Admit Date/Time Oct 23, 2016 at 14:38 Initial Consult Date 10/23/16 Type of Consultation: NEPHROLOGY Referring Provider: KIA FREEDMAN 24 HR Interval Summary Constitutional: no complaints Exam/Review of Systems Vital Signs Vitals Vital Signs Date Time Temp Pulse Resp B/P Pulse Ox O2 Delivery O2 Flow Rate FiO2 11/14/16 07:52 98.4 52 18 143/79 100 Intake and Output 11/13/16 11/13/16 11/14/16 15:00 23:00 07:00 Intake Total 200 ml 1200 ml 360 ml Output Total 1900 ml 50 ml Balance 200 ml -700 ml 310 ml Exam ENMT: nl external ears & nose Neck: supple Respiratory: clear to auscultation Cardiovascular: regular rate and rhythm Gastrointestinal: soft Results Result Diagram: 11/14/16 0514 11/14/16 0514 Results 24 hrs Laboratory Tests Test 11/14/16 05:14 Anion Gap 23 H Basophils # 0.0 Basophils % 0.3 Blood Urea Nitrogen 50 H Calcium Level 9.4 Carbon Dioxide Level 25 Chloride Level 96 L Creatinine 5.62 H Eosinophils # 0.0 Eosinophils % 0.6 Glucose Level 94 Hematocrit 26.0 L Hemoglobin 8.8 L Lymphocytes # 0.3 L Lymphocytes % 6.8 L Mean Corpuscular Hemoglobin 32.3 Mean Corpuscular Hemoglobin Concent 33.8 Mean Corpuscular Volume 95.4 Mean Platelet Volume 7.8 Monocytes # 0.7 Monocytes % 14.9 H Neutrophils # 3.8 Neutrophils % 77.4 H Nucleated Red Blood Cells # 0.0 Nucleated Red Blood Cells % 0.0 Platelet Count 249 Potassium Level 5.3 H Red Blood Count 2.72 L Red Cell Distribution Width 13.3 Sodium Level 139 White Blood Count 4.9 # Medications Medications Current Medications Amantadine HCl (Symmetrel) 100 mg DAILY PO Last administered on 11/14/16 08:20 ; Admin Dose 100 MG; Start 10/23/16 at 09:00 Docusate Sodium (Colace) 100 mg DAILY PO Last administered on 11/14/16 08:20; Admin Dose 100 MG; Start 10/23/16 at 09:00 Folic Acid (Folic Acid) 1 mg DAILY PO Last administered on 11/14/16 08:20; Admin Dose 1 MG; Start 10/23/16 at 09:00 Multivit/Ca Carb/ B Cmplx/FA/Prenat (Germaine-Nae) 1 tab DAILY PO Last administered on 11/14/16 08:20; Admin Dose 1 TAB; Start 10/23/16 at 09:00 Nifedipine (Procardia Xl) 60 mg DAILY PO Last administered on 11/14/16 08:20; Admin Dose 60 MG; Start 10/23/16 at 09:00 Paroxetine HCl (Paxil) 10 mg DAILY PO Last administered on 11/14/16 08:19; Admin Dose 10 MG; Start 10/23/16 at 09:00 Pyridoxine HCl (Vitamin B6) 100 mg DAILY PO Last administered on 11/14/16 08: 19; Admin Dose 100 MG; Start 10/23/16 at 09:00 Tramadol HCl (Ultram) 50 mg Q8H PRN PO PRN; Start 10/23/16 at 02:00 Atorvastatin Calcium (Lipitor) 40 mg DAILY PO Last administered on 11/14/16 08 :20; Admin Dose 40 MG; Start 10/23/16 at 09:00 Morphine Sulfate (morphine) 2 mg Q4H PRN IV PAIN Last administered on 11/04/16 20:12; Admin Dose 2 MG; Start 10/24/16 at 01:00 Aspirin (Aspirin) 81 mg DAILY PO Last administered on 11/14/16 08:19; Admin Dose 81 MG; Start 10/25/16 at 09:00 Hydralazine HCl (Apresoline) 10 mg Q6H PRN IV sbp>160mmhg Last administered on 10/28/16 16:34; Admin Dose 10 MG; Start 10/25/16 at 00:00 Cinacalcet (Sensipar) 90 mg DAILY PO Last administered on 11/14/16 08:19; Admin Dose 90 MG; Start 11/02/16 at 09:00 Ranitidine HCl (Zantac) 150 mg DAILY PO Last administered on 11/14/16 08:19; Admin Dose 150 MG; Start 11/03/16 at 09:00 Polyethylene Glycol (Miralax) 17 gm DAILY PO Last administered on 11/13/16 09: 22; Admin Dose 17 GM; Start 11/07/16 at 12:30 Lubiprostone (Amitiza) 24 mcg BID PO Last administered on 11/14/16 08:20; Admin Dose 24 MCG; Start 11/07/16 at 14:00 Epoetin Jonah (Epogen (Esrd)) 10,000 units MoWeFr@17 SC Last administered on 18:30; Admin Dose 10,000 UNITS; Start 11/11/16 at 17:00 Heparin Sodium (Porcine) (Heparin (5000 Units/0.5 ml)) 5,000 unit BID SC Last administered on 11/14/16 08:22; Admin Dose 5,000 UNIT; Start 11/13/16 at 21:00 DEEPAK BERGER MD Nov 14, 2016 19:17
[2016-11-14] MEDS ORDERED: NA POLYST SULFON 15 GM/60 ML BTL PO ONE (20:00)
== END 2016-11-14 19:41 | DRG 64 ==
LOC: E/R 20:08 → TEL 10-23 14:38 → PP2 11-01 17:02
PROVIDERS: ADMIT Family Medicine; ATTEND Family Medicine
PROC: 5A1D60Z (ICD-10-PCS; principal; 2016-10-29)
DX: I63.9 Cerebral infarction, unspecified (principal); I21.4 Non-ST elevation (NSTEMI) myocardial infarction; N18.6 End stage renal disease; I12.0 Hypertensive chronic kidney disease with stage 5 chronic kidney disease or end stage renal disease; I69.954 Hemiplegia and hemiparesis following unspecified cerebrovascular disease affecting left non-dominant side; E83.52 Hypercalcemia; R13.10 Dysphagia, unspecified; I25.10 Atherosclerotic heart disease of native coronary artery without angina pectoris; D63.1 Anemia in chronic kidney disease; F32.9 Major depressive disorder, single episode, unspecified; E78.5 Hyperlipidemia, unspecified; D63.8 Anemia in other chronic diseases classified elsewhere; R53.81 Other malaise; D72.819 Decreased white blood cell count, unspecified; E87.5 Hyperkalemia; I69.998 Other sequelae following unspecified cerebrovascular disease; Z99.2 Dependence on renal dialysis
CPT/HCPCS: 36415; 70450; 70544; 70551; 71010; 76775; 80048; 80053; 80061; 80069; 80076; 82330; 82550; 82553; 82746; 82962; 83036; 83540; 83735; 84100; 84132; 84443; 84484; 85025; 85610; 85730; 87075; 90935; 92526; 92610; 93005; 93306; 93880; 97001; 97110; 97530; 97542; J0360; J0886; J2060; J2270